=== PATIENT | male | born 1955 | race Caucasian/White ===

== ENCOUNTER 2016-09-29 14:08 | Inpatient (IN) | payer MEDICARE, MEDICAID ==
[~2016-09-29] VITALS: Ht 175.3 cm; Wt 102.1 kg
[2016-09-29] VITALS (7 sets, daily range): BP systolic 118–134; BP diastolic 72–89
[~2016-09-29 14:08] MED LIST: IBUPROFEN600 MG ORAL; NORVASC10 MG ORAL; SURMONTIL50 MG PO
[2016-09-29] MEDS ORDERED: UNOBMED (14:30)
[2016-09-29] MEDS ORDERED: Nitroglycerin 2% oint pkt TOPIC ONE ×2 (14:30→14:33)
[2016-09-29] MEDS ORDERED: HYDROmorphone 1mg/ml Carpuject IVP ONE ×2 (14:30→15:45)
[2016-09-29] MEDS ORDERED: Nitroglycerin Subl 0.4mg tab (Bottle Of 25) SL ONE (14:34)
[2016-09-29] MEDS: Nitroglycerin Subl 0.4mg tab (Bottle Of 25) SL PRN ×3 (14:40→15:03)
--- NOTE | 2016-09-29 14:49 | Diagnostic Imaging Report ---
Indication: Chest Pain Comparison: 03/21/14 A single view chest radiograph was obtained. Findings: No definite infiltrate or pulmonary vascular congestion identified. Lung volumes are low. The heart is enlarged. The aorta is mildly enlarged consistent with atherosclerotic vascular disease. The bones are osteopenic. Impression: No acute disease
[2016-09-29 14:50] LABS: BASOPHILS % (AUTO) 1.4 % (0.0-2.0); EOSINOPHILS % (AUTO) 6.3 % (0.0-3.0); LYMPHOCYTES % (AUTO) 22.9 % (20.0-45.0); MEAN CORPUSCULAR HEMOGLOBIN 31.2 PG (27.0-31.0); MEAN CORPUSCULAR HGB CONC 32.9 G/DL (32.0-36.0); MEAN CORPUSCULAR VOLUME 95 FL (80-99); MEAN PLATELET VOLUME 9.5 FL (6.5-10.1); MONOCYTES % (AUTO) 8.1 % (1.0-10.0); NEUTROPHILS % (AUTO) 61.3 % (45.0-75.0); PLATELET COUNT 193 K/UL (150-450); RED BLOOD COUNT 4.54 M/UL (4.70-6.10); RED CELL DISTRIBUTION WIDTH 11.5 % (11.6-14.8); WHITE BLOOD COUNT 4.9 K/UL (4.8-10.8)
[2016-09-29 15:05] LABS: ALANINE AMINOTRANSFERASE 17 U/L (3-41); ALBUMIN/GLOBULIN RATIO 1.8 (1.0-2.7); ANION GAP 16 (5-15); ASPARTATE AMINO TRANSFERASE 23 U/L (5-40); CALCIUM 8.8 mg/dL (8.6-10.2); CARBON DIOXIDE 25 mEQ/L (20-30); CHLORIDE 103 mEQ/L (98-107); CREATININE 1.3 mg/dL (0.7-1.2); GLOMERULAR FILTRATION RATE 56.1 mL/min (>60); HEMOLYSIS 35; SODIUM 144 mEQ/L (135-145); TOTAL PROTEIN 6.2 g/dL (6.6-8.7)
[2016-09-29] MEDS ORDERED: PLAVIX75 MG ORAL (15:07)
[2016-09-29] MEDS ORDERED: LASIX40 MG ORAL (15:07)
[2016-09-29] MEDS ORDERED: NORVASC10 MG ORAL (15:07)
[2016-09-29] MEDS ORDERED: ASPIR 8181 MG ORAL (15:07)
[2016-09-29 15:11] LABS: TROPONIN I < 0.30 ng/mL (<=0.30)
--- NOTE | 2016-09-29 15:16 | Emergency Room Report ---
History of Present Illness General Chief Complaint: Chest Pain Source: Patient Present Illness HPI Patient presents with chest pain that's increasing. He's been having it intermittently over last few days. This morning became severe about 6 AM. Pressure radiating to both shoulders, now is 9/10. He took a baby aspirin this morning. He said stents placed. He also states he's had blood clots in his lungs. He is taking Plavix at this time. Also is on Lasix. He denies any pain in his calves. There is chronic swelling in LE for which he takes Lasix not take this morning. No fevers, productive cough, NVD, change in bowels. No hematuria. No anxiety. Post CABG. Allergies: Coded Allergies: No Known Allergies (Unverified , 03/21/14) Patient History Past Medical History: see triage record Past Surgical History: CABG, PTCA Social History: Denies: smoking Social History Narrative at home Reviewed Nursing Documentation: PMH: Agreed, PSxH: Agreed Nursing Documentation-PMH Past Medical History: No History, Except For Hx Cardiac Problems: Yes - LA 2009, 3 stents, triple bypass 2009, high cholesterol Hx Hypertension: Yes Hx Cancer: No Hx Gastrointestinal Problems: No Hx Neurological Problems: No Review of Systems All Other Systems: negative except mentioned in HPI Physical Exam Vital Signs Date Time Temp Pulse Resp B/P Pulse Ox O2 Delivery O2 Flow Rate FiO2 09/29/16 14:17 98.1 69 9 134/89 09/29/16 14:28 Room Air 09/29/16 14:28 95 2.0 Sp02 EP Interpretation: reviewed, normal General Appearance: well appearing, no apparent distress, GCS 15 Head: normocephalic Eyes: bilateral eye PERRL, bilateral eye normal inspection ENT: moist mucus membranes Neck: supple Respiratory: lungs clear, normal breath sounds Cardiovascular #1: regular rate, rhythm Cardiovascular #2: 2+ radial (R) Gastrointestinal: normal inspection, normal bowel sounds, non tender, no mass, non-distended Musculoskeletal: back normal, gait/station normal, normal range of motion Neurologic: alert, oriented x3 Skin: normal inspection, warm/dry Medical Decision Making Diagnostic Impression: Primary Impression: ACS (acute coronary syndrome) Additional Impression: UTI (urinary tract infection) Qualified Codes: N30.00 - Acute cystitis without hematuria ER Course The patient presents with substernal chest pressure similar to when his head heart attack in the past. Differential includes acute myocardial infarction, acute coronary syndrome, pulmonary embolus, unstable angina, costochondritis, GERD amongst others. Emergent evaluation is undertaken to exclude them I. Also patient will be treated with aspirin nitrates and his analgesics. Labs neg for cardiac injury. Still with pain. EKG without injury. Repeat analgesia. CTA - no PE or dissection. UTI - start antibiotics. Admit telemetry Dr. Coronado. Laboratory Tests Test 09/29/16 14:20 09/29/16 15:30 White Blood Count 4.9 K/UL (4.8-10.8) Red Blood Count 4.54 M/UL (4.70-6.10) L Hemoglobin 14.1 G/DL (14.2-18.0) L Hematocrit 43.1 % (42.0-52.0) Mean Corpuscular Volume 95 FL (80-99) Mean Corpuscular Hemoglobin 31.2 PG (27.0-31.0) H Mean Corpuscular Hemoglobin Concent 32.9 G/DL (32.0-36.0) Red Cell Distribution Width 11.5 % (11.6-14.8) L Platelet Count 193 K/UL (150-450) Mean Platelet Volume 9.5 FL (6.5-10.1) Neutrophils (%) (Auto) 61.3 % (45.0-75.0) Lymphocytes (%) (Auto) 22.9 % (20.0-45.0) Monocytes (%) (Auto) 8.1 % (1.0-10.0) Eosinophils (%) (Auto) 6.3 % (0.0-3.0) H Basophils (%) (Auto) 1.4 % (0.0-2.0) Prothrombin Time 10.0 SEC (9.30-11.50) Prothrombin Time INR 1.0 (0.9-1.1) PTT 28 SEC (23-33) Sodium Level 144 mEQ/L (135-145) Potassium Level 4.0 mEQ/L (3.4-4.9) Chloride Level 103 mEQ/L (98-107) Carbon Dioxide Level 25 mEQ/L (20-30) Anion Gap 16 (5-15) H Blood Urea Nitrogen 24 mg/dL (7-23) H Creatinine 1.3 mg/dL (0.7-1.2) H Estimate Glomerular Filtration Rate 56.1 mL/min (>60) Glucose Level 100 mg/dL (74-106) Calcium Level 8.8 mg/dL (8.6-10.2) Total Bilirubin 0.5 mg/dL (0.0-1.2) Aspartate Amino Transferase (AST) 23 U/L (5-40) Alanine Aminotransferase (ALT) 17 U/L (3-41) Alkaline Phosphatase 67 U/L (40-129) Total Creatine Kinase 241 U/L (38-174) H Troponin I < 0.30 ng/mL (<=0.30) Pro-B-Type Natriuretic Peptide 221 pg/mL (0-125) H Total Protein 6.2 g/dL (6.6-8.7) L Albumin 4.0 g/dL (3.5-5.2) Globulin 2.2 g/dL Albumin/Globulin Ratio 1.8 (1.0-2.7) Urine Color Yellow Urine Appearance Slightly cloudy Urine pH 5 (4.5-8.0) Urine Specific [place] 1.030 (1.005-1.035) Urine Protein 2+ (NEGATIVE) H Urine Glucose (UA) Negative (NEGATIVE) Urine Ketones Negative (NEGATIVE) Urine Occult Blood 2+ (NEGATIVE) H Urine Nitrite Negative (NEGATIVE) Urine Bilirubin Negative (NEGATIVE) Urine Urobilinogen 1 MG/DL (0.0-1.0) H Urine Leukocyte Esterase 1+ (NEGATIVE) H Urine RBC 5-10 /HPF (0 - 0) H Urine WBC 10-15 /HPF (0 - 0) H Urine Squamous Epithelial Cells Occasional /LPF Urine Bacteria Moderate /HPF (NONE) H Urine Opiates Screen Negative (NEGATIVE) Urine Barbiturates Screen Negative (NEGATIVE) Phencyclidine (PCP) Screen Negative (NEGATIVE) Urine Amphetamines Screen Negative (NEGATIVE) Urine Benzodiazepines Screen Negative (NEGATIVE) Urine Cocaine Screen Negative (NEGATIVE) Urine Marijuana (THC) Screen Negative (NEGATIVE) EKG Diagnostic Results Rate: normal Rhythm: NSR ST Segments: no acute changes - bifasicular block Rhythm Strip Diag. Results EP Interpretation: yes Rhythm: NSR, no PVC's, no ectopy Chest X-Ray Diagnostic Results EP Interpretation: Yes Findings: no consolidation, no effusion, no pneumothorax, no acute cardiopulmonary disease, other - CABG Number of Views: 1 CT/MRI/US Diagnostic Results CT/MRI/US Diagnostic Results : Imaging Test Ordered: CTA Impression CTA impression: No evidence of pulmonary embolus. No evidence of aortic dissection or aneurysm. Mild atherosclerotic vascular disease. Old granulomatous disease. Sternotomy. Tiny liver cyst. Hiatal hernia. Last Vital Signs Date Time Temp Pulse Resp B/P Pulse Ox O2 Delivery O2 Flow Rate FiO2 09/29/16 16:07 98.1 09/29/16 16:00 55 15 122/77 98 Room Air 09/29/16 15:00 2.0 Status: improved Disposition: ADMITTED INPATIENT Condition: Serious Referrals: NOT CHOSEN IPA/,REFERRING (PCP) Anirudh Grayson M.D. September 29, 2016 15:16
[2016-09-29 15:57] LABS: KETONES,URINE NEGATIVE (NEGATIVE); LEUKOCYTE ESTERASE ,URINE 1+ (NEGATIVE); NITRITE,URINE NEGATIVE (NEGATIVE); PH,URINE 5 (4.5-8.0); PROTEIN,URINE 2+ (NEGATIVE); UROBILINOGEN,URINE 1 MG/DL (0.0-1.0)
[2016-09-29 15:59] LABS: APPEARANCE,URINE SLIGHTLY CLOUDY
[2016-09-29 16:10] LABS: BACTERIA,URINE MODERATE /HPF; SQUAMOUS EPITHELIAL CELL,UR OCCASIONAL /LPF (NONE/OCC)
--- NOTE | 2016-09-29 16:14 | Diagnostic Imaging Report ---
Indication: Chest pain Technique: Continuous helical transaxial imaging of the chest was obtained from the thoracic inlet to the upper abdomen during rapid intravenous contrast administration. Arterial phase of enhancement obtained. Coronal 2-D reformats were also obtained and maximum intensity projection images in multiple planes. Study obtained in a Siemens sensation [address] Total Dose length Product (DLP): [address] Dose Index Volume (CTDIvol): 12.6, 63.1, 28.3 mGy Comparison: None Findings: Pulmonary artery is reasonably opacified. There is no filling defect to suggest pulmonary embolus. Aorta is ectatic and mildly enlarged with mural calcification. Hiatal hernia is present. No adenopathy is identified. Calcified granuloma noted at the right lung base. Heart is enlarged. Sternotomy is noted. Tiny hypodensity noted in the lateral segment left lobe of the liver. This is probably a small cyst. Impression: No evidence of pulmonary embolus. No evidence of aortic dissection or aneurysm. Mild atherosclerotic vascular disease Old granulomatous disease Sternotomy Tiny liver cyst. Hiatal hernia The CT scanner at [facility] is accredited by the [employer] and the scans are performed using protocols designed to limit radiation exposure to as low as reasonably achievable to attain images of sufficient resolution adequate for diagnostic evaluation.
[2016-09-29] MEDS ORDERED: cefTRIAXone 1 GM in NS 55 ML IVPB ONE (16:45)
[2016-09-29] MEDS ORDERED: Miralax 17gm pkt ORAL PRN (18:30)
[2016-09-29] MEDS ORDERED: Ketorolac 30mg Inj IV PRN (18:30)
[2016-09-29] MEDS ORDERED: Diltiazem 25mg/5ml IV PRN (18:30)
[2016-09-29] MEDS ORDERED: Enalaprilat 2.5mg/2ml Inj IV PRN (18:30)
[2016-09-29] MEDS ORDERED: DuoNeb 0.5-3(2.5)mg/3ml neb HHN PRN (18:30)
[2016-09-29] MEDS ORDERED: Nitroglycerin Subl 0.4mg tab (Bottle Of 25) SL PRN (18:45)
--- NOTE | 2016-09-29 19:44 | Consultation ---
Consult Note Consult Note Cardiology for Dr Thompson full note dictated #[id number] ALLIE JENKINS September 29, 2016 19:44
[2016-09-29] MEDS: Heparin 5000 units/ml inj SUBQ SCH (21:00)
[2016-09-29] MEDS: Metoprolol Tartrate 12.5mg TAB ORAL SCH (21:00)
--- NOTE | 2016-09-29 22:58 | Consultation ---
DATE OF CONSULTATION: CARDIOLOGY CONSULTATION REASON FOR CONSULTATION: Chest pain. HISTORY OF PRESENT ILLNESS: The patient is a 60-year-ld white male with history of myocardial infarction in 2009, coronary artery bypass graft surgery in 2009 (hospitalized in [place], records not available) [facility] and most recently hospitalization at [facility] in July 2016. He also has a history of hypertension, hyperlipidemia, and schizoaffective disorder. 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 He presents with chest pain which he states radiated to both shoulders and his left elbow, pain started while he was at rest today at about 9 a.m. and lasted for several hours. He had no associated shortness of breath or palpitations but did note dizziness and felt faint. He was brought to the emergency room by a friend. His initial EKG did not show any ischemic changes. An initial troponin level was negative. He is admitted for further treatment. His most recent hospitalization at [facility] is significant for presentation with chest pain. During that admission, he ruled out for myocardial infarction and underwent stress nuclear study on 08/15/2016. This study showed 3% reversible and 6% fixed perfusion defect. The reversible perfusion defect was small in the apical, left anterior descending territory, and fixed perfusion defect was in the circumflex territory, ejection fraction was 48% by gated SPECT. He underwent an echo as well during that hospitalization, which showed a low normal ejection fraction of 52%. There was mild diastolic dysfunction, mildly depressed right ventricular systolic function, and no regional wall motion abnormalities. There were no significant valvular lesions. MEDICATIONS: Currently Lipitor 10 mg daily, aspirin 81 mg daily, Plavix 75 mg daily, Norvasc 10 mg daily. Triamterene HCT 50/25 daily, and Lasix 40 mg daily. ALLERGIES: No known drug allergies. PAST MEDICAL HISTORY: As noted above. Also history of bilateral knee replacement 2014 and 2015, history of back surgery about 15 to 20 years ago, history of diverticulitis with abdominal surgeries also 15 to 20 years ago. SOCIAL HISTORY: The patient is retired (disabled). He denies alcohol, tobacco, or drug use. PHYSICAL EXAMINATION: VITAL SIGNS: Blood pressure is 128/79, pulse 63 regular, respirations 19, afebrile. GENERAL: Alert, well-developed white male, in no acute distress. HEENT: Normocephalic and atraumatic. Pupils are equal, round, and reactive to light. Sclerae anicteric. Oral mucosa are moist. NECK: Supple. There is no jugular venous distention. No carotid bruits. LUNGS: Clear to auscultation bilaterally. HEART: Regular rate and rhythm. S1 and S2. No murmurs or S3. ABDOMEN: Multiple healed surgical scars. Soft and nontender. No palpable mass. No organomegaly. EXTREMITIES: There are bilateral knee scars, surgical scars, and there is 1+ edema of both distal lower extremities. A 2+ dorsalis pedis pulses bilaterally. LABORATORY AND DIAGNOSTIC DATA: Hemoglobin 14, hematocrit 43, white blood count 4900, platelets 193,000. Sodium 144, potassium 4.0, BUN 24, creatinine 1.3. Troponin less than 0.3. Natriuretic peptide 221. Toxicology screen is negative. Urinalysis 2+ protein, 1+ leukocyte esterase, 5 to 10 red blood cells, 10 to 15 white blood cells. EKG shows sinus rhythm at a rate of 62 beats per minute, left axis deviation, and nonspecific T-wave changes. ASSESSMENT AND RECOMMENDATIONS: The patient is a 60-year-old man with a previous history of myocardial infarction, coronary artery bypass graft surgery and previous stents but with a recent negative stress nuclear study showing only 3% reversible perfusion defect ([facility] He presents now with chest pain. His initial troponin is negative. An initial EKG does not show any definite ischemic changes. He will be admitted to telemetry and will be ruled out for myocardial infarction with serial cardiac enzymes and EKG. His usual cardiac medications will be continued including aspirin, Plavix, statin, and antihypertensives. He will also be started on a beta [place]. Further treatment recommendations will be made based on the results of the above testing. He may have noncardiac cause of his chest pain. Lizzy Ahuja M.D. DR: Amita JOB#: [id number] CC:
[2016-09-30 03:57] VITALS: BP 143/90
[2016-09-30 08:00] VITALS: BP 138/74
[2016-09-30 08:42] LABS: BASOPHILS % (AUTO) 2.7 % (0.0-2.0); EOSINOPHILS % (AUTO) 10.2 % (0.0-3.0); LYMPHOCYTES % (AUTO) 25.1 % (20.0-45.0); MEAN CORPUSCULAR HEMOGLOBIN 31.9 PG (27.0-31.0); MEAN CORPUSCULAR HGB CONC 32.5 G/DL (32.0-36.0); MEAN CORPUSCULAR VOLUME 98 FL (80-99); MEAN PLATELET VOLUME 8.9 FL (6.5-10.1); MONOCYTES % (AUTO) 10.6 % (1.0-10.0); NEUTROPHILS % (AUTO) 51.5 % (45.0-75.0); PLATELET COUNT 176 K/UL (150-450); PROTHROMBIN TIME 10.2 SEC (9.30-11.50); RED BLOOD COUNT 4.26 M/UL (4.70-6.10); RED CELL DISTRIBUTION WIDTH 12.1 % (11.6-14.8); WHITE BLOOD COUNT 3.6 K/UL (4.8-10.8)
[2016-09-30 08:59] LABS: CHOLESTEROL 152 mg/dL (< 200); CHOLESTEROL/HDL RATIO 3.6 (3.3-4.4); CRP QUANT < 0.3 mg/dL (< 0.5); HEMOLYSIS 3; LDL CHOLESTEROL (CALC.) 88 mg/dL (60-99)
[2016-09-30] MEDS ORDERED: Aspirin EC 81mg tab ORAL SCH (09:00)
[2016-09-30] MEDS: Aspirin Baby 81mg ORAL SCH (09:28)
[2016-09-30] MEDS: Furosemide 40mg tab ORAL SCH (09:28)
[2016-09-30] MEDS: Heparin 5000 units/ml inj SUBQ SCH ×2 (09:29→21:02)
[2016-09-30] MEDS: Metoprolol Tartrate 12.5mg TAB ORAL SCH ×2 (09:35→20:59)
--- NOTE | 2016-09-30 11:02 | History and Physical ---
History of Present Illness General Date patient seen: September 30, 2016 Reason for Hospitalization: Chest Pain Present Illness HPI 60 year old male with hx of CAD, PE, IVC, coronary artery stents presents with chest pain. He's been having it intermittently over last few days. Pressure radiating to both shoulders and right now is 9/10. He is also c/o pain in his toes and legs. Allergies: Coded Allergies: No Known Allergies (Unverified , 03/21/14) Medication History Scheduled Amlodipine Besylate (Norvasc), 10 MG ORAL DAILY, (Reported) Amlodipine Besylate (Norvasc), 10 MG ORAL DAILY, (Reported) Aspirin* (Aspir 81*), 81 MG ORAL DAILY, (Reported) Clopidogrel Bisulfate* (Plavix*), 75 MG ORAL DAILY, (Reported) Furosemide* (Lasix*), 40 MG ORAL DAILY, (Reported) Ibuprofen* (Motrin*), 600 MG ORAL THREE TIMES A DAY, (Reported) Discontinued Medications Unable to Obtain Medications (Unable To Obtain Meds), (Reported) Discontinued Reason: MD discontinued med Patient History Healthcare decision maker N Resuscitation status Full Code Advanced Directive on File No Past Medical/Surgical History Past Medical/Surgical History: (1) HTN (hypertension) (2) CAD (coronary artery disease) Review of Systems All Other Systems: negative except mentioned in HPI Physical Exam General Appearance: WD/WN, no apparent distress Lines, tubes and drains: peripheral HEENT: normocephalic, atraumatic Neck: non-tender, normal alignment Respiratory/Chest: chest wall non-tender, lungs clear Breasts: no masses Cardiovascular/Chest: normal peripheral pulses Abdomen: normal bowel sounds Genitourinary/Rectal: normal genital exam Last 24 Hour Vital Signs Date Time Temp Pulse Resp B/P Pulse Ox O2 Delivery O2 Flow Rate FiO2 09/30/16 09:35 65 138/74 09/30/16 09:28 65 138/74 09/30/16 08:00 97.0 65 20 138/74 100 Room Air 09/30/16 08:00 63 09/30/16 04:00 72 09/30/16 03:57 98.5 66 20 143/90 98 Room Air 09/30/16 00:00 83 09/29/16 23:54 98.4 70 20 130/72 92 Room Air 09/29/16 21:00 106 62/52 09/29/16 20:21 98.5 56 21 118/74 98 Room Air 09/29/16 20:00 63 09/29/16 17:15 96.1 63 19 128/79 96 Room Air 09/29/16 16:33 98.1 55 15 122/77 98 Room Air 2.0 09/29/16 16:07 98.1 09/29/16 16:00 55 15 122/77 98 Room Air 09/29/16 15:03 119/75 09/29/16 15:00 88 17 119/75 96 Nasal Cannula 2.0 09/29/16 14:59 98.1 09/29/16 14:45 122/84 09/29/16 14:43 77 13 122/84 94 Nasal Cannula 2.0 09/29/16 14:42 134/89 09/29/16 14:40 134/89 09/29/16 14:28 98.1 69 9 134/89 95 Nasal Cannula 2.0 09/29/16 14:28 69 9 Room Air 09/29/16 14:17 98.1 69 9 134/89 Intake and Output 09/29/16 09/30/16 19:00 07:00 Intake Total 180 ml Output Total 50 ml Balance 130 ml Intake Oral 125 ml IV Total 55 ml Output Urine Total 50 ml # Voids 1 2 Laboratory Tests Test 09/29/16 14:20 09/29/16 15:30 09/30/16 06:30 White Blood Count 4.9 K/UL (4.8-10.8) 3.6 K/UL (4.8-10.8) L Red Blood Count 4.54 M/UL (4.70-6.10) L 4.26 M/UL (4.70-6.10) L Hemoglobin 14.1 G/DL (14.2-18.0) L 13.6 G/DL (14.2-18.0) L Hematocrit 43.1 % (42.0-52.0) 41.7 % (42.0-52.0) L Mean Corpuscular Volume 95 FL (80-99) 98 FL (80-99) Mean Corpuscular Hemoglobin 31.2 PG (27.0-31.0) H 31.9 PG (27.0-31.0) H Mean Corpuscular Hemoglobin Concent 32.9 G/DL (32.0-36.0) 32.5 G/DL (32.0-36.0) Red Cell Distribution Width 11.5 % (11.6-14.8) L 12.1 % (11.6-14.8) Platelet Count 193 K/UL (150-450) 176 K/UL (150-450) Mean Platelet Volume 9.5 FL (6.5-10.1) 8.9 FL (6.5-10.1) Neutrophils (%) (Auto) 61.3 % (45.0-75.0) 51.5 % (45.0-75.0) Lymphocytes (%) (Auto) 22.9 % (20.0-45.0) 25.1 % (20.0-45.0) Monocytes (%) (Auto) 8.1 % (1.0-10.0) 10.6 % (1.0-10.0) H Eosinophils (%) (Auto) 6.3 % (0.0-3.0) H 10.2 % (0.0-3.0) H Basophils (%) (Auto) 1.4 % (0.0-2.0) 2.7 % (0.0-2.0) H Prothrombin Time 10.0 SEC (9.30-11.50) 10.2 SEC (9.30-11.50) Prothromb Time International Ratio 1.0 (0.9-1.1) 1.0 (0.9-1.1) Activated Partial Thromboplast Time 28 SEC (23-33) 28 SEC (23-33) Sodium Level 144 mEQ/L (135-145) Potassium Level 4.0 mEQ/L (3.4-4.9) Chloride Level 103 mEQ/L (98-107) Carbon Dioxide Level 25 mEQ/L (20-30) Anion Gap 16 (5-15) H Blood Urea Nitrogen 24 mg/dL (7-23) H Creatinine 1.3 mg/dL (0.7-1.2) H Estimat Glomerular Filtration Rate 56.1 mL/min (>60) Glucose Level 100 mg/dL (74-106) Calcium Level 8.8 mg/dL (8.6-10.2) Total Bilirubin 0.5 mg/dL (0.0-1.2) Aspartate Amino Transf (AST/SGOT) 23 U/L (5-40) Alanine Aminotransferase (ALT/SGPT) 17 U/L (3-41) Alkaline Phosphatase 67 U/L (40-129) Total Creatine Kinase 241 U/L (38-174) H Troponin I < 0.30 ng/mL (<=0.30) Pro-B-Type Natriuretic Peptide 221 pg/mL (0-125) H Total Protein 6.2 g/dL (6.6-8.7) L Albumin 4.0 g/dL (3.5-5.2) Globulin 2.2 g/dL Albumin/Globulin Ratio 1.8 (1.0-2.7) Urine Color Yellow Urine Appearance Slightly cloudy Urine pH 5 (4.5-8.0) Urine Specific [place] 1.030 (1.005-1.035) Urine Protein 2+ (NEGATIVE) H Urine Glucose (UA) Negative (NEGATIVE) Urine Ketones Negative (NEGATIVE) Urine Occult Blood 2+ (NEGATIVE) H Urine Nitrite Negative (NEGATIVE) Urine Bilirubin Negative (NEGATIVE) Urine Urobilinogen 1 MG/DL (0.0-1.0) H Urine Leukocyte Esterase 1+ (NEGATIVE) H Urine RBC 5-10 /HPF (0 - 0) H Urine WBC 10-15 /HPF (0 - 0) H Urine Squamous Epithelial Cells Occasional /LPF Urine Bacteria Moderate /HPF (NONE) H Urine Opiates Screen Negative (NEGATIVE) Urine Barbiturates Screen Negative (NEGATIVE) Phencyclidine (PCP) Screen Negative (NEGATIVE) Urine Amphetamines Screen Negative (NEGATIVE) Urine Benzodiazepines Screen Negative (NEGATIVE) Urine Cocaine Screen Negative (NEGATIVE) Urine Marijuana (THC) Screen Negative (NEGATIVE) C-Reactive Protein, Quantitative < 0.3 mg/dL (< 0.5) Triglycerides Level 109 mg/dL (< 150) Cholesterol Level 152 mg/dL (< 200) LDL Cholesterol 88 mg/dL (60-99) HDL Cholesterol 42 mg/dL (> 60) Cholesterol/HDL Ratio 3.6 (3.3-4.4) Thyroid Stimulating Hormone (TSH) 1.470 uIU/mL (0.300-4.500) Microbiology Date/Time Source Procedure Growth Status 09/29/16 15:30 Urine,Clean Catch Urine Culture - Preliminary NO GROWTH Resulted Height (Feet): 5 Height (Inches): 9.00 Weight (Pounds): 225 Medications Current Medications Medications (Trade) Dose Ordered Sig/Hal Route PRN Reason Start Time Stop Time Status Last Admin Dose Admin Acetaminophen (Tylenol) 650 mg Q4H PRN ORAL T>100.5 09/29/16 18:30 10/29/16 18:29 Albuterol/ Ipratropium (DuoNeb 0.5-3(2.5)mg/3ml) 3 ml Q4H PRN HHN Shortness of Breath 09/29/16 18:30 10/04/16 18:29 Amlodipine Besylate (Norvasc) 10 mg DAILY ORAL 09/30/16 09:00 10/30/16 08:59 09/30/16 09:28 Aspirin (ASA) 162 mg DAILY ORAL 09/30/16 09:00 10/30/16 08:59 09/30/16 09:28 Clopidogrel Bisulfate (Plavix) 75 mg DAILY ORAL 09/30/16 09:00 10/30/16 08:59 09/30/16 09:28 Diltiazem HCl (Cardizem) 10 mg EVERY HOUR PRN IV heart rate more than 120 09/29/16 18:30 10/29/16 18:29 Enalaprilat (Vasotec) 2.5 mg EVERY 6 HOURS PRN IV sbp more than 160 09/29/16 18:30 10/29/16 18:29 Furosemide (Lasix) 40 mg DAILY ORAL 09/30/16 09:00 10/30/16 08:59 09/30/16 09:28 Heparin Sodium (Porcine) (Heparin 5000 units/ml) 5,000 units EVERY 12 HOURS SUBQ 09/29/16 21:00 10/29/16 20:59 09/30/16 09:29 Metoprolol Tartrate (Lopressor) 12.5 mg Q12HR ORAL 09/29/16 21:00 10/29/16 20:59 09/30/16 09:35 Morphine Sulfate (Morphine Sulfate) 2 mg Q4H PRN IVP Severe Pain (Pain Scale 7-10) 09/29/16 18:30 10/06/16 18:29 Nitroglycerin (Ntg) 0.4 mg Q5MIN X 3 DOSES PRN SL Prn Chest Pain 09/29/16 18:45 10/29/16 18:44 Ondansetron HCl (Zofran) 4 mg Q6H PRN IVP Nausea & Vomiting 09/29/16 18:30 10/29/16 18:29 Pantoprazole (Protonix) 40 mg DAILY ORAL 09/30/16 09:00 10/30/16 08:59 09/30/16 09:28 Polyethylene Glycol (Miralax) 17 gm DAILYPRN PRN ORAL Constipation 09/29/16 18:30 10/29/16 18:29 Temazepam (Restoril) 15 mg HSPRN PRN ORAL Insomnia 09/29/16 21:00 10/06/16 20:59 Assessment/Plan Problem List: (1) ACS (acute coronary syndrome) ICD Codes: I20.0 - Unstable angina SNOMED: 003563910 (2) HTN (hypertension) ICD Codes: I10 - Essential (primary) hypertension SNOMED: 67028154 (3) CAD (coronary artery disease) ICD Codes: I25.10 - Atherosclerotic heart disease of [place] coronary artery without angina pectoris SNOMED: 21307818 Assessment/Plan serial ekg, troponin echo monitor BP cardio evaluation CHANDLER MARIA September 30, 2016 11:02
[2016-09-30] MEDS: Morphine Sulfate 2mg/ml Inj IVP PRN ×3 (11:19→20:57)
[2016-09-30 12:00] VITALS: BP 149/98
--- NOTE | 2016-09-30 14:12 | Cardiology Progress Note ---
Assessment/Plan Status: stable, unchanged Status Narrative Atypical CP in pt w/ hx of CAD , previous CABG Recent stress nuc negative for ischemia ( 3% rev perf defect) at [facility] in 07/2016 Pt ruling out for [place] Assessment/Plan Check additional troponin, EKG Continue pt's usual meds for CAD Advance metoprolol for BP control ECHO to evaluate LV wall motion. Consider further eval for noncardiac causes of chest pain if rules out ( ? musculoskel or gi) Subjective ROS Limited/Unobtainable: No Subjective Cardiology - coverage for Dr. Thompson Pt continues to c/o chest pain and bilat shoulder pain, worse w/ movement. States pain present for a few days. Objective Last 24 Hour Vital Signs Date Time Temp Pulse Resp B/P Pulse Ox O2 Delivery O2 Flow Rate FiO2 09/30/16 12:00 97.2 69 20 149/98 95 Room Air 09/30/16 12:00 65 09/30/16 11:45 97.0 09/30/16 09:35 65 138/74 09/30/16 09:28 65 138/74 09/30/16 08:00 97.0 65 20 138/74 100 Room Air 09/30/16 08:00 63 09/30/16 04:00 72 09/30/16 03:57 98.5 66 20 143/90 98 Room Air 09/30/16 00:00 83 09/29/16 23:54 98.4 70 20 130/72 92 Room Air 09/29/16 21:00 106 62/52 09/29/16 20:21 98.5 56 21 118/74 98 Room Air 09/29/16 20:00 63 09/29/16 17:15 96.1 63 19 128/79 96 Room Air 09/29/16 16:33 98.1 55 15 122/77 98 Room Air 2.0 09/29/16 16:07 98.1 09/29/16 16:00 55 15 122/77 98 Room Air 09/29/16 15:03 119/75 09/29/16 15:00 88 17 119/75 96 Nasal Cannula 2.0 09/29/16 14:59 98.1 09/29/16 14:45 122/84 09/29/16 14:43 77 13 122/84 94 Nasal Cannula 2.0 09/29/16 14:42 134/89 09/29/16 14:40 134/89 09/29/16 14:28 98.1 69 9 134/89 95 Nasal Cannula 2.0 09/29/16 14:28 69 9 Room Air 09/29/16 14:17 98.1 69 9 134/89 General Appearance: WD/WN, no apparent distress, alert EENT: PERRL/EOMI Neck: supple, no JVD Rhythm: NSR Cardiovascular: normal rate, regular rhythm, no gallop/murmur Respiratory/Chest: lungs clear Abdomen: non tender, soft Extremities: no swelling Intake and Output 09/29/16 09/30/16 19:00 07:00 Intake Total 180 ml Output Total 50 ml Balance 130 ml Intake Oral 125 ml IV Total 55 ml Output Urine Total 50 ml # Voids 1 2 Laboratory Tests Test 09/29/16 14:20 09/29/16 15:30 09/30/16 06:30 White Blood Count 4.9 K/UL (4.8-10.8) 3.6 K/UL (4.8-10.8) L Red Blood Count 4.54 M/UL (4.70-6.10) L 4.26 M/UL (4.70-6.10) L Hemoglobin 14.1 G/DL (14.2-18.0) L 13.6 G/DL (14.2-18.0) L Hematocrit 43.1 % (42.0-52.0) 41.7 % (42.0-52.0) L Mean Corpuscular Volume 95 FL (80-99) 98 FL (80-99) Mean Corpuscular Hemoglobin 31.2 PG (27.0-31.0) H 31.9 PG (27.0-31.0) H Mean Corpuscular Hemoglobin Concent 32.9 G/DL (32.0-36.0) 32.5 G/DL (32.0-36.0) Red Cell Distribution Width 11.5 % (11.6-14.8) L 12.1 % (11.6-14.8) Platelet Count 193 K/UL (150-450) 176 K/UL (150-450) Mean Platelet Volume 9.5 FL (6.5-10.1) 8.9 FL (6.5-10.1) Neutrophils (%) (Auto) 61.3 % (45.0-75.0) 51.5 % (45.0-75.0) Lymphocytes (%) (Auto) 22.9 % (20.0-45.0) 25.1 % (20.0-45.0) Monocytes (%) (Auto) 8.1 % (1.0-10.0) 10.6 % (1.0-10.0) H Eosinophils (%) (Auto) 6.3 % (0.0-3.0) H 10.2 % (0.0-3.0) H Basophils (%) (Auto) 1.4 % (0.0-2.0) 2.7 % (0.0-2.0) H Prothrombin Time 10.0 SEC (9.30-11.50) 10.2 SEC (9.30-11.50) Prothromb Time International Ratio 1.0 (0.9-1.1) 1.0 (0.9-1.1) Activated Partial Thromboplast Time 28 SEC (23-33) 28 SEC (23-33) Sodium Level 144 mEQ/L (135-145) Potassium Level 4.0 mEQ/L (3.4-4.9) Chloride Level 103 mEQ/L (98-107) Carbon Dioxide Level 25 mEQ/L (20-30) Anion Gap 16 (5-15) H Blood Urea Nitrogen 24 mg/dL (7-23) H Creatinine 1.3 mg/dL (0.7-1.2) H Estimat Glomerular Filtration Rate 56.1 mL/min (>60) Glucose Level 100 mg/dL (74-106) Calcium Level 8.8 mg/dL (8.6-10.2) Total Bilirubin 0.5 mg/dL (0.0-1.2) Aspartate Amino Transf (AST/SGOT) 23 U/L (5-40) Alanine Aminotransferase (ALT/SGPT) 17 U/L (3-41) Alkaline Phosphatase 67 U/L (40-129) Total Creatine Kinase 241 U/L (38-174) H Troponin I < 0.30 ng/mL (<=0.30) Pro-B-Type Natriuretic Peptide 221 pg/mL (0-125) H Total Protein 6.2 g/dL (6.6-8.7) L Albumin 4.0 g/dL (3.5-5.2) Globulin 2.2 g/dL Albumin/Globulin Ratio 1.8 (1.0-2.7) Urine Color Yellow Urine Appearance Slightly cloudy Urine pH 5 (4.5-8.0) Urine Specific [place] 1.030 (1.005-1.035) Urine Protein 2+ (NEGATIVE) H Urine Glucose (UA) Negative (NEGATIVE) Urine Ketones Negative (NEGATIVE) Urine Occult Blood 2+ (NEGATIVE) H Urine Nitrite Negative (NEGATIVE) Urine Bilirubin Negative (NEGATIVE) Urine Urobilinogen 1 MG/DL (0.0-1.0) H Urine Leukocyte Esterase 1+ (NEGATIVE) H Urine RBC 5-10 /HPF (0 - 0) H Urine WBC 10-15 /HPF (0 - 0) H Urine Squamous Epithelial Cells Occasional /LPF Urine Bacteria Moderate /HPF (NONE) H Urine Opiates Screen Negative (NEGATIVE) Urine Barbiturates Screen Negative (NEGATIVE) Phencyclidine (PCP) Screen Negative (NEGATIVE) Urine Amphetamines Screen Negative (NEGATIVE) Urine Benzodiazepines Screen Negative (NEGATIVE) Urine Cocaine Screen Negative (NEGATIVE) Urine Marijuana (THC) Screen Negative (NEGATIVE) C-Reactive Protein, Quantitative < 0.3 mg/dL (< 0.5) Triglycerides Level 109 mg/dL (< 150) Cholesterol Level 152 mg/dL (< 200) LDL Cholesterol 88 mg/dL (60-99) HDL Cholesterol 42 mg/dL (> 60) Cholesterol/HDL Ratio 3.6 (3.3-4.4) Thyroid Stimulating Hormone (TSH) 1.470 uIU/mL (0.300-4.500) Microbiology Date/Time Source Procedure Growth Status 09/29/16 15:30 Urine,Clean Catch Urine Culture - Preliminary NO GROWTH Resulted ALLIE JENKINS September 30, 2016 14:12
[2016-09-30 15:10] LABS: TROPONIN I < 0.30 ng/mL (<=0.30)
[2016-09-30 16:00] VITALS: BP 140/88
--- NOTE | 2016-09-30 17:33 | Cardiology Report ---
APPROVED REPORT EKG Measurement Heart [id number] Normal sinus rhythm Left axis deviation Incomplete right bundle branch block Minimal voltage criteria for LVH, may be normal variant Abnormal ECG
[2016-09-30 20:16] VITALS: BP 145/84
[2016-09-30 21:29] LABS: TROPONIN I < 0.30 ng/mL (<=0.30)
[2016-09-30 23:49] VITALS: BP 136/82
[2016-10-01 03:43] LABS: TROPONIN I < 0.30 ng/mL (<=0.30)
[2016-10-01 03:54] VITALS: BP 133/88
[2016-10-01 08:33] VITALS: BP 145/87
[2016-10-01] MEDS: Metoprolol Tartrate 12.5mg TAB ORAL SCH ×2 (08:33→20:53)
[2016-10-01] MEDS: Furosemide 40mg tab ORAL SCH (08:34)
[2016-10-01] MEDS: Aspirin Baby 81mg ORAL SCH (08:34)
[2016-10-01] MEDS: Heparin 5000 units/ml inj SUBQ SCH ×2 (08:37→20:54)
--- NOTE | 2016-10-01 11:07 | Pulmonology Progress Note ---
Assessment/Plan Problems: (1) ACS (acute coronary syndrome) (2) HTN (hypertension) (3) CAD (coronary artery disease) Assessment/Plan f/u by cardio check echo enzymes negative symptomatic treatment Subjective ROS Limited/Unobtainable: No Interval Events: chest pain is 08/04 Allergies: Coded Allergies: No Known Allergies (Unverified , 03/21/14) Objective Last 24 Hour Vital Signs Date Time Temp Pulse Resp B/P Pulse Ox O2 Delivery O2 Flow Rate FiO2 10/01/16 08:34 86 145/87 10/01/16 08:33 97.3 86 18 145/87 97 Room Air 10/01/16 08:33 86 145/87 10/01/16 07:45 65 18 Room Air 10/01/16 07:45 65 18 Room Air 21 10/01/16 04:00 92 10/01/16 03:54 98.1 65 20 133/88 95 Room Air 10/01/16 00:00 72 09/30/16 23:49 98.2 60 21 136/82 94 Room Air 09/30/16 20:59 69 145/84 09/30/16 20:16 98.8 69 20 145/84 93 Room Air 09/30/16 20:00 58 09/30/16 16:00 77 09/30/16 16:00 97.3 62 20 140/88 96 Room Air 09/30/16 15:50 97.2 09/30/16 12:00 97.2 69 20 149/98 95 Room Air 09/30/16 12:00 65 Intake and Output 09/30/16 10/01/16 19:00 07:00 Intake Total 320 ml Balance 320 ml Intake Oral 320 ml # Voids 4 2 General Appearance: WD/WN HEENT: normocephalic, atraumatic Respiratory/Chest: chest wall non-tender, lungs clear Cardiovascular: normal peripheral pulses, normal rate Abdomen: normal bowel sounds, soft, non tender Genitourinary: normal external genitalia Extremities: no cyanosis Skin: no rash Neurologic/Psychiatric: atm servicer II-XII grossly normal, no motor/sensory deficits Lymphatic: no groin adenopathy Microbiology Date/Time Source Procedure Growth Status 09/29/16 15:30 Urine,Clean Catch Urine Culture - Final NO GROWTH AFTER 48 HOURS Complete Laboratory Tests 09/30/16 14:25: Troponin I < 0.30 5/6/17 20:57: Troponin I < 0.30 10/01/16 02:55: Troponin I < 0.30 Current Medications Medications (Trade) Dose Ordered Sig/Hal Route PRN Reason Start Time Stop Time Status Last Admin Dose Admin Acetaminophen (Tylenol) 650 mg Q4H PRN ORAL T>100.5 09/29/16 18:30 10/29/16 18:29 Albuterol/ Ipratropium (DuoNeb 0.5-3(2.5)mg/3ml) 3 ml Q4H PRN HHN Shortness of Breath 09/29/16 18:30 10/04/16 18:29 Amlodipine Besylate (Norvasc) 10 mg DAILY ORAL 09/30/16 09:00 10/30/16 08:59 10/01/16 08:34 Aspirin (ASA) 162 mg DAILY ORAL 09/30/16 09:00 10/30/16 08:59 10/01/16 08:34 Clopidogrel Bisulfate (Plavix) 75 mg DAILY ORAL 09/30/16 09:00 10/30/16 08:59 10/01/16 08:34 Diltiazem HCl (Cardizem) 10 mg EVERY HOUR PRN IV heart rate more than 120 09/29/16 18:30 10/29/16 18:29 Enalaprilat (Vasotec) 2.5 mg EVERY 6 HOURS PRN IV sbp more than 160 09/29/16 18:30 10/29/16 18:29 Furosemide (Lasix) 40 mg DAILY ORAL 09/30/16 09:00 10/30/16 08:59 10/01/16 08:34 Heparin Sodium (Porcine) (Heparin 5000 units/ml) 5,000 units EVERY 12 HOURS SUBQ 09/29/16 21:00 10/29/16 20:59 10/01/16 08:37 Metoprolol Tartrate (Lopressor) 25 mg Q12HR ORAL 09/30/16 21:00 10/30/16 20:59 10/01/16 08:33 Morphine Sulfate (Morphine Sulfate) 2 mg Q4H PRN IVP Severe Pain (Pain Scale 7-10) 09/29/16 18:30 10/06/16 18:29 09/30/16 20:57 Nitroglycerin (Ntg) 0.4 mg Q5MIN X 3 DOSES PRN SL Prn Chest Pain 09/29/16 18:45 10/29/16 18:44 Ondansetron HCl (Zofran) 4 mg Q6H PRN IVP Nausea & Vomiting 09/29/16 18:30 10/29/16 18:29 09/30/16 20:52 Pantoprazole (Protonix) 40 mg DAILY ORAL 09/30/16 09:00 10/30/16 08:59 10/01/16 08:34 Polyethylene Glycol (Miralax) 17 gm DAILYPRN PRN ORAL Constipation 09/29/16 18:30 10/29/16 18:29 Temazepam (Restoril) 15 mg HSPRN PRN ORAL Insomnia 09/29/16 21:00 10/06/16 20:59 CHANDLER MARIA October 01, 2016 11:07
[2016-10-01 11:38] VITALS: BP 124/64
--- NOTE | 2016-10-01 14:34 | Cardiology Progress Note ---
Assessment/Plan Problem List: (1) CAD (coronary artery disease) (2) ACS (acute coronary syndrome) (3) HTN (hypertension) Status: doing well, stable Status Narrative Atypical CP in pt w/ hx of CAD , previous CABG Recent stress nuc negative for ischemia ( 3% rev perf defect) at [facility] in 07/2016 He has ruled out for DE. BP is controlled Assessment/Plan Can be dc d home from cardiac standpoint. Continue med rx - asa, plavix, b francisco and add statin Continue norvasc for hypertension Subjective ROS Limited/Unobtainable: No Subjective Cardiology - coverage for Dr. Thompson Pt continues to c/o chest pain, - reports improvement, to 5/10 in severity Objective Last 24 Hour Vital Signs Date Time Temp Pulse Resp B/P Pulse Ox O2 Delivery O2 Flow Rate FiO2 10/01/16 12:00 62 10/01/16 11:38 97.3 59 18 124/64 96 Room Air 10/01/16 08:34 86 145/87 10/01/16 08:33 97.3 86 18 145/87 97 Room Air 10/01/16 08:33 86 145/87 10/01/16 08:00 57 10/01/16 07:45 65 18 Room Air 10/01/16 07:45 65 18 Room Air 21 10/01/16 04:00 92 10/01/16 03:54 98.1 65 20 133/88 95 Room Air 10/01/16 00:00 72 09/30/16 23:49 98.2 60 21 136/82 94 Room Air 09/30/16 20:59 69 145/84 09/30/16 20:16 98.8 69 20 145/84 93 Room Air 09/30/16 20:00 58 09/30/16 16:00 77 09/30/16 16:00 97.3 62 20 140/88 96 Room Air 09/30/16 15:50 97.2 General Appearance: WD/WN, no apparent distress, alert EENT: PERRL/EOMI Neck: supple, no JVD Rhythm: NSR Cardiovascular: normal rate, regular rhythm, no gallop/murmur Respiratory/Chest: lungs clear Abdomen: non tender, soft Extremities: no swelling Intake and Output 09/30/16 10/01/16 19:00 07:00 Intake Total 320 ml Balance 320 ml Intake Oral 320 ml # Voids 4 2 Laboratory Tests Test 09/30/16 20:57 10/01/16 02:55 Troponin I < 0.30 ng/mL (<=0.30) < 0.30 ng/mL (<=0.30) Microbiology Date/Time Source Procedure Growth Status 09/29/16 15:30 Urine,Clean Catch Urine Culture - Final NO GROWTH AFTER 48 HOURS Complete ALLIE JENKINS October 01, 2016 14:34
[2016-10-01 15:38] VITALS: BP 126/75
[2016-10-01 18:33] LABS: TROPONIN I < 0.30 ng/mL (<=0.30)
[2016-10-01 20:00] VITALS: BP 148/57
[2016-10-02] VITALS: BP 139/87
[2016-10-02 04:00] VITALS: BP 151/99
[2016-10-02 08:00] VITALS: BP 140/96
--- NOTE | 2016-10-02 08:49 | Cardiology Report ---
APPROVED REPORT EXAM: Two-dimensional and M-mode echocardiogram with Doppler and color Doppler. INDICATION Left ventricular function M-Mode DIMENSIONS IVSd1.0 (0.7-1.1cm)Left Atrium (MM)2.8 (1.6-4.0cm) LVDd4.4 (3.5-5.6cm)Aortic Root3.9 (2.0-3.7cm) PWd0.8 (0.7-1.1cm)Aortic Cusp Exc.2.2 (1.5-2.0cm) LVDs3.1 (2.5-4.0cm) PWs0.9 cm Technically difficult study due to poor acoustic windows. Normal left ventricular chamber size, systolic function and wall motion. Left ventricular ejection fraction estimated to be 55-60%. Mild left ventricular hypertrophy. No evidence of pericardial fat or effusion. Mild left atrial enlargement by 2D. Right cardiac chamber sizes are within normal limits. Focal aortic valve sclerosis with adequate cusp excursion Thickened mitral valve leaflets with normal excursion. Mild mitral annulus and aortic root calcification. Pulmonic valve not well visualized. Normal tricuspid valve structure. IVC is normal in size with physiologic collapse. A color flow and spectral Doppler study was performed and revealed: No aortic regurgitation. Trace mitral regurgitation. Normal left ventricular function. Trace tricuspid regurgitation. Tricuspid systolic velocities suggests peak right ventricular systolic pressure of 28 mmHg Pulmonic regurgitation present.
[2016-10-02] MEDS: Aspirin Baby 81mg ORAL SCH (09:03)
[2016-10-02] MEDS: Furosemide 40mg tab ORAL SCH (09:03)
[2016-10-02] MEDS: Metoprolol Tartrate 12.5mg TAB ORAL SCH (09:04)
[2016-10-02] MEDS: Heparin 5000 units/ml inj SUBQ SCH (09:05)
[2016-10-02 12:00] VITALS: BP 157/84
--- NOTE | 2016-10-02 14:12 | Pulmonology Progress Note ---
Assessment/Plan Problems: (1) ACS (acute coronary syndrome) (2) HTN (hypertension) (3) CAD (coronary artery disease) Assessment/Plan f/u by cardio check echo enzymes negative symptomatic treatment dc home today Subjective ROS Limited/Unobtainable: No Interval Events: doing better, all tesitng were negative Allergies: Coded Allergies: No Known Allergies (Unverified , 03/21/14) Objective Last 24 Hour Vital Signs Date Time Temp Pulse Resp B/P Pulse Ox O2 Delivery O2 Flow Rate FiO2 10/02/16 12:00 97.2 64 19 157/84 96 Room Air 10/02/16 09:12 70 18 Room Air 21 10/02/16 09:04 65 154/103 10/02/16 09:04 65 154/103 10/02/16 08:00 97.2 65 19 140/96 99 Room Air 10/02/16 04:00 97.8 55 20 151/99 99 Room Air 10/02/16 04:00 55 10/02/16 00:00 97.5 59 20 139/87 99 Room Air 10/02/16 00:00 58 10/01/16 20:53 74 130/70 10/01/16 20:00 96.8 60 20 148/57 96 Room Air 10/01/16 20:00 60 10/01/16 20:00 96.8 60 20 148/57 96 Room Air 2.0 21 10/01/16 19:30 70 20 Room Air 21 10/01/16 16:00 62 10/01/16 15:38 97.0 74 18 126/75 97 Room Air Intake and Output 10/01/16 10/02/16 19:00 07:00 Intake Total 600 ml Balance 600 ml Intake Oral 600 ml # Voids 3 2 General Appearance: WD/WN HEENT: normocephalic, atraumatic Respiratory/Chest: chest wall non-tender, lungs clear Cardiovascular: normal peripheral pulses, normal rate Abdomen: normal bowel sounds, soft, non tender Skin: no rash Microbiology Date/Time Source Procedure Growth Status 09/29/16 15:30 Urine,Clean Catch Urine Culture - Final NO GROWTH AFTER 48 HOURS Complete Laboratory Tests 10/01/16 18:10: Troponin I < 0.30 Current Medications Medications (Trade) Dose Ordered Sig/Hal Route PRN Reason Start Time Stop Time Status Last Admin Dose Admin Acetaminophen (Tylenol) 650 mg Q4H PRN ORAL T>100.5 09/29/16 18:30 10/29/16 18:29 Albuterol/ Ipratropium (DuoNeb 0.5-3(2.5)mg/3ml) 3 ml Q4H PRN HHN Shortness of Breath 09/29/16 18:30 10/04/16 18:29 Amlodipine Besylate (Norvasc) 10 mg DAILY ORAL 09/30/16 09:00 10/30/16 08:59 10/02/16 09:04 Aspirin (ASA) 162 mg DAILY ORAL 09/30/16 09:00 10/30/16 08:59 10/02/16 09:03 Atorvastatin Calcium (Lipitor) 10 mg BEDTIME ORAL 10/01/16 21:00 10/31/16 20:59 10/01/16 20:52 Clopidogrel Bisulfate (Plavix) 75 mg DAILY ORAL 09/30/16 09:00 10/30/16 08:59 10/02/16 09:03 Diltiazem HCl (Cardizem) 10 mg EVERY HOUR PRN IV heart rate more than 120 09/29/16 18:30 10/29/16 18:29 Enalaprilat (Vasotec) 2.5 mg EVERY 6 HOURS PRN IV sbp more than 160 09/29/16 18:30 10/29/16 18:29 Furosemide (Lasix) 40 mg DAILY ORAL 09/30/16 09:00 10/30/16 08:59 10/02/16 09:03 Heparin Sodium (Porcine) (Heparin 5000 units/ml) 5,000 units EVERY 12 HOURS SUBQ 09/29/16 21:00 10/29/16 20:59 10/02/16 09:05 Metoprolol Tartrate (Lopressor) 25 mg Q12HR ORAL 09/30/16 21:00 10/30/16 20:59 10/02/16 09:04 Morphine Sulfate (Morphine Sulfate) 2 mg Q4H PRN IVP Severe Pain (Pain Scale 7-10) 09/29/16 18:30 10/06/16 18:29 09/30/16 20:57 Nitroglycerin (Ntg) 0.4 mg Q5MIN X 3 DOSES PRN SL Prn Chest Pain 09/29/16 18:45 10/29/16 18:44 Ondansetron HCl (Zofran) 4 mg Q6H PRN IVP Nausea & Vomiting 09/29/16 18:30 10/29/16 18:29 09/30/16 20:52 Pantoprazole (Protonix) 40 mg DAILY ORAL 09/30/16 09:00 10/30/16 08:59 10/02/16 09:03 Polyethylene Glycol (Miralax) 17 gm DAILYPRN PRN ORAL Constipation 09/29/16 18:30 10/29/16 18:29 Temazepam (Restoril) 15 mg HSPRN PRN ORAL Insomnia 09/29/16 21:00 10/06/16 20:59 CHANDLER MARIA October 02, 2016 14:12
[2016-10-03] MEDS ORDERED: METOPROLOL TART25 MG ORAL (12:54)
--- NOTE | 2016-10-03 13:00 | Discharge Summary ---
Discharge Summary Hospital Course Date of Admission September 29, 2016 at 15:12 Date of Discharge October 02, 2016 at 14:45 Admitting Diagnosis ACUTE CORONARY SYNDROME HPI Salvador Briones is a 60 year old male who was admitted on September 29, 2016 at 15:12 for Acute Coronary Syndrome Hospital Course dc summary #[id number] Discharge Medications New Medications: Metoprolol Tartrate* (Metoprolol Tartrate*) 25 Mg Tablet 25 MG ORAL EVERY 12 HOURS, #60 TAB Continued Medications: Amlodipine Besylate (Norvasc) 10 Mg Tab 10 MG ORAL DAILY, TAB Aspirin* (Aspir 81*) 81 Mg Tablet.dr 81 MG ORAL DAILY, TAB Clopidogrel Bisulfate* (Plavix*) 75 Mg Tablet 75 MG ORAL DAILY, TAB Furosemide* (Lasix*) 40 Mg Tablet 40 MG ORAL DAILY, TAB Ibuprofen* (Motrin*) 600 Mg Tablet 600 MG ORAL THREE TIMES A DAY, TAB 0 Refills Discharge Condition Upon Discharge: stable Discharge Disposition Patient was discharged to Home (01) Discharge Diagnoses: Discharge Instructions Discharge Instructions Special Instructions I have been assigned to complete a D/C Summary on this account. I was not involved in the patient management Linda Rodney NP (Vanchtein) October 03, 2016 12:59
--- NOTE | 2016-10-04 03:08 | Discharge Summary 2 SIG ---
DATE OF ADMISSION: 09/29/2016 DATE OF DISCHARGE: 10/02/2016 REASON FOR ADMISSION: A 60-year-old male with extensive coronary artery disease including history of VA x4 with subsequent stent placement and triple coronary artery bypass graft presented with chest pain for evaluation. The patient reported intermittent chest pain for the last few days. In the morning prior to arrival to the emergency room, it was severe, pressure-like, radiating to both shoulders. The patient quantified the pain as 9/10 on a scale 1 to 10. The patient had baby aspirin this morning. The patient also reported history of blood clots in the lungs. In the past, he was taking Plavix. The patient also is taking Lasix because he gets chronic swelling in his lower extremity. He denies any pain in his calves. No fever. No shortness of breath. No productive cough. No hemoptysis. No nausea. No vomiting. No diarrhea. No hematuria. No change in bowel movement. Workup in the emergency room subsequently involved CTA due to the history of PE. CTA was negative for PE or dissection. Urinalysis was consistent with UTI. The patient started on antibiotics. Urine tox screen was negative. EKG revealed bifascicular block, but normal sinus rhythm. No acute changes. Chest x-ray revealed no acute cardiopulmonary pathology. The patient admitted for further management. ADMITTING DIAGNOSES: 1. Chest pain, rule out acute coronary syndrome. 2. Urinary tract infection. 3. Hypertension. 4. Coronary artery disease. HOSPITAL COURSE: The patient admitted to telemetry floor. Cardiology consult was requested. Serial troponin x4 were negative. EKG revealed no acute ischemic changes. Curriculum Counselor ruled out the patient for acute VA. Curriculum Counselor added beta-francisco to keep blood pressure under control along with a calcium channel francisco to be continued. Continue aspirin and statin. Lipid panel is within normal limits. Continue Plavix as well. Echocardiogram revealed preserved ejection fraction of 55% to 60% and mild left ventricular hypertrophy and right ventricular systolic pressure of 28. According to automobile accessories installer, the patient had an extensive coronary artery disease history of VA, angioplasty, and CABG. His recent stress test showed only 3% reversible profusion defect, which was done in [facility]. According to automobile accessories installer, chest pain is atypical and should be considered other causes such as musculoskeletal origin. Curriculum Counselor cleared the patient for discharge. Pain was controlled likely related to musculoskeletal versus GI symptoms. The patient was cleared for discharge. DISCHARGE DIAGNOSES: 1. Atypical chest pain, likely of musculoskeletal origin. 2. Hypertension. 3. Coronary artery disease. 4. History of myocardial infarction x4 with angioplasty. 5. History of triple coronary artery bypass graft. 6. Hypercholesterolemia. Of note, urine culture was negative and antibiotic discontinued. DISCHARGE MEDICATIONS: See medication reconciliation list. DISCHARGE INSTRUCTIONS: The patient discharged home. Follow up with the primary medical doctor and automobile accessories installer. Soraya Bernabe M.D. I have been assigned to dictate discharge summary on this account and I was not involved in the patient's management. Linda Mamatteawan state hospital for the criminally insaneSusana N.PJuan DR: ERICH JOB#: [id number] CC:
== END 2016-10-02 14:45 | disposition home or self-care (01) | DRG 313 ==
LOC: ENRESERVDT → ENRESERVTM → EMR 14:48 → 2E 15:12 → EDBEDREQ 15:19
DX: R07.89 Other chest pain (principal); I25.2 Old myocardial infarction; N39.0 Urinary tract infection, site not specified; I10 Essential (primary) hypertension; I25.10 Atherosclerotic heart disease of native coronary artery without angina pectoris; E78.00 Pure hypercholesterolemia, unspecified; Z98.61 Coronary angioplasty status
CPT/HCPCS: 36415; 71010; 71275; 80053; 80061; 80300; 81003; 82550; 83880; 84443; 84484; 85025; 85610; 85730; 86140; 87086; 93005; 93306; 94664; 94760; J2405; J7620

== ENCOUNTER 2019-07-19 10:53 | Inpatient (IN) | payer MEDICARE, OTHER ==
[~2019-07-19] VITALS: Ht 188 cm; Wt 106.1 kg
[~2019-07-19 10:53] MED LIST changes: +ASPIR 8181 MG ORAL; +LASIX40 MG ORAL; +METOPROLOL TART25 MG ORAL; +PLAVIX75 MG ORAL; +UNOBMED
[2019-07-19 11:00] VITALS: BP 134/89
--- NOTE | 2019-07-19 11:00 | NUR ---
ED Nurse Note: Pt walked in from home c/o sternal chest pain that radiates to right side of chest and right arm 01/04 since 0700 this morning. Respirations even and unlabored on room air. Vitals stable as documented. Pt placed on monitor and resting in bed.
[2019-07-19] MEDS ORDERED: XARELTO10 MG ORAL (11:06)
[2019-07-19 11:27] LABS: BASOPHILS % (AUTO) 1.3 % (0.0-2.0); EOSINOPHILS % (AUTO) 1.1 % (0.0-3.0); HEMATOCRIT 41.5 % (42.0-52.0); HEMOGLOBIN 14.2 G/DL (14.2-18.0); LYMPHOCYTES % (AUTO) 22.3 % (20.0-45.0); MEAN CORPUSCULAR VOLUME 94 FL (80-99); MONOCYTES % (AUTO) 5.4 % (1.0-10.0); NEUTROPHILS % (AUTO) 69.9 % (45.0-75.0); PLATELET COUNT 166 K/UL (150-450); RED CELL DISTRIBUTION WIDTH 12.8 % (11.6-14.8); WHITE BLOOD COUNT 5.5 K/UL (4.8-10.8)
[2019-07-19 11:30] LABS: ANION GAP 14 mmol/L (5-15); BLOOD UREA NITROGEN 25 mg/dL (7-18); CALCIUM 9.1 MG/DL (8.5-10.1); CARBON DIOXIDE 21 MMOL/L (21-32); CHLORIDE 108 MMOL/L (98-107); CREATININE 1.4 MG/DL (0.55-1.30); SODIUM 143 MMOL/L (136-145)
[2019-07-19] MEDS ORDERED: Nitroglycerin Subl 0.4mg tab SL PRN ×2 (11:30→15:15)
[2019-07-19 11:44] LABS: ALANINE AMINOTRANSFERASE 30 U/L (12-78); ALBUMIN 3.8 G/DL (3.4-5.0); ALBUMIN/GLOBULIN RATIO 1.1 (1.0-2.7); ALKALINE PHOSPHATASE 77 U/L (46-116); ASPARTATE AMINO TRANSFERASE 18 U/L (15-37); BILIRUBIN,TOTAL 1.3 MG/DL (0.2-1.0)
--- NOTE | 2019-07-19 11:44 | NUR ---
ED Nurse Note: reported to dr. Melissa batista's troponin level od 0.117
[2019-07-19 11:46] LABS: BILIRUBIN,DIRECT 0.2 MG/DL (0.0-0.3)
--- NOTE | 2019-07-19 11:50 | Diagnostic Imaging Report ---
EXAM: XR Chest, 1 View CLINICAL HISTORY: CP TECHNIQUE: Frontal view of the chest. COMPARISON: None available FINDINGS: Hardware: None. Lungs/pleura: Elevation of the right hemidiaphragm. Bibasilar opacities likely represent atelectasis. No focal consolidation. Question small left pleural effusion. Heart/mediastinum: Median sternotomy and CABG changes. No cardiomegaly. Soft tissues: Unremarkable. Bones: No acute fracture. Degenerative changes of the acromioclavicular joints. Upper abdomen: Normal. IMPRESSION: Bibasilar opacities likely represent atelectasis. Question small left pleural effusion.
[2019-07-19] MEDS ORDERED: Morphine Sulfate 2mg/ml Inj(IV/IM USE ONLY) ONE (12:07)
[2019-07-19] MEDS ORDERED: Morphine Sulfate 2mg/ml Inj(IV/IM USE ONLY) IVP ONE (12:15)
--- NOTE | 2019-07-19 13:30 | NUR ---
ED Nurse Note: Report given to REYNA Bajwa on 2E
--- NOTE | 2019-07-19 13:40 | NUR ---
ED Nurse Note: Pt transferred safely to 2E on the monitor.
--- NOTE | 2019-07-19 13:45 | NUR ---
NURSE NOTES: Pt brought up from ER via [facility] awake/alert, breathing easily on room air, denies SOB but c/o 7/10 pain in his legs. Pt appears in no significant distress, able to easily ambulate to the bed. Vital signs stable with SR @ 62 on monitor. Lungs clear bilaterally, neck vein flat, trach midline. Abd soft/supple no rigidity/masses/guarding. Pt asking for food and phone, given. Bed left in low position, side rails u p x 2 and call light left near pt's hand. Addendum: 07/20/19 at 0741 by Rafiq Rothman RN IV access right forearm flushed with 10 ml NS and locked.
[2019-07-19 14:00] VITALS: BP 138/82
--- NOTE | 2019-07-19 14:02 | Emergency Room Report ---
History of Present Illness General Chief Complaint: Chest Pain Source: Medical Record Present Illness HPI 63-year-old male presents ED for chest pain. Started this morning. Left-sided , burning, 7 out of 10, nonradiating. Denies shortness of breath. Notes leg swelling. Notes history of hypertension. history of triple bypass. Denies smoking or drug use. No other aggravating relieving factors. Denies any other associated symptoms Allergies: Coded Allergies: No Known Allergies (Unverified , 03/21/14) Patient History Past Medical History: HTN, OK, CAD Pertinent Family History: none Social History: Denies: smoking, alcohol use, drug use Immunizations: UTD Reviewed Nursing Documentation: PMH: Agreed; PSxH: Agreed Nursing Documentation-PMH Past Medical History: No History, Except For Hx Cardiac Problems: Yes - OK 2009, 3 stents, triple bypass 2009, high cholesterol Hx Hypertension: Yes Hx Cancer: No Hx Gastrointestinal Problems: No Hx Neurological Problems: No Review of Systems All Other Systems: negative except mentioned in HPI Physical Exam Vital Signs Date Time Temp Pulse Resp B/P (MAP) Pulse Ox O2 Delivery O2 Flow Rate FiO2 07/19/19 10:53 97.9 82 18 133/87 (102) 99 Room Air Sp02 EP Interpretation: reviewed, normal General Appearance: no apparent distress, alert, GCS 15, non-toxic Head: normocephalic, atraumatic Eyes: bilateral eye normal inspection, bilateral eye PERRL ENT: hearing grossly normal, normal pharynx, no angioedema, normal voice Neck: full range of motion, supple/symm/no masses Respiratory: chest non-tender, lungs clear, normal breath sounds, speaking full sentences Cardiovascular #1: regular rate, rhythm, no edema Cardiovascular #2: 2+ carotid (R), 2+ carotid (L), 2+ radial (R), 2+ radial (L) , 2+ dorsalis pedis (R), 2+ dorsalis pedis (L) Gastrointestinal: normal bowel sounds, non tender, soft, non-distended, no guarding, no rebound Rectal: deferred Genitourinary: normal inspection, no CVA tenderness Musculoskeletal: back normal, normal range of motion, gait/station normal, non- tender Neurologic: alert, motor strength/tone normal, oriented x3, sensory intact, responsive, speech normal Psychiatric: judgement/insight normal, memory normal, mood/affect normal, no suicidal/homicidal ideation Reflexes: 3+ bicep (R), 3+ bicep (L), 3+ tricep (R), 3+ tricep (L), 3+ knee (R) , 3+ knee (L) Lymphatic: no adenopathy Medical Decision Making Diagnostic Impression: Primary Impression: ACS (acute coronary syndrome) ER Course Hospital Course 63-year-old male presents ED complaining of chest pain Differential diagnoses include: OK/unstable angina, contusion, muscle strain, PTX, rib fracture Clinical course Patient placed on stretcher. on cardiac monitor technician. After initial history and physical I ordered labs, EKG, chest x-ray, NITRO labs reviewed- no leukocytosis, hb/hct stable, electrolytes ok, trop 0.114, coags ok EKG - NSR, no acute ischemic changes interpeted by me Chest x-ray- sternotomy wires, atelectasis Did not improve after nitro. Given morphine. Case discussed with Dr. Arango and he agreed to accept the patient to his service for further care and support I. I feel this is a highly complex case requiring extensive working including EKG/Rhythm strip, Xray/CT/US, Blood/urine lab work, repeat exams while in ED, and administration of strong opiates/narcotics for pain control, admission to hospital or close patient follow up. Diagnosis - ACS admitted to telemetry in serious condition Labs Test 07/19/19 11:05 07/19/19 12:24 White Blood Count 5.5 K/UL (4.8-10.8) Red Blood Count 4.40 M/UL (4.70-6.10) Hemoglobin 14.2 G/DL (14.2-18.0) Hematocrit 41.5 % (42.0-52.0) Mean Corpuscular Volume 94 FL (80-99) Mean Corpuscular Hemoglobin 32.2 PG (27.0-31.0) Mean Corpuscular Hemoglobin Concent 34.1 G/DL (32.0-36.0) Red Cell Distribution Width 12.8 % (11.6-14.8) Platelet Count 166 K/UL (150-450) Mean Platelet Volume 8.5 FL (6.5-10.1) Neutrophils (%) (Auto) 69.9 % (45.0-75.0) Lymphocytes (%) (Auto) 22.3 % (20.0-45.0) Monocytes (%) (Auto) 5.4 % (1.0-10.0) Eosinophils (%) (Auto) 1.1 % (0.0-3.0) Basophils (%) (Auto) 1.3 % (0.0-2.0) Sodium Level 143 MMOL/L (136-145) Potassium Level 4.0 MMOL/L (3.5-5.1) Chloride Level 108 MMOL/L (98-107) Carbon Dioxide Level 21 MMOL/L (21-32) Anion Gap 14 mmol/L (5-15) Blood Urea Nitrogen 25 mg/dL (7-18) Creatinine 1.4 MG/DL (0.55-1.30) Estimat Glomerular Filtration Rate 51.0 mL/min (>60) Glucose Level 107 MG/DL (74-106) Calcium Level 9.1 MG/DL (8.5-10.1) Total Bilirubin 1.3 MG/DL (0.2-1.0) Direct Bilirubin 0.2 MG/DL (0.0-0.3) Aspartate Amino Transf (AST/SGOT) 18 U/L (15-37) Alanine Aminotransferase (ALT/SGPT) 30 U/L (12-78) Alkaline Phosphatase 77 U/L (46-116) Troponin I 0.117 ng/mL (0.000-0.056) Pro-B-Type Natriuretic Peptide 585 pg/mL (0-125) Total Protein 7.3 G/DL (6.4-8.2) Albumin 3.8 G/DL (3.4-5.0) Globulin 3.5 g/dL Albumin/Globulin Ratio 1.1 (1.0-2.7) Prothrombin Time 10.7 SEC (9.30-11.50) Prothromb Time International Ratio 1.0 (0.9-1.1) Activated Partial Thromboplast Time 26 SEC (23-33) EKG Diagnostic Results Rate: normal Rhythm: NSR ST Segments: no acute changes ASA given to the pt in ED: No - on xarelto Rhythm Strip Diag. Results EP Interpretation: yes Rhythm: NSR, no PVC's, no ectopy Chest X-Ray Diagnostic Results Chest X-Ray Diagnostic Results : Chest X-Ray Ordered: Yes # of Views/Limited/Complete: 1 View Indication: Chest Pain EP Interpretation: Yes Interpretation: no consolidation, no pneumothorax, no acute cardiopulmonary disease Impression: No acute disease Electronically Signed by: Electronically signed by Rod Smith MD Last Vital Signs Date Time Temp Pulse Resp B/P (MAP) Pulse Ox O2 Delivery O2 Flow Rate FiO2 07/19/19 11:00 97.9 79 18 134/89 99 Room Air Status: improved Disposition: ADMITTED INPATIENT Condition: Serious Referrals: NOT CHOSEN IPA/,REFERRING (PCP) Rod Smith MD Jul 19, 2019 14:02
[2019-07-19 16:00] VITALS: BP 138/85
[2019-07-19] MEDS ORDERED: Pneumococcal Vaccine 25mcg/0.5ml IM ONE (17:00)
--- NOTE | 2019-07-19 19:30 | NUR ---
Received patient awake, alert and oriented x4, no distress. Denies c/o chest discomfort.Continue to monitor pt.Bed at its lowest and locked. Sinus rhythm with PVCs on the monitor.
[2019-07-19 20:00] VITALS: BP 126/72
--- NOTE | 2019-07-19 20:45 | NUR ---
NURSE NOTES: Patient c/o pain in the feet from swelling, 12/04. Attempted to give tylenol. Patient refused. Contacted Dr. Arango requesting additional pain medications.
--- NOTE | 2019-07-19 21:50 | NUR ---
HAND-OFF: Report given to Abdi ORELLANA for ff-up of care.
[2019-07-20] VITALS: BP 139/80
[2019-07-20 04:00] VITALS: BP 148/99
--- NOTE | 2019-07-20 07:41 | NUR ---
NURSE NOTES: Pt breathing easily on room air, denies SOB but c/o 7/10 pain in his legs. Trace pitting edema in Bilat lower extrem. Pt appears in no significant distress. Vital signs stable with SR @ 68 on monitor. IV access flushed with 10 ml NS and locked. Lungs clear bilaterally, Bed left in low position, side rails u p x 2 and call light left near pt's hand.
[2019-07-20 08:00] VITALS: BP 120/69
[2019-07-20] MEDS ORDERED: Furosemide 40mg tab ORAL SCH ×2 (09:00→18:00)
[2019-07-20] MEDS: Aspirin EC 81mg tab ORAL SCH (09:12)
[2019-07-20] MEDS: Xarelto 10mg tab ORAL SCH (09:12)
[2019-07-20] MEDS: HYDROcodone/Acetamin 5/325 tab ORAL PRN ×2 (11:01→16:59)
[2019-07-20 12:00] VITALS: BP 125/76
--- NOTE | 2019-07-20 15:15 | History and Physical Report ---
DATE OF ADMISSION: 07/19/2019 HISTORY OF PRESENT ILLNESS: The patient is a 63-year-old male, came to the emergency room for having recurrent chest pain, radiating to the left arm and the patient has had no fever, no chills, no palpitation. The patient also had complicated course of having multiple DVT and PE, had multiple surgeries on the knee and the patient also complained a lot of pain on the right knee. PAST MEDICAL HISTORY: Significant for history of chronic DVT, hypertension, coronary artery disease. MEDICATION: Xarelto. PHYSICAL EXAMINATION: GENERAL: This is an elderly overweight male, who is currently awake, comfortable. VITAL SIGNS: Blood pressure is 130/70, pulse 74, respirations 18. SKIN: Good skin turgor HEENT: NAD. CHEST: Bilateral few crackles. CARDIOVASCULAR: rhythm. ABDOMEN: Soft. Positive bowel sounds. EXTREMITIES: Has 1+ edema. Mild diffuse calf tenderness on the right leg. GENITOURINARY: Deferred. LABORATORY DATA: Troponins are positive. BNP was 500. ASSESSMENT AND PLAN: 1. Acute coronary syndrome. 2. CHF. 3. Hypertension. 4. History of DVT. 5. History of PE. 6. Status post ORIF. We will admit on a telemetry bed, rule out of AK. Consider Cardiology consult. Check 2D echo and continue current medical treatment. Continue Xarelto. Also consider Hematology/Oncology consult. Navneet Arango M.D. DR: OMERO JOB#: [id number] CC:
[2019-07-20 16:00] VITALS: BP 123/72
[2019-07-20] MEDS: Cyclobenzaprine 10mg Tab ORAL SCH (17:59)
--- NOTE | 2019-07-20 19:15 | NUR ---
NURSE NOTES: Received report from Garett An RN. Pt in bed, awake, SR, VS wnl, denies pain. A&O x 3, will continue to monitor closely.
[2019-07-20 20:00] VITALS: BP 131/80
[2019-07-21] VITALS: BP 137/80
[2019-07-21 04:00] VITALS: BP 144/87
[2019-07-21] MEDS: HYDROcodone/Acetamin 5/325 tab ORAL PRN (06:33)
--- NOTE | 2019-07-21 07:32 | NUR ---
HAND-OFF: Report given to Rochelle Carlton RN. Pt in stable condition.
--- NOTE | 2019-07-21 07:55 | Cardiac Electrophysiology PN ---
Subjective Subjective [id number] Objective Last 24 Hour Vital Signs Date Time Temp Pulse Resp B/P (MAP) Pulse Ox O2 Delivery O2 Flow Rate FiO2 07/21/19 04:00 98.6 63 18 144/87 (106) 95 07/21/19 04:00 54 07/21/19 00:00 98.4 53 18 137/80 (99) 95 07/21/19 00:00 53 07/20/19 22:06 60 131/80 07/20/19 21:00 Room Air 07/20/19 20:00 56 07/20/19 20:00 98.6 56 20 131/80 (97) 95 07/20/19 16:00 74 07/20/19 16:00 97.9 70 20 123/72 (89) 95 07/20/19 12:00 61 07/20/19 12:00 97.7 66 20 125/76 (92) 97 72 07/20/19 09:12 73 120/69 07/20/19 09:12 73 120/69 07/20/19 08:27 Room Air 07/20/19 08:00 73 07/20/19 08:00 97.6 68 20 120/69 (86) 96 Intake and Output 07/20/19 07/21/19 19:00 07:00 # Voids 4 3 Odell Lehman MD Jul 21, 2019 07:55
--- NOTE | 2019-07-21 08:00 | NUR ---
NURSE NOTES: Dr. Lehman at bedside. New orders noted and will be carried out.
[2019-07-21 08:35] VITALS: BP 146/86
--- NOTE | 2019-07-21 08:36 | NUR ---
NURSE NOTES: Report received from Kaylee ORELLANA. Patient is observed in bed, awake, alert, oriented, and able to make needs known. Respiratory even and unlabored. Patient denies discomfort or chest pain at this time. IV site is asymptomatic, patent, and intact. Bed is in lowest position with side rails up x2 and brakes are engaged. Encouraged patient to use call light when in need of assistance, pt verbalized understanding. Will continue to monitor.
--- NOTE | 2019-07-21 08:53 | Consultation ---
History of Present Illness General Chief Complaint: Chest Pain Present Illness Allergies: Coded Allergies: No Known Allergies (Unverified , 03/21/14) Medication History Scheduled Amlodipine Besylate (Norvasc), 10 MG ORAL DAILY, (Reported) Aspirin* (Aspir 81*), 81 MG ORAL DAILY, (Reported) Furosemide* (Lasix*), 40 MG ORAL DAILY, (Reported) Metoprolol Tartrate* (Metoprolol Tartrate*), 25 MG ORAL EVERY 12 HOURS Rivaroxaban (Xarelto*), 20 MG ORAL DAILY, (Reported) Discontinued Medications Amlodipine Besylate (Norvasc), 10 MG ORAL DAILY, (Reported) Discontinued Reason: Therapy completed Clopidogrel Bisulfate* (Plavix*), 75 MG ORAL DAILY, (Reported) Discontinued Reason: MD discontinued med Ibuprofen* (Motrin*), 600 MG ORAL THREE TIMES A DAY, (Reported) Discontinued Reason: Therapy completed Patient History Healthcare decision maker Resuscitation status Full Code Advanced Directive on File Physical Exam Last 24 Hour Vital Signs Date Time Temp Pulse Resp B/P (MAP) Pulse Ox O2 Delivery O2 Flow Rate FiO2 07/21/19 08:35 96.8 57 18 146/86 (106) 94 07/21/19 04:00 98.6 63 18 144/87 (106) 95 07/21/19 04:00 54 07/21/19 00:00 98.4 53 18 137/80 (99) 95 07/21/19 00:00 53 07/20/19 22:06 60 131/80 07/20/19 21:00 Room Air 07/20/19 20:00 56 07/20/19 20:00 98.6 56 20 131/80 (97) 95 07/20/19 16:00 74 07/20/19 16:00 97.9 70 20 123/72 (89) 95 07/20/19 12:00 61 07/20/19 12:00 97.7 66 20 125/76 (92) 97 72 07/20/19 09:12 73 120/69 07/20/19 09:12 73 120/69 Intake and Output 07/20/19 07/21/19 19:00 07:00 # Voids 4 3 Height (Feet): 6 Height (Inches): 2.00 Weight (Pounds): 225 Medications Current Medications Medications (Trade) Dose Ordered Sig/Hal Route PRN Reason Start Time Stop Time Status Last Admin Dose Admin Acetaminophen (Tylenol) 650 mg Q4H PRN ORAL Mild Pain/Temp > 100.5 07/19/19 15:15 08/18/19 15:14 Acetaminophen/ Hydrocodone Bitart ([place] 5/325) 1 tab Q6H PRN ORAL pain 4-10 07/20/19 10:15 07/27/19 10:14 07/21/19 06:33 Amlodipine Besylate (Norvasc) 10 mg DAILY ORAL 07/20/19 09:00 08/19/19 08:59 07/20/19 09:12 Aspirin (Ecotrin) 81 mg DAILY ORAL 07/20/19 09:00 08/19/19 08:59 07/20/19 09:12 Atorvastatin Calcium (Lipitor) 80 mg BEDTIME ORAL 07/21/19 21:00 08/20/19 20:59 Clopidogrel Bisulfate (Plavix) 75 mg DAILY ORAL 07/21/19 09:00 08/20/19 08:59 Cyclobenzaprine HCl (Flexeril) 10 mg BID ORAL 07/20/19 18:00 08/19/19 17:59 07/20/19 17:59 Furosemide (Lasix) 40 mg DAILY ORAL 07/21/19 09:00 08/19/19 08:59 Isosorbide Mononitrate (Imdur) 30 mg DAILY ORAL 07/21/19 09:00 08/20/19 08:59 Metoprolol Tartrate (Lopressor) 25 mg EVERY 12 HOURS ORAL 07/19/19 21:00 08/18/19 20:59 07/20/19 22:06 Nitroglycerin (Ntg) 0.4 mg Q5M PRN SL Prn Chest Pain 07/19/19 15:15 08/18/19 15:14 Rivaroxaban (Xarelto) 20 mg DAILY ORAL 07/20/19 09:00 08/19/19 08:59 07/20/19 09:12 Assessment/Plan Assessment/Plan: Hematology Consultation REQ : Navneet Arango RFC: DVT and anemia DOS: 07/21/19 ID 63-year-old male presents ED for chest pain. Started this morning. Left-sided , burning, 7 out of 10, nonradiating. Denies shortness of breath. Notes leg swelling. Notes history of hypertension. history of triple bypass. Denies smoking or drug use. No other aggravating relieving factors. Denies any other associated symptoms, labs have been reviewed, has a hx of dvt lower ext bilaterally, and heme consulted, with hx of xarelto, he is taking chronically Allergies: No Known Allergies (Unverified , 03/21/14) Patient History Past Medical History: HTN, ND, CAD Pertinent Family History: none Social History: Denies: smoking, alcohol use, drug use Immunizations: UTD Reviewed Nursing Documentation: PMH: Agreed; PSxH: Agreed Nursing Documentation-PMH Past Medical History: No History, Except For Hx Cardiac Problems: Yes - ND 2010, 3 stents, triple bypass 2009, high cholesterol Hx Hypertension: Yes Hx Cancer: No Hx Gastrointestinal Problems: No Hx Neurological Problems: No Review of Systems All Other Systems: negative except mentioned in HPI PE Vitals: noted General: no apparent distress, alert Head: normocephalic, atraumatic HEENT: at, ac Neck: supple Resp: chest non-tender, lungs clear, normal breath sounds Cardiovascular: regular rate, rhythm, no edema GI: normal bowel sounds, non tender, soft, non-distended, no guarding, no rebound Gu: normal inspection, no CVA tenderness Musculoskeletal: back normal, normal range of motion Neuro: alert, motor strength/tone normal, oriented x3 Lymphatic: no adenopathy Labs: noted Imaging: reviewed Assessment and Recs: # Bilateral DVt s/p ivc filter placement has been on xarelto --> continue on xarelto at this time, will need this medication lifelong --> no evidence of bleeding at this time is ntoed --> also hx of cardiomyopathy with 4 stents per patient, Dr. Lehman recs noted --> further age appropriate cancer screening # ACS (acute coronary syndrome) --> r/o cardiac condition --> as per cards recs --> hx of stent placement, open heart surgery # Juan - with elev cr --> on ivf and as per renal --> trend cr as needed # Hyperbilirubinemia --> elev total bili and ind bili --> as per gi # Sternotomy wires, atelectasis John Rn and appreciate consultation Tony Santos MD Jul 21, 2019 08:53
[2019-07-21] MEDS: Cyclobenzaprine 10mg Tab ORAL SCH ×2 (10:14→17:52)
[2019-07-21] MEDS: Aspirin EC 81mg tab ORAL SCH (10:14)
[2019-07-21] MEDS: Imdur 30mg tab ORAL SCH (10:14)
[2019-07-21] MEDS: Furosemide 40mg tab ORAL SCH (10:14)
[2019-07-21] MEDS: Xarelto 10mg tab ORAL SCH (10:15)
--- NOTE | 2019-07-21 10:19 | NUR ---
NURSE NOTES: Patient requested the door to be closed and refused bed alarm. Educated patient the side effect of antihypertensive medications such as dizziness and risk for fall, patient verbalized understanding.
[2019-07-21 11:02] LABS: BASOPHILS % (AUTO) 1.4 % (0.0-2.0); EOSINOPHILS % (AUTO) 3.1 % (0.0-3.0); HEMATOCRIT 40.5 % (42.0-52.0); HEMOGLOBIN 14.3 G/DL (14.2-18.0); LYMPHOCYTES % (AUTO) 26.2 % (20.0-45.0); MEAN CORPUSCULAR VOLUME 93 FL (80-99); MONOCYTES % (AUTO) 6.3 % (1.0-10.0); NEUTROPHILS % (AUTO) 63.1 % (45.0-75.0); PLATELET COUNT 158 K/UL (150-450); RED BLOOD COUNT 4.35 M/UL (4.70-6.10); RED CELL DISTRIBUTION WIDTH 13.5 % (11.6-14.8); WHITE BLOOD COUNT 5.8 K/UL (4.8-10.8)
[2019-07-21 11:13] LABS: ANION GAP 4 mmol/L (5-15); BLOOD UREA NITROGEN 24 mg/dL (7-18); CALCIUM 9.2 MG/DL (8.5-10.1); CARBON DIOXIDE 31 MMOL/L (21-32); CHLORIDE 105 MMOL/L (98-107); CREATININE 1.2 MG/DL (0.55-1.30); POTASSIUM 4.1 MMOL/L (3.5-5.1); SODIUM 140 MMOL/L (136-145)
[2019-07-21 11:39] VITALS: BP 133/82
--- NOTE | 2019-07-21 12:15 | Consultation ---
DATE OF CONSULTATION: 07/21/2019 CARDIOLOGY CONSULTATION CONSULTING PHYSICIAN: Odell Lehman M.D. REFERRING PHYSICIAN: Navneet Arango M.D. REASON FOR CONSULTATION: Non-ST elevation myocardial infarction in a patient with history of coronary artery bypass graft. HISTORY OF PRESENT ILLNESS: The patient is a very pleasant 63-year-old gentleman with history of hypertension and coronary artery disease with history of coronary artery bypass graft in 2010 and prior HI as well as history of three stents. He has had most recent stents at [facility] two years ago. The patient also has history of multiple DVTs after his bilateral knee surgery at [facility]. The patient has been on Xarelto for that and has undergone IVC filter. The patient also has history of multiple abdominal surgeries for diverticulitis. The patient was admitted and a Cardiology consultation was requested when he presented with left-sided 7/10 chest pain. His troponin was also elevated. REVIEW OF SYSTEMS: Review of systems was thoroughly performed and was negative other than what was mentioned in the history of present illness. PAST MEDICAL HISTORY: As mentioned above. FAMILY HISTORY: Noncontributory. SOCIAL HISTORY: He lives at home. Does not smoke or drink alcohol. PHYSICAL EXAMINATION: VITAL SIGNS: Blood pressure 144/87, pulse is 54, respirations 18, and he is afebrile. HEAD AND NECK: Showed no JVD or carotid bruits. LUNGS: Clear. CARDIOVASCULAR: Shows regular S1 and S2 with no gallop or murmur. Sternotomy scar is intact. ABDOMEN: Soft, status post multiple surgeries. EXTREMITIES: No pitting edema. LABORATORY AND DIAGNOSTIC DATA: His labs show sodium 142, potassium 4.0, BUN of 25, creatinine 1.4, and glucose of 107. His BNP is 585. His troponin is 0.117 and 0.099. His white count of 5.5, hemoglobin is 14.2, hematocrit 41.5, platelet count 166. His INR is 1. ASSESSMENT AND PLAN: 1. Non-ST elevation myocardial infarction with chest pain and elevated troponin in the patient with history of coronary artery bypass graft and multiple stents. His EKG does not show any ST elevation, actually show sinus rhythm with left anterior fascicular block and mild LVH. We will treat the patient medically at this time with aspirin 81 mg daily and metoprolol 25 mg b.i.d. and add Lipitor to his medical regimen. We will try to transfer the patient to [facility] for cardiac catheterization and coronary intervention. In the meantime, we will repeat cardiac enzymes and add Imdur to his medical regimen. His echocardiogram also showed EF of 55% to 60% with no pericardial effusion. 2. History of recurrent DVT, status post IVC filter, add Xarelto 20 mg daily. 3. Hypertension on metoprolol 25 b.i.d., Norvasc 10 mg daily. I will change the Lasix to 40 mg p.o. daily. 4. History of multiple abdominal surgeries. Admit and we will try to get the records from [facility]. It is of note the patient states that his coronary artery bypass graft was done in the hospital in [place], but does not remember which. Thank you very much, Dr. Arango for allowing me to participate in the care of this patient. Please do not hesitate to contact me for any questions regarding my evaluation. Odell Lehman M.D. DR: XIAO JOB#: [id number] CC:
[2019-07-21 16:00] VITALS: BP 117/75
--- NOTE | 2019-07-21 16:30 | Progress Note ---
DATE: 07/21/2019 SUBJECTIVE: The patient is a 63-year-old male who came with acute coronary syndrome, hypertension, hyperlipidemia, DVT. The patient is doing better. Cardiology on consult. OBJECTIVE: VITAL SIGNS: Stable. CHEST: Bilaterally clear. CARDIOVASCULAR: Regular rhythm. ABDOMEN: Soft. EXTREMITIES: CCE. Mild tenderness of left leg. ASSESSMENT: 1. Acute coronary syndrome. 2. Hypertension. 3. DVT. 4. Hyperlipidemia. PLAN: 1. Continue current treatment. 2. Cardiac workup is in progress. 3. Dr. Lehman is on the consult. 4. A 2 gram sodium diet. 5. Continue Xarelto. Navneet Arango M.D. DR: Megan JOB#: [id number] CC:
--- NOTE | 2019-07-21 19:30 | NUR ---
HAND-OFF: Report given to Kevin RN. Patient is in stable condition. Endorsed plan of care.
[2019-07-21 20:00] VITALS: BP 116/83
[2019-07-21] MEDS: Atorvastatin 80mg tab ORAL SCH (22:48)
[2019-07-22] VITALS: BP 133/75
[2019-07-22] MEDS: HYDROcodone/Acetamin 5/325 tab ORAL PRN ×2 (03:32→12:42)
[2019-07-22 04:00] VITALS: BP 131/77
[2019-07-22 05:04] LABS: ANION GAP 8 mmol/L (5-15); BLOOD UREA NITROGEN 26 mg/dL (7-18); CALCIUM 8.9 MG/DL (8.5-10.1); CARBON DIOXIDE 30 MMOL/L (21-32); CHLORIDE 109 MMOL/L (98-107); CREATININE 1.4 MG/DL (0.55-1.30); POTASSIUM 4.1 MMOL/L (3.5-5.1); SODIUM 147 MMOL/L (136-145)
[2019-07-22 05:18] LABS: BASOPHILS % (AUTO) 1.6 % (0.0-2.0); EOSINOPHILS % (AUTO) 6.3 % (0.0-3.0); HEMATOCRIT 40.4 % (42.0-52.0); HEMOGLOBIN 13.3 G/DL (14.2-18.0); LYMPHOCYTES % (AUTO) 37.4 % (20.0-45.0); MEAN CORPUSCULAR VOLUME 96 FL (80-99); MONOCYTES % (AUTO) 8.4 % (1.0-10.0); NEUTROPHILS % (AUTO) 46.4 % (45.0-75.0); PLATELET COUNT 205 K/UL (150-450); RED BLOOD COUNT 4.23 M/UL (4.70-6.10); RED CELL DISTRIBUTION WIDTH 15.6 % (11.6-14.8)
[2019-07-22 08:03] VITALS: BP 146/95
--- NOTE | 2019-07-22 08:21 | NUR ---
NURSE NOTES: received patient up and ambulate, no c/o pain, not in distress.
[2019-07-22] MEDS: Furosemide 40mg tab ORAL SCH (08:59)
[2019-07-22] MEDS: Imdur 30mg tab ORAL SCH (08:59)
[2019-07-22] MEDS: Cyclobenzaprine 10mg Tab ORAL SCH ×2 (08:59→18:03)
[2019-07-22] MEDS: Aspirin EC 81mg tab ORAL SCH (08:59)
[2019-07-22] MEDS: Xarelto 10mg tab ORAL SCH (09:03)
--- NOTE | 2019-07-22 09:30 | NUR ---
NURSE NOTES: Received pt from CN FE, Pt is awake and alert, pt is in RA, no SOB or acute respiratory distress noted. pt has intact iv access RFA 20G SL. Pt is on continues heart monitoring. all needs attended, bed is locked and is in the lowest position, call light within easy reach. will continue to monitor.
--- NOTE | 2019-07-22 11:47 | Cardiac Electrophysiology PN ---
Assessment/Plan Assessment/Plan 1. Non-ST elevation myocardial infarction with chest pain and elevated troponin in the patient with history of coronary artery bypass graft in [place] in 2014 and multiple stents. His EKG does not show any ST elevation, actually show sinus rhythm with left anterior fascicular block and mild LVH. We will treat the patient medically at this time with aspirin 81 mg daily and metoprolol 25 mg b.i.d. and Lipitor. Stress test at [facility] 12/2018 showed only small to mediaum partially reversible defect in inferolateral wall. His echocardiogram also showed EF of 55% to 60% with no pericardial effusion. Will repeat stress test and if significant ischemia, will transfer for cardiac cath. 2. History of recurrent DVT, status post IVC filter and Xarelto 20 mg daily. 3. Hypertension on metoprolol 25 b.i.d., Norvasc 10 mg daily and Lasix to 40 mg p.o. daily. 4. History of multiple abdominal surgeries. Subjective Subjective No SOB. Only 2/10 CP. Records from [facility] from 2017 reviewed Objective Last 24 Hour Vital Signs Date Time Temp Pulse Resp B/P (MAP) Pulse Ox O2 Delivery O2 Flow Rate FiO2 07/22/19 09:09 Room Air 07/22/19 08:59 146/95 07/22/19 08:59 58 146/95 07/22/19 08:58 58 146/95 07/22/19 08:03 96.3 58 20 146/95 (112) 96 07/22/19 08:00 91 07/22/19 04:00 53 07/22/19 04:00 97.5 63 20 131/77 (95) 97 07/22/19 00:00 53 07/22/19 00:00 97.3 53 20 133/75 (94) 94 07/21/19 22:48 94 116/83 07/21/19 21:00 Room Air 07/21/19 20:00 98.1 90 20 116/83 (94) 95 07/21/19 20:00 90 07/21/19 16:00 97.7 65 20 117/75 (89) 95 07/21/19 15:20 70 Intake and Output 07/21/19 07/22/19 19:00 07:00 Intake Total 840 ml Balance 840 ml Intake Oral 840 ml # Voids 3 4 # Bowel Movements 1 Laboratory Tests Test 07/21/19 16:40 07/22/19 03:00 Troponin I 0.101 ng/mL (0.000-0.056) 0.086 ng/mL (0.000-0.056) White Blood Count 4.0 K/UL (4.8-10.8) L Red Blood Count 4.23 M/UL (4.70-6.10) L Hemoglobin 13.3 G/DL (14.2-18.0) L Hematocrit 40.4 % (42.0-52.0) L Mean Corpuscular Volume 96 FL (80-99) Mean Corpuscular Hemoglobin 31.4 PG (27.0-31.0) H Mean Corpuscular Hemoglobin Concent 32.8 G/DL (32.0-36.0) Red Cell Distribution Width 15.6 % (11.6-14.8) H Platelet Count 205 K/UL (150-450) Mean Platelet Volume 10.8 FL (6.5-10.1) H Neutrophils (%) (Auto) 46.4 % (45.0-75.0) Lymphocytes (%) (Auto) 37.4 % (20.0-45.0) Monocytes (%) (Auto) 8.4 % (1.0-10.0) Eosinophils (%) (Auto) 6.3 % (0.0-3.0) H Basophils (%) (Auto) 1.6 % (0.0-2.0) Sodium Level 147 MMOL/L (136-145) H Potassium Level 4.1 MMOL/L (3.5-5.1) Chloride Level 109 MMOL/L (98-107) H Carbon Dioxide Level 30 MMOL/L (21-32) Anion Gap 8 mmol/L (5-15) Blood Urea Nitrogen 26 mg/dL (7-18) H Creatinine 1.4 MG/DL (0.55-1.30) H Estimat Glomerular Filtration Rate 51.0 mL/min (>60) Glucose Level 99 MG/DL (74-106) Calcium Level 8.9 MG/DL (8.5-10.1) Pro-B-Type Natriuretic Peptide 353 pg/mL (0-125) H Objective HEAD AND NECK: Showed no JVD or carotid bruits. LUNGS: Clear. CARDIOVASCULAR: Shows regular S1 and S2 with no gallop or murmur. Sternotomy scar is intact. ABDOMEN: Soft, status post multiple surgeries. EXTREMITIES: No pitting edema. Odell Lehman MD Jul 22, 2019 11:46
[2019-07-22 12:00] VITALS: BP 126/65
[2019-07-22] MEDS ORDERED: Lexiscan 0.4mg/5ml syringe IV PRN (12:00)
--- NOTE | 2019-07-22 12:40 | NUR ---
NURSE NOTES: pt has pain and swollen bi feet, Dr MARX notified and ordered lora duplex, noted and carried out. will continue to monitor.
[2019-07-22 16:00] VITALS: BP 112/62
--- NOTE | 2019-07-22 16:02 | Diagnostic Imaging Report ---
Indication:Leg pain and swelling Technique: Grayscale and duplex Doppler imaging of the veins in both lower extremities performed in real time utilizing compression and augmentation. Comparison: None Findings: Duplex Doppler interrogation of the veins in both lower extremity is performed from the common femoral vein to the popliteal vein. There is a small focus of nonocclusive thrombus likely chronic within the right SFV. No acute thrombosis identified. Normal venous compressibility demonstrated throughout otherwise. Waveform analysis shows good respiratory phasicity and augmentation. IMPRESSION: Suggestion of mild nonocclusive chronic DVT in the right SFV No evidence of acute deep venous thrombosis involving the lower extremities.
--- NOTE | 2019-07-22 17:25 | Hematology/Onc Progress Note ---
Assessment/Plan Assessment/Plan Assessment and Recs: # Bilateral DVt s/p ivc filter placement has been on xarelto --> continue on xarelto at this time, will need this medication lifelong --> no evidence of bleeding at this time is ntoed --> also hx of cardiomyopathy with 4 stents per patient, Dr. Fallon queen noted --> further age appropriate cancer screening --> 07/22 ve duplex: Suggestion of mild nonocclusive chronic DVT in the right SFV. No evidence of acute deep venous thrombosis involving the lower extremities. # ACS (acute coronary syndrome) --> r/o cardiac condition --> as per cards recs --> hx of stent placement, open heart surgery --> on plavix # Juan - with elev cr --> on ivf and as per renal --> trend cr as needed # Hyperbilirubinemia --> elev total bili and ind bili --> as per gi # Sternotomy wires, atelectasis Dw Rn and appreciate consultation Subjective Allergies: Coded Allergies: No Known Allergies (Unverified , 03/21/14) Subjective 07/22: awake and alert, no overnight events, no sob, reggie duplex reviewed, Objective Objective Current Medications Medications (Trade) Dose Ordered Sig/Hal Route PRN Reason Start Time Stop Time Status Last Admin Dose Admin Acetaminophen (Tylenol) 650 mg Q4H PRN ORAL Mild Pain/Temp > 100.5 07/19/19 15:15 08/18/19 15:14 Acetaminophen/ Hydrocodone Bitart ([place] 5/325) 1 tab Q6H PRN ORAL pain 4-10 07/20/19 10:15 07/27/19 10:14 07/22/19 12:42 Amlodipine Besylate (Norvasc) 10 mg DAILY ORAL 07/20/19 09:00 08/19/19 08:59 07/22/19 08:58 Aspirin (Ecotrin) 81 mg DAILY ORAL 07/20/19 09:00 08/19/19 08:59 07/22/19 08:59 Atorvastatin Calcium (Lipitor) 80 mg BEDTIME ORAL 07/21/19 21:00 08/20/19 20:59 07/21/19 22:48 Clopidogrel Bisulfate (Plavix) 75 mg DAILY ORAL 07/21/19 09:00 08/20/19 08:59 07/22/19 08:58 Cyclobenzaprine HCl (Flexeril) 10 mg BID ORAL 07/20/19 18:00 08/19/19 17:59 07/22/19 08:59 Furosemide (Lasix) 40 mg DAILY ORAL 07/21/19 09:00 08/19/19 08:59 07/22/19 08:59 Isosorbide Mononitrate (Imdur) 30 mg DAILY ORAL 07/21/19 09:00 08/20/19 08:59 07/22/19 08:59 Metoprolol Tartrate (Lopressor) 25 mg EVERY 12 HOURS ORAL 07/19/19 21:00 08/18/19 20:59 07/22/19 08:59 Nitroglycerin (Ntg) 0.4 mg Q5M PRN SL Prn Chest Pain 07/19/19 15:15 08/18/19 15:14 Regadenoson (Lexiscan) 0.4 mg ONCE PRN IV STRESS TEST 07/22/19 12:00 07/24/19 23:59 Rivaroxaban (Xarelto) 20 mg DAILY ORAL 07/20/19 09:00 08/19/19 08:59 07/22/19 09:03 Last 24 Hour Vital Signs Date Time Temp Pulse Resp B/P (MAP) Pulse Ox O2 Delivery O2 Flow Rate FiO2 07/22/19 16:00 97.7 56 20 112/62 (79) 100 07/22/19 15:45 70 07/22/19 12:00 98.1 56 20 126/65 (85) 100 07/22/19 11:53 58 07/22/19 09:09 Room Air 07/22/19 08:59 146/95 07/22/19 08:59 58 146/95 07/22/19 08:58 58 146/95 07/22/19 08:03 96.3 58 20 146/95 (112) 96 07/22/19 08:00 91 07/22/19 04:00 53 07/22/19 04:00 97.5 63 20 131/77 (95) 97 07/22/19 00:00 53 07/22/19 00:00 97.3 53 20 133/75 (94) 94 07/21/19 22:48 94 116/83 07/21/19 21:00 Room Air 07/21/19 20:00 98.1 90 20 116/83 (94) 95 07/21/19 20:00 90 07/21/19 16:00 97.7 65 20 117/75 (89) 95 07/21/19 15:20 70 07/21/19 11:39 97.7 54 20 133/82 (99) 95 07/21/19 11:30 83 07/21/19 10:15 53 146/86 07/21/19 10:14 146/86 07/21/19 10:14 57 146/86 07/21/19 09:00 Room Air 07/21/19 08:35 96.8 57 18 146/86 (106) 94 07/21/19 07:36 54 07/21/19 04:00 98.6 63 18 144/87 (106) 95 07/21/19 04:00 54 07/21/19 00:00 98.4 53 18 137/80 (99) 95 07/21/19 00:00 53 07/20/19 22:06 60 131/80 07/20/19 21:00 Room Air 07/20/19 20:00 56 07/20/19 20:00 98.6 56 20 131/80 (97) 95 Intake and Output 07/21/19 07/22/19 19:00 07:00 Intake Total 840 ml Balance 840 ml Intake Oral 840 ml # Voids 3 4 # Bowel Movements 1 Labs Test 07/20/19 07:36 07/21/19 10:55 07/21/19 16:40 07/22/19 03:00 Troponin I 0.099 ng/mL (0.000-0.056) 0.083 ng/mL (0.000-0.056) 0.101 ng/mL (0.000-0.056) 0.086 ng/mL (0.000-0.056) White Blood Count 5.8 K/UL (4.8-10.8) 4.0 K/UL (4.8-10.8) Red Blood Count 4.35 M/UL (4.70-6.10) 4.23 M/UL (4.70-6.10) Hemoglobin 14.3 G/DL (14.2-18.0) 13.3 G/DL (14.2-18.0) Hematocrit 40.5 % (42.0-52.0) 40.4 % (42.0-52.0) Mean Corpuscular Volume 93 FL (80-99) 96 FL (80-99) Mean Corpuscular Hemoglobin 32.8 PG (27.0-31.0) 31.4 PG (27.0-31.0) Mean Corpuscular Hemoglobin Concent 35.2 G/DL (32.0-36.0) 32.8 G/DL (32.0-36.0) Red Cell Distribution Width 13.5 % (11.6-14.8) 15.6 % (11.6-14.8) Platelet Count 158 K/UL (150-450) 205 K/UL (150-450) Mean Platelet Volume 8.6 FL (6.5-10.1) 10.8 FL (6.5-10.1) Neutrophils (%) (Auto) 63.1 % (45.0-75.0) 46.4 % (45.0-75.0) Lymphocytes (%) (Auto) 26.2 % (20.0-45.0) 37.4 % (20.0-45.0) Monocytes (%) (Auto) 6.3 % (1.0-10.0) 8.4 % (1.0-10.0) Eosinophils (%) (Auto) 3.1 % (0.0-3.0) 6.3 % (0.0-3.0) Basophils (%) (Auto) 1.4 % (0.0-2.0) 1.6 % (0.0-2.0) Sodium Level 140 MMOL/L (136-145) 147 MMOL/L (136-145) Potassium Level 4.1 MMOL/L (3.5-5.1) 4.1 MMOL/L (3.5-5.1) Chloride Level 105 MMOL/L (98-107) 109 MMOL/L (98-107) Carbon Dioxide Level 31 MMOL/L (21-32) 30 MMOL/L (21-32) Anion Gap 4 mmol/L (5-15) 8 mmol/L (5-15) Blood Urea Nitrogen 24 mg/dL (7-18) 26 mg/dL (7-18) Creatinine 1.2 MG/DL (0.55-1.30) 1.4 MG/DL (0.55-1.30) Estimat Glomerular Filtration Rate > 60 mL/min (>60) 51.0 mL/min (>60) Glucose Level 105 MG/DL (74-106) 99 MG/DL (74-106) Calcium Level 9.2 MG/DL (8.5-10.1) 8.9 MG/DL (8.5-10.1) Pro-B-Type Natriuretic Peptide 642 pg/mL (0-125) 353 pg/mL (0-125) Height (Feet): 6 Height (Inches): 2.00 Weight (Pounds): 225 Objective PE Vitals: noted General: no apparent distress, alert Head: normocephalic, atraumatic HEENT: at, ac Neck: supple Resp: chest non-tender, lungs clear, normal breath sounds Cardiovascular: regular rate, rhythm, no edema GI: normal bowel sounds, non tender, soft, non-distended, no guarding, no rebound Gu: normal inspection, no CVA tenderness Musculoskeletal: back normal, normal range of motion Neuro: alert, motor strength/tone normal, oriented x3 Lymphatic: no adenopathy Tony Santos MD Jul 22, 2019 17:25
--- NOTE | 2019-07-22 17:30 | Progress Note ---
DATE: 07/22/2019 SUBJECTIVE: This is a 63-year-old male came to the emergency room for having recurrent chest pain, palpitation, and short of breath. So far, his troponins are negative. The patient is going for stress test tomorrow. He is also complaining back pain and leg pain. PHYSICAL EXAMINATION: VITAL SIGNS: Blood pressure is 126/65, pulse 56, respirations 20, temperature 98.1. HEENT: NAD. CHEST: Bilaterally clear. CARDIOVASCULAR: Regular rhythm. ABDOMEN: Soft. EXTREMITIES: Right leg tenderness. GENITOURINARY: Deferred. LABORATORY DATA: White counts are 4000, hemoglobin 13, hematocrit 40, platelets are 205. Chemistry panel, BUN 26, creatinine 1.4, sodium 147. Troponins are 0.086. BNP was 353. ASSESSMENT: 1. Acute coronary syndrome. 2. PE. 3. DVT. 4. Hyperlipidemia. PLAN: The patient is going for stress test tomorrow. Continue Lipitor, isosorbide, Lasix. Continue Plavix, cyclobenzaprine, and [place] for severe pain and Norvasc 10 mg at bedtime. We will also consider Hematology/Oncology consult for recurrent DVT and PE. Navneet Arango M.D. DR: WALLY JOB#: [id number] CC:
--- NOTE | 2019-07-22 19:10 | NUR ---
HAND-OFF: Report given to DAISY ORELLANA. Pt is stable and sleeping, stress tech KARLOS kumar RN due to stress test will do late tomorrow afternoon, pt can eat breakfast and be NPO after breakfast, pt and DAISY ORELLANA are aware.
--- NOTE | 2019-07-22 19:25 | NUR ---
NURSE NOTES: Patient is asleep in bed. No signs of distress noted at this time. No signs of pain. Bed in the lowest position, call light within reach, side rails up x3. Will continue plan of care.
[2019-07-22 20:00] VITALS: BP 120/69
[2019-07-22] MEDS: Atorvastatin 80mg tab ORAL SCH (21:39)
[2019-07-23] VITALS: BP 119/72
[2019-07-23 04:00] VITALS: BP 110/78
[2019-07-23] MEDS: HYDROcodone/Acetamin 5/325 tab ORAL PRN ×2 (05:58→16:30)
--- NOTE | 2019-07-23 06:35 | Hematology/Onc Progress Note ---
Assessment/Plan Assessment/Plan Assessment and Recs: # Bilateral DVt s/p ivc filter placement has been on xarelto, also a history of recurrent PE --> continue on xarelto at this time, will need this medication lifelong --> no evidence of bleeding at this time is ntoed --> also hx of cardiomyopathy with 4 stents per patient, Dr. Lehman recs noted --> further age appropriate cancer screening --> 07/22 ve duplex: Suggestion of mild nonocclusive chronic DVT in the right SFV. No evidence of acute deep venous thrombosis involving the lower extremities. # Leukopenia borderline --> r/o hepatitis and hiv --> peripheral smear is pending # ACS (acute coronary syndrome) --> as per cards recs --> hx of stent placement, open heart surgery --> on plavix # Juan - with elev cr --> on ivf and as per renal --> trend cr as needed # Hyperbilirubinemia --> elev total bili and ind bili --> as per gi # Sternotomy wires, atelectasis # Dvt ppx xarelto John Rn and appreciate consultation Subjective Constitutional: Denies: no symptoms, chills, fever, malaise, weakness, other HEENT: Denies: no symptoms, eye pain, blurred vision, tearing, double vision, ear pain, ear discharge, nose pain, nose congestion, throat pain, throat swelling, mouth pain, mouth swelling, other Cardiovascular: Denies: no symptoms, chest pain, edema, irregular heart rate, lightheadedness, palpitations, syncope, other Respiratory: Denies: no symptoms, cough, shortness of breath, SOB with excertion, SOB at rest, sputum, wheezing, other Gastrointestinal/Abdominal: Denies: no symptoms, abdomen distended, abdominal pain, black stools, tarry stools, blood in stool, constipated, diarrhea, difficulty swallowing, nausea, poor appetite, poor fluid intake, rectal bleeding , vomiting, other Neurologic/Psychiatric: Denies: no symptoms, anxiety, depressed, emotional problems, headache, numbness, paresthesia, pre-existing deficit, seizure, tingling, tremors, weakness, other Endocrine: Denies: no symptoms, excessive sweating, flushing, intolerance to cold, intolerance to heat, increased hunger, increased thirst, increased urine, unexplained weight gain, unexplained weight loss, other Hematologic/Lymphatic: Denies: no symptoms, anemia, easy bleeding, easy bruising, adenopathy, other Allergies: Coded Allergies: No Known Allergies (Unverified , 03/21/14) Subjective 07/22: awake and alert, no overnight events, no sob, reggie duplex reviewed, 07/23: labs have been reviewed, for stress test today, on xarelto Objective Objective Current Medications Medications (Trade) Dose Ordered Sig/Hal Route PRN Reason Start Time Stop Time Status Last Admin Dose Admin Acetaminophen (Tylenol) 650 mg Q4H PRN ORAL Mild Pain/Temp > 100.5 07/19/19 15:15 08/18/19 15:14 Acetaminophen/ Hydrocodone Bitart ([place] 5/325) 1 tab Q6H PRN ORAL pain 4-10 07/20/19 10:15 07/27/19 10:14 07/23/19 05:58 Amlodipine Besylate (Norvasc) 10 mg DAILY ORAL 07/20/19 09:00 08/19/19 08:59 07/22/19 08:58 Aspirin (Ecotrin) 81 mg DAILY ORAL 07/20/19 09:00 08/19/19 08:59 07/22/19 08:59 Atorvastatin Calcium (Lipitor) 80 mg BEDTIME ORAL 07/21/19 21:00 08/20/19 20:59 07/22/19 21:39 Clopidogrel Bisulfate (Plavix) 75 mg DAILY ORAL 07/21/19 09:00 08/20/19 08:59 07/22/19 08:58 Cyclobenzaprine HCl (Flexeril) 10 mg BID ORAL 07/20/19 18:00 08/19/19 17:59 07/22/19 18:03 Furosemide (Lasix) 40 mg DAILY ORAL 07/21/19 09:00 08/19/19 08:59 07/22/19 08:59 Isosorbide Mononitrate (Imdur) 30 mg DAILY ORAL 07/21/19 09:00 08/20/19 08:59 07/22/19 08:59 Metoprolol Tartrate (Lopressor) 25 mg EVERY 12 HOURS ORAL 07/19/19 21:00 08/18/19 20:59 07/22/19 08:59 Nitroglycerin (Ntg) 0.4 mg Q5M PRN SL Prn Chest Pain 07/19/19 15:15 08/18/19 15:14 Regadenoson (Lexiscan) 0.4 mg ONCE PRN IV STRESS TEST 07/22/19 12:00 07/24/19 23:59 Rivaroxaban (Xarelto) 20 mg DAILY ORAL 07/20/19 09:00 08/19/19 08:59 07/22/19 09:03 Last 24 Hour Vital Signs Date Time Temp Pulse Resp B/P (MAP) Pulse Ox O2 Delivery O2 Flow Rate FiO2 07/23/19 04:00 96.7 66 16 110/78 (89) 98 07/23/19 04:00 60 07/23/19 00:00 97.7 61 15 119/72 (88) 96 07/23/19 00:00 56 07/22/19 21:00 Room Air 07/22/19 21:00 56 07/22/19 20:00 59 07/22/19 20:00 97.2 55 15 120/69 (86) 95 07/22/19 16:00 97.7 56 20 112/62 (79) 100 07/22/19 15:45 70 07/22/19 12:00 98.1 56 20 126/65 (85) 100 07/22/19 11:53 58 07/22/19 09:09 Room Air 07/22/19 08:59 146/95 07/22/19 08:59 58 146/95 07/22/19 08:58 58 146/95 07/22/19 08:03 96.3 58 20 146/95 (112) 96 07/22/19 08:00 91 07/22/19 04:00 53 07/22/19 04:00 97.5 63 20 131/77 (95) 97 07/22/19 00:00 53 07/22/19 00:00 97.3 53 20 133/75 (94) 94 07/21/19 22:48 94 116/83 07/21/19 21:00 Room Air 07/21/19 20:00 98.1 90 20 116/83 (94) 95 07/21/19 20:00 90 07/21/19 16:00 97.7 65 20 117/75 (89) 95 2/24/20 15:20 70 07/21/19 11:39 97.7 54 20 133/82 (99) 95 07/21/19 11:30 83 07/21/19 10:15 53 146/86 07/21/19 10:14 146/86 07/21/19 10:14 57 146/86 07/21/19 09:00 Room Air 07/21/19 08:35 96.8 57 18 146/86 (106) 94 07/21/19 07:36 54 Intake and Output 07/22/19 07/23/19 19:00 07:00 Intake Total 890 ml 600 ml Balance 890 ml 600 ml Intake Oral 890 ml 600 ml # Voids 6 5 # Bowel Movements 1 1 Labs Test 07/20/19 07:36 07/21/19 10:55 07/21/19 16:40 07/22/19 03:00 Troponin I 0.099 ng/mL (0.000-0.056) 0.083 ng/mL (0.000-0.056) 0.101 ng/mL (0.000-0.056) 0.086 ng/mL (0.000-0.056) White Blood Count 5.8 K/UL (4.8-10.8) 4.0 K/UL (4.8-10.8) Red Blood Count 4.35 M/UL (4.70-6.10) 4.23 M/UL (4.70-6.10) Hemoglobin 14.3 G/DL (14.2-18.0) 13.3 G/DL (14.2-18.0) Hematocrit 40.5 % (42.0-52.0) 40.4 % (42.0-52.0) Mean Corpuscular Volume 93 FL (80-99) 96 FL (80-99) Mean Corpuscular Hemoglobin 32.8 PG (27.0-31.0) 31.4 PG (27.0-31.0) Mean Corpuscular Hemoglobin Concent 35.2 G/DL (32.0-36.0) 32.8 G/DL (32.0-36.0) Red Cell Distribution Width 13.5 % (11.6-14.8) 15.6 % (11.6-14.8) Platelet Count 158 K/UL (150-450) 205 K/UL (150-450) Mean Platelet Volume 8.6 FL (6.5-10.1) 10.8 FL (6.5-10.1) Neutrophils (%) (Auto) 63.1 % (45.0-75.0) 46.4 % (45.0-75.0) Lymphocytes (%) (Auto) 26.2 % (20.0-45.0) 37.4 % (20.0-45.0) Monocytes (%) (Auto) 6.3 % (1.0-10.0) 8.4 % (1.0-10.0) Eosinophils (%) (Auto) 3.1 % (0.0-3.0) 6.3 % (0.0-3.0) Basophils (%) (Auto) 1.4 % (0.0-2.0) 1.6 % (0.0-2.0) Sodium Level 140 MMOL/L (136-145) 147 MMOL/L (136-145) Potassium Level 4.1 MMOL/L (3.5-5.1) 4.1 MMOL/L (3.5-5.1) Chloride Level 105 MMOL/L (98-107) 109 MMOL/L (98-107) Carbon Dioxide Level 31 MMOL/L (21-32) 30 MMOL/L (21-32) Anion Gap 4 mmol/L (5-15) 8 mmol/L (5-15) Blood Urea Nitrogen 24 mg/dL (7-18) 26 mg/dL (7-18) Creatinine 1.2 MG/DL (0.55-1.30) 1.4 MG/DL (0.55-1.30) Estimat Glomerular Filtration Rate > 60 mL/min (>60) 51.0 mL/min (>60) Glucose Level 105 MG/DL (74-106) 99 MG/DL (74-106) Calcium Level 9.2 MG/DL (8.5-10.1) 8.9 MG/DL (8.5-10.1) Pro-B-Type Natriuretic Peptide 642 pg/mL (0-125) 353 pg/mL (0-125) Height (Feet): 6 Height (Inches): 2.00 Weight (Pounds): 234 Objective PE Vitals: noted General: no apparent distress, alert Head: normocephalic, atraumatic HEENT: at, ac Neck: supple Resp: chest non-tender, lungs clear, normal breath sounds Cardiovascular: regular rate, rhythm, no edema GI: normal bowel sounds, non tender, soft, non-distended, no guarding, no rebound Gu: normal inspection, no CVA tenderness Musculoskeletal: back normal, normal range of motion Neuro: alert, motor strength/tone normal, oriented x3 Lymphatic: no adenopathy Tony Santos MD Jul 23, 2019 06:35
--- NOTE | 2019-07-23 07:26 | NUR ---
HAND-OFF: Report given to REYNA HOOPER. PATIENT RESTING IN BED, NO SIGNS OF DISTRESS NOTED.
--- NOTE | 2019-07-23 07:30 | NUR ---
NURSE NOTES: Received pt from [facility], Pt is awake and alert, pt is in RA, no SOB or acute respiratory distress noted. pt has intact iv access RFA 20G SL. Pt is on continues heart monitoring. Pt is aware to be NPO after breakfast. all needs attended, bed is locked and is in the lowest position, call light within easy reach. will continue to monitor.
[2019-07-23 07:37] LABS: ANION GAP 10 mmol/L (5-15); BLOOD UREA NITROGEN 30 mg/dL (7-18); CALCIUM 9.1 MG/DL (8.5-10.1); CARBON DIOXIDE 27 MMOL/L (21-32); CHLORIDE 109 MMOL/L (98-107); CREATININE 1.3 MG/DL (0.55-1.30); POTASSIUM 4.3 MMOL/L (3.5-5.1); SODIUM 146 MMOL/L (136-145)
--- NOTE | 2019-07-23 07:50 | Cardiac Electrophysiology PN ---
Assessment/Plan Assessment/Plan 1. Non-ST elevation myocardial infarction with chest pain and elevated troponin in the patient with history of CABG in [place] in 2013 and multiple stents. His EKG does not show any ST elevation, actually show sinus rhythm with left anterior fascicular block and mild LVH. We will treat the patient medically at this time with aspirin 81 mg daily and metoprolol 25 mg b.i.d. and Lipitor. Stress test at [facility] 12/2018 showed only small to medium partially reversible defect in inferolateral wall. His echocardiogram also showed EF of 55% to 60% with no pericardial effusion. Stress test pending today and if significant ischemia, will transfer for cardiac cath. 2. History of recurrent DVT, status post IVC filter and Xarelto 20 mg daily. 3. Hypertension on metoprolol 25 b.i.d., Norvasc 10 mg daily and Lasix to 40 mg p.o. daily. 4. History of multiple abdominal surgeries. ETHAN RN Subjective Subjective No SOB. Scheduled for stress test today. Records from [facility] from 2018 reviewed Objective Last 24 Hour Vital Signs Date Time Temp Pulse Resp B/P (MAP) Pulse Ox O2 Delivery O2 Flow Rate FiO2 07/23/19 04:00 96.7 66 16 110/78 (89) 98 07/23/19 04:00 60 07/23/19 00:00 97.7 61 15 119/72 (88) 96 07/23/19 00:00 56 07/22/19 21:00 Room Air 07/22/19 21:00 56 07/22/19 20:00 59 07/22/19 20:00 97.2 55 15 120/69 (86) 95 07/22/19 16:00 97.7 56 20 112/62 (79) 100 07/22/19 15:45 70 07/22/19 12:00 98.1 56 20 126/65 (85) 100 07/22/19 11:53 58 07/22/19 09:09 Room Air 07/22/19 08:59 146/95 07/22/19 08:59 58 146/95 07/22/19 08:58 58 146/95 07/22/19 08:03 96.3 58 20 146/95 (112) 96 07/22/19 08:00 91 Intake and Output 07/22/19 07/23/19 19:00 07:00 Intake Total 890 ml 600 ml Balance 890 ml 600 ml Intake Oral 890 ml 600 ml # Voids 6 5 # Bowel Movements 1 1 Laboratory Tests Test 07/23/19 06:54 Sodium Level 146 MMOL/L (136-145) H Potassium Level 4.3 MMOL/L (3.5-5.1) Chloride Level 109 MMOL/L (98-107) H Carbon Dioxide Level 27 MMOL/L (21-32) Anion Gap 10 mmol/L (5-15) Blood Urea Nitrogen 30 mg/dL (7-18) H Creatinine 1.3 MG/DL (0.55-1.30) Estimat Glomerular Filtration Rate 55.6 mL/min (>60) Glucose Level 99 MG/DL (74-106) Calcium Level 9.1 MG/DL (8.5-10.1) Hepatitis A IgM Antibody Pending Hepatitis B Surface Antigen Pending Hepatitis B Core IgM Antibody Pending Hepatitis C Antibody Pending HIV (1&2) Antibody Rapid Pending Objective HEAD AND NECK: No JVD or carotid bruits. LUNGS: Clear. CARDIOVASCULAR: Regular S1 and S2 with no gallop or murmur. Sternotomy scar is intact. ABDOMEN: Soft, status post multiple surgeries. EXTREMITIES: No pitting edema. Odell Lheman MD Jul 23, 2019 07:50
[2019-07-23 08:00] VITALS: BP 143/80
[2019-07-23] MEDS: Xarelto 10mg tab ORAL SCH (09:06)
[2019-07-23] MEDS: Cyclobenzaprine 10mg Tab ORAL SCH ×2 (09:07→17:09)
[2019-07-23] MEDS: Imdur 30mg tab ORAL SCH (09:07)
[2019-07-23] MEDS: Furosemide 40mg tab ORAL SCH (09:08)
[2019-07-23] MEDS: Aspirin EC 81mg tab ORAL SCH (09:08)
[2019-07-23 11:59] VITALS: BP 137/90
[2019-07-23 16:00] VITALS: BP 129/79
--- NOTE | 2019-07-23 16:21 | NUR ---
CASE MANAGEMENT: INITIAL REVIEW 63YR OLD MALE FROM HOME CC:CHEST PAIN SI:ACUTE CORONARY SYNDROME 97.8 82 18 133/87 99% ON RA TROP 0.117 BUN 25 CREAT 1.4 CL-108 BG 107 BNP 585 IS:IV LASIX X2 FLU VACCINE IM X1 PNEUMOVAX IM X1 IV MORPHINE SULFATE X1 CHEST X-RAY -POSS SM. LEFT PLEURAL EFFUSION \: 2E TELE UNIT CASE MANAGEMENT: REVIEW 07/21/19 SI:ACUTE CORONARY SYNDROME 97.7 54 20 133/82 95% ON RA TROP 0.083-0.101 BUN 24 BNP 642 IS:NORVASC PO QD LOPRESSOR PO BID IMDUR PO QD PLAVIX PO QD LIPITOR PO QHS ASPIRIN PO QD \: 2E TELE UNIT PLAN: [place] CASE MANAGEMENT: REVIEW 07/23/19 SI:ACUTE CORONARY SYNDROME 97.3 64 20 143/80 95% ON RA NA+ 146 CL- 109 BUN 30 IS:NORVASC PO QD LOPRESSOR PO BID IMDUR PO QD PLAVIX PO QD LIPITOR PO QHS ASPIRIN PO QD \: 2E TELE UNIT PLAN: [place] HEP PANEL- PENDING VENOUS DUPLEX
--- NOTE | 2019-07-23 16:36 | NUR ---
NURSE NOTES: stress test finished by Dr LOYOLA and pt tolerated well, before stress test Dr LOYOLA is aware that pt took beta francisco in the morning, but Dr LOYOLA stated no problem and they can do stress test. will continue to monitor.
--- NOTE | 2019-07-23 19:20 | NUR ---
NURSE NOTES: Received patient from REYNA Dudley. Gama
--- NOTE | 2019-07-23 19:23 | NUR ---
HAND-OFF: Report given to KENTON ORELLANA. Pt is sleeping and stable.
--- NOTE | 2019-07-23 19:28 | NUR ---
NURSE NOTES: Received report from REYNA Dudley. Patient resting in bed awake and watching television. There are no signs of distress or pain at this time. Checked IV site, patent and flushed. Bed in the lowest position, side rails up x 2, call light within reach. will continue plan of care.
[2019-07-23 20:00] VITALS: BP 136/65
[2019-07-23] MEDS: Atorvastatin 80mg tab ORAL SCH (20:45)
[2019-07-24] VITALS: BP 130/61
[2019-07-24 04:00] VITALS: BP 126/65
--- NOTE | 2019-07-24 07:15 | NUR ---
HAND-OFF: Report given to REYNA Juan. Patient awake in bed, in stable condition.No distress or pain noted at this time.
[2019-07-24 07:19] LABS: ANION GAP 6 mmol/L (5-15); BLOOD UREA NITROGEN 31 mg/dL (7-18); CALCIUM 9.3 MG/DL (8.5-10.1); CARBON DIOXIDE 31 MMOL/L (21-32); CHLORIDE 106 MMOL/L (98-107); CREATININE 1.3 MG/DL (0.55-1.30); POTASSIUM 4.5 MMOL/L (3.5-5.1); SODIUM 143 MMOL/L (136-145)
[2019-07-24 07:43] LABS: BASOPHILS % (AUTO) 2.1 % (0.0-2.0); EOSINOPHILS % (AUTO) 6.9 % (0.0-3.0); HEMATOCRIT 41.2 % (42.0-52.0); HEMOGLOBIN 13.8 G/DL (14.2-18.0); LYMPHOCYTES % (AUTO) 38.2 % (20.0-45.0); MEAN CORPUSCULAR VOLUME 96 FL (80-99); MONOCYTES % (AUTO) 8.9 % (1.0-10.0); PLATELET COUNT 167 K/UL (150-450); RED CELL DISTRIBUTION WIDTH 12.7 % (11.6-14.8)
--- NOTE | 2019-07-24 07:57 | NUR ---
NURSE NOTES: Pt in room walking around, denies pain, breakfast at bedside, vital WNL, pt Ox4 calm and cooperative, ambulates with steady gait, no s'/s of distress or sob noted. pt expressed he would like to discharge soon.
[2019-07-24 08:00] VITALS: BP 142/88
[2019-07-24 09:05] VITALS: BP 142/88
[2019-07-24] MEDS: Aspirin EC 81mg tab ORAL SCH (09:05)
[2019-07-24] MEDS: Cyclobenzaprine 10mg Tab ORAL SCH (09:05)
[2019-07-24] MEDS: Imdur 30mg tab ORAL SCH (09:05)
[2019-07-24] MEDS: Furosemide 40mg tab ORAL SCH (09:05)
[2019-07-24] MEDS: Xarelto 10mg tab ORAL SCH (09:05)
--- NOTE | 2019-07-24 09:53 | Cardiac Electrophysiology PN ---
Assessment/Plan Assessment/Plan 1. Non-ST elevation myocardial infarction with chest pain and elevated troponin in the patient with history of CABG in [place] in 2013 and multiple stents. His EKG does not show any ST elevation, actually show sinus rhythm with left anterior fascicular block and mild LVH. We will treat the patient medically at this time with aspirin 81 mg daily and metoprolol 25 mg b.i.d. and Lipitor. Stress test at [facility] 12/2018 showed only small to medium partially reversible defect in inferolateral wall. His echocardiogram also showed EF of 55% to 60% with no pericardial effusion. Nuclear Stress test report pending and if significant ischemia, will transfer for cardiac cath. Otherwise will DC 2. History of recurrent DVT, status post IVC filter and Xarelto 20 mg daily. 3. Hypertension on metoprolol 25 b.i.d., Norvasc 10 mg daily and Lasix to 40 mg p.o. daily. 4. History of multiple abdominal surgeries. ETHAN RN Subjective Subjective No SOB. Had stress test yesterday. Records from [facility] from 2017 reviewed Objective Last 24 Hour Vital Signs Date Time Temp Pulse Resp B/P (MAP) Pulse Ox O2 Delivery O2 Flow Rate FiO2 07/24/19 09:05 142/88 07/24/19 09:05 64 142/88 07/24/19 09:04 64 142/88 07/24/19 08:00 97.3 64 18 142/88 (106) 94 07/24/19 07:48 95 07/24/19 04:00 49 07/24/19 04:00 98.5 60 18 126/65 (85) 97 07/24/19 00:00 54 07/24/19 00:00 97.5 60 16 130/61 (84) 96 07/23/19 21:00 Room Air 07/23/19 20:46 62 136/65 07/23/19 20:00 97.9 62 16 136/65 (88) 95 07/23/19 20:00 56 07/23/19 16:36 93 07/23/19 16:00 98.3 58 20 129/79 (96) 98 07/23/19 11:59 98.1 58 20 137/90 (106) 98 07/23/19 11:39 56 Intake and Output 07/23/19 07/24/19 19:00 07:00 Intake Total 570 ml 100 ml Output Total 3 ml Balance 567 ml 100 ml Intake Oral 570 ml 100 ml Output Urine Total 3 ml # Voids 3 2 Laboratory Tests Test 07/24/19 05:45 White Blood Count 4.0 K/UL (4.8-10.8) L Red Blood Count 4.30 M/UL (4.70-6.10) L Hemoglobin 13.8 G/DL (14.2-18.0) L Hematocrit 41.2 % (42.0-52.0) L Mean Corpuscular Volume 96 FL (80-99) Mean Corpuscular Hemoglobin 32.2 PG (27.0-31.0) H Mean Corpuscular Hemoglobin Concent 33.5 G/DL (32.0-36.0) Red Cell Distribution Width 12.7 % (11.6-14.8) Platelet Count 167 K/UL (150-450) Mean Platelet Volume 9.6 FL (6.5-10.1) Neutrophils (%) (Auto) 44.0 % (45.0-75.0) L Lymphocytes (%) (Auto) 38.2 % (20.0-45.0) Monocytes (%) (Auto) 8.9 % (1.0-10.0) Eosinophils (%) (Auto) 6.9 % (0.0-3.0) H Basophils (%) (Auto) 2.1 % (0.0-2.0) H Sodium Level 143 MMOL/L (136-145) Potassium Level 4.5 MMOL/L (3.5-5.1) Chloride Level 106 MMOL/L (98-107) Carbon Dioxide Level 31 MMOL/L (21-32) Anion Gap 6 mmol/L (5-15) Blood Urea Nitrogen 31 mg/dL (7-18) H Creatinine 1.3 MG/DL (0.55-1.30) Estimat Glomerular Filtration Rate 55.6 mL/min (>60) Glucose Level 94 MG/DL (74-106) Calcium Level 9.3 MG/DL (8.5-10.1) Objective HEAD AND NECK: No JVD or carotid bruits. LUNGS: Clear. CARDIOVASCULAR: Regular S1 and S2 with no gallop or murmur. Sternotomy scar is intact. ABDOMEN: Soft, status post multiple surgeries. EXTREMITIES: No pitting edema. Odell Lehman MD Jul 24, 2019 09:53
--- NOTE | 2019-07-24 10:30 | Diagnostic Imaging Report ---
Indications: 63-year-old male with chest pain and elevated troponins Technique: Single day single isotope protocol utilized. Initially, resting images obtained using IV administration 10.2 millicuries 99M technetium Myoview. Subsequently, patient underwent lexiscan stress testing. See cardiology report for details. During Lexiscan infusion, IV administration 30.8 mCi 99 M technetium Myoview. SPECT and planar images obtained. SPECT images gated to 8 phases of the cardiac cycle were also obtained, and reformatted into cine images for evaluation of ejection fraction. Comparison: 03/24/2014 Findings: Per cardiology report, patient experienced chest pain. Per cardiology report, resting EKG demonstrates sinus bradycardia and LASH. No significant ST changes noted during infusion. Imaging demonstrates no definite fixed nor reversible poststress perfusion defects. The left ventricular chamber appears mildly dilated. Calculated post stress ejection fraction 57%. No focal wall motion abnormality. No significant interim change Impression: Nonischemic clinical response to pharmacologic stress, per cardiology report Nonischemic electrocardiographic response to pharmacologic stress, per cardiology report No imaging findings to suggest ischemia, at level of stress achieved. Calculated post stress ejection fraction 57%
--- NOTE | 2019-07-24 12:19 | NUR ---
NURSE NOTES: Pt recieved discharge order by Md Arango pending Md Mejía recommendation. To be discharged with home meds, and to follow up with PMD in one week, IV, ID band, and manager monitoring removed, aftercare plan and med recon given. Pt was able to walk steadily to lobby followed by REYNA Juan. Pt belongings were checked with patient and pt signed off.
--- NOTE | 2019-07-24 13:13 | Hematology/Onc Progress Note ---
Assessment/Plan Assessment/Plan Assessment and Recs: # Bilateral DVt s/p ivc filter placement has been on xarelto, also a history of recurrent PE --> continue on xarelto at this time, will need this medication lifelong --> no evidence of bleeding at this time is ntoed --> also hx of cardiomyopathy with 4 stents per patient, Dr. Lehman recs noted --> further age appropriate cancer screening --> 07/22 ve duplex: Suggestion of mild nonocclusive chronic DVT in the right SFV. No evidence of acute deep venous thrombosis involving the lower extremities. # Leukopenia borderline --> r/o hepatitis and hiv --> peripheral smear is pending # ACS (acute coronary syndrome) --> as per cards recs --> hx of stent placement, open heart surgery --> on plavix # Juan - with elev cr --> on ivf and as per renal --> trend cr as needed # Hyperbilirubinemia --> elev total bili and ind bili --> as per gi # Sternotomy wires, atelectasis # Dvt ppx xarelto John Rn and appreciate consultation Subjective Allergies: Coded Allergies: No Known Allergies (Unverified , 03/21/14) Subjective 07/22: awake and alert, no overnight events, no sob, reggie duplex reviewed, 07/23: labs have been reviewed, for stress test today, on xarelto 07/24: awake and alert, no acute events, stable for dc Objective Objective Last 24 Hour Vital Signs Date Time Temp Pulse Resp B/P (MAP) Pulse Ox O2 Delivery O2 Flow Rate FiO2 07/24/19 09:05 142/88 07/24/19 09:05 64 142/88 07/24/19 09:04 64 142/88 07/24/19 08:00 97.3 64 18 142/88 (106) 94 07/24/19 07:48 95 07/24/19 04:00 49 07/24/19 04:00 98.5 60 18 126/65 (85) 97 07/24/19 00:00 54 07/24/19 00:00 97.5 60 16 130/61 (84) 96 07/23/19 21:00 Room Air 07/23/19 20:46 62 136/65 07/23/19 20:00 97.9 62 16 136/65 (88) 95 07/23/19 20:00 56 07/23/19 16:36 93 07/23/19 16:00 98.3 58 20 129/79 (96) 98 07/23/19 11:59 98.1 58 20 137/90 (106) 98 07/23/19 11:39 56 07/23/19 09:08 64 143/80 07/23/19 09:07 143/80 07/23/19 09:07 64 143/80 07/23/19 09:00 Room Air 07/23/19 08:00 97.3 64 20 143/80 (101) 95 07/23/19 07:56 67 07/23/19 04:00 96.7 66 16 110/78 (89) 98 07/23/19 04:00 60 07/23/19 00:00 97.7 61 15 119/72 (88) 96 07/23/19 00:00 56 07/22/19 21:00 Room Air 07/22/19 21:00 56 07/22/19 20:00 59 07/22/19 20:00 97.2 55 15 120/69 (86) 95 07/22/19 16:00 97.7 56 20 112/62 (79) 100 07/22/19 15:45 70 Intake and Output 07/23/19 07/24/19 19:00 07:00 Intake Total 570 ml 100 ml Output Total 3 ml Balance 567 ml 100 ml Intake Oral 570 ml 100 ml Output Urine Total 3 ml # Voids 3 2 Labs Test 07/21/19 16:40 07/22/19 03:00 07/23/19 06:54 07/24/19 05:45 Troponin I 0.101 ng/mL (0.000-0.056) 0.086 ng/mL (0.000-0.056) White Blood Count 4.0 K/UL (4.8-10.8) 4.0 K/UL (4.8-10.8) Red Blood Count 4.23 M/UL (4.70-6.10) 4.30 M/UL (4.70-6.10) Hemoglobin 13.3 G/DL (14.2-18.0) 13.8 G/DL (14.2-18.0) Hematocrit 40.4 % (42.0-52.0) 41.2 % (42.0-52.0) Mean Corpuscular Volume 96 FL (80-99) 96 FL (80-99) Mean Corpuscular Hemoglobin 31.4 PG (27.0-31.0) 32.2 PG (27.0-31.0) Mean Corpuscular Hemoglobin Concent 32.8 G/DL (32.0-36.0) 33.5 G/DL (32.0-36.0) Red Cell Distribution Width 15.6 % (11.6-14.8) 12.7 % (11.6-14.8) Platelet Count 205 K/UL (150-450) 167 K/UL (150-450) Mean Platelet Volume 10.8 FL (6.5-10.1) 9.6 FL (6.5-10.1) Neutrophils (%) (Auto) 46.4 % (45.0-75.0) 44.0 % (45.0-75.0) Lymphocytes (%) (Auto) 37.4 % (20.0-45.0) 38.2 % (20.0-45.0) Monocytes (%) (Auto) 8.4 % (1.0-10.0) 8.9 % (1.0-10.0) Eosinophils (%) (Auto) 6.3 % (0.0-3.0) 6.9 % (0.0-3.0) Basophils (%) (Auto) 1.6 % (0.0-2.0) 2.1 % (0.0-2.0) Sodium Level 147 MMOL/L (136-145) 146 MMOL/L (136-145) 143 MMOL/L (136-145) Potassium Level 4.1 MMOL/L (3.5-5.1) 4.3 MMOL/L (3.5-5.1) 4.5 MMOL/L (3.5-5.1) Chloride Level 109 MMOL/L (98-107) 109 MMOL/L (98-107) 106 MMOL/L (98-107) Carbon Dioxide Level 30 MMOL/L (21-32) 27 MMOL/L (21-32) 31 MMOL/L (21-32) Anion Gap 8 mmol/L (5-15) 10 mmol/L (5-15) 6 mmol/L (5-15) Blood Urea Nitrogen 26 mg/dL (7-18) 30 mg/dL (7-18) 31 mg/dL (7-18) Creatinine 1.4 MG/DL (0.55-1.30) 1.3 MG/DL (0.55-1.30) 1.3 MG/DL (0.55-1.30) Estimat Glomerular Filtration Rate 51.0 mL/min (>60) 55.6 mL/min (>60) 55.6 mL/min (>60) Glucose Level 99 MG/DL (74-106) 99 MG/DL (74-106) 94 MG/DL (74-106) Calcium Level 8.9 MG/DL (8.5-10.1) 9.1 MG/DL (8.5-10.1) 9.3 MG/DL (8.5-10.1) Pro-B-Type Natriuretic Peptide 353 pg/mL (0-125) Hepatitis A IgM Antibody Negative (Negative) Hepatitis B Surface Antigen Negative (Negative) Hepatitis B Core IgM Antibody Negative (Negative) Hepatitis C Antibody <0.1 s/co ratio HIV (1&2) Antibody Rapid Negative (NEGATIVE) Height (Feet): 6 Height (Inches): 2.00 Weight (Pounds): 234 Objective PE Vitals: noted General: no apparent distress, alert Head: normocephalic, atraumatic HEENT: at, ac Neck: supple Resp: chest non-tender, lungs clear, normal breath sounds Cardiovascular: regular rate, rhythm, no edema GI: normal bowel sounds, non tender, soft, non-distended, no guarding, no rebound Gu: normal inspection, no CVA tenderness Musculoskeletal: back normal, normal range of motion Neuro: alert, motor strength/tone normal, oriented x3 Lymphatic: no adenopathy Tony Santos MD Jul 24, 2019 13:13
--- NOTE | 2019-07-24 15:15 | Progress Note ---
DATE: 07/24/2019 SUBJECTIVE: This is an elderly 63-year-old male who came to the emergency room for having acute coronary syndrome, hypertension, hyperlipidemia. The patient underwent stress test. Results are pending, but physically patient doing fine. He has also had chronic DVT on right leg and has been taking Xarelto. The patient physically doing fine, no distress. Cardiology consult was obtained. PHYSICAL EXAMINATION: VITAL SIGNS: Current vital signs, blood pressure 142/88, pulse 64, respirations 18, no fever. HEENT: NAD. CHEST: Bilaterally clear. CARDIOVASCULAR: Regular rhythm. No gallop. No murmur. ABDOMEN: Soft. EXTREMITIES: Right leg tenderness, resolved. GENITOURINARY: Deferred. LABORATORY DATA: White counts are 4, hemoglobin 14, hematocrit 42, platelets are 167. Chemistry panel, BUN 31, creatinine 1.3, sodium 143. Troponins are 0.86 that was on 07/22/2019. ASSESSMENT: Acute coronary syndrome, the patient is waiting the results of stress test. The patient going to go home with Xarelto. Followup at outpatient. DISCHARGE DIAGNOSES: 1. Acute coronary syndrome. 2. Chronic DVT. 3. Hypertension. DIET: He is on 2 grams sodium diet. Risks versus benefits explained with Xarelto. The patient was recommended followup in office. Navneet Arango M.D. DR: Megan JOB#: [id number] CC:
--- NOTE | 2019-07-28 07:24 | Discharge Summary ---
Discharge Summary Discharge Summary _ DATE OF ADMISSION: 07/19/2019 DATE OF DISCHARGE: 07/24/2019 DISCHARGED BY: Dr. Arango REASON FOR ADMISSION: 63 years old male with past medical history of hypertension, coronary artery disease, myocardial infarction, status post 3 stents and triple bypass in 2009, high cholesterol, presented for chest pain Chest pain was reported as burning, 7 out of 10, nonradiating and left-sided. He denied shortness of breath. He noted leg swelling. He denies smoking or drug use. Upon evaluation vital signs were stable. Laboratory work-up revealed no leukocytosis, stable hemoglobin and hematocrit. Stable electrolytes. BUN 25 , creatinine 1.4. Glucose 107. Troponin elevated 0.117. Pro BNP 585 . EKG reveals sinus rhythm , no acute ischemic changes. Chest x-ray revealed no acute cardiopulmonary pathology. Patient subsequently admitted to telemetry floor for further management. CONSULTANTS: assembler hydraulic backhoe Dr. Wright aviation safety inspector/oncologist Dr. Santos [facility] COURSE: Patient admitted to telemetry floor Echocardiogram demonstrated preserved ejection fraction of 55 to 60% with borderline left ventricular hypertrophy. No evidence of pericardial effusion. No evidence of wall motion abnormality. Right ventricular systolic pressure of 43, consistent with a mild pulmonary hypertension. Serial troponin were minimally elevated. EKG showed no acute ischemic changes, but revealed left anterior fascicular block and mild LVH . Per assembler hydraulic backhoe patient had NSTEMI. Patient was treated medically with antiplatelet therapy with aspirin, beta- francisco and statin. Patient had a stress test at [facility] in December 2018, which showed only small to medium partially reversible defect in the inferolateral wall. Patient subsequently undergone myocardial perfusion stress test in this facility , which revealed no imaging to suggest ischemia at level of stress achieved. Calculated poststress ejection fraction 57%. Patient was educated on compliance with the medication and diet . Quality Project Manager cleared patient for discharge . Patient status post IVC filter due to recurrent DVT and was continued on Xarelto. Blood pressure was managed with beta-francisco, calcium channel francisco and Lasix. Volumes were closely monitored. BNP from 585 down to 353. Patient clinically stabilized and was ready for discharge home. FINAL DIAGNOSES: NSTEMI Coronary artery disease with history of NH and CABG, status post multiply stentd CHF Hypertension History of recurrent DVT and status post IVC filter Chronic anticoagulation DISCHARGE MEDICATIONS: See Medication Reconciliation list. DISCHARGE INSTRUCTIONS: Patient was discharged home. Follow-up with a primary care provider in 1 week. I have been assigned to dictate discharge summary for this account. I was not involved in the patient's management. Linda Rodney NP Jul 28, 2019 07:24
== END 2019-07-24 12:15 | disposition home or self-care (01) | DRG 281 ==
LOC: EMR 11:32 → 2E 12:00 → EDBEDREQ 13:01 → 2E 07-20 04:16
DX: I21.4 Non-ST elevation (NSTEMI) myocardial infarction (principal); N17.9 Acute kidney failure, unspecified; I82.503 Chronic embolism and thrombosis of unspecified deep veins of lower extremity, bilateral; I25.10 Atherosclerotic heart disease of native coronary artery without angina pectoris; Z79.01 Long term (current) use of anticoagulants; I11.0 Hypertensive heart disease with heart failure; I50.9 Heart failure, unspecified; Z86.711 Personal history of pulmonary embolism; E78.5 Hyperlipidemia, unspecified; Z85.9 Personal history of malignant neoplasm, unspecified; Z79.82 Long term (current) use of aspirin
CPT/HCPCS: 36415; 71045; 78452; 80048; 80053; 82248; 83880; 84484; 85025; 85610; 85730; 86703; 86705; 86709; 86803; 87340; 90689; 90732; 93005; 93017; 93306; 93970; 96374; 99285; J2785

== ENCOUNTER 2019-09-19 13:30 | Inpatient (IN) | payer MEDICARE, OTHER ==
[~2019-09-19] VITALS: Ht 185.4 cm; Wt 90.7 kg
[~2019-09-19 13:30] MED LIST changes: +XARELTO10 MG ORAL
[2019-09-19 13:55] VITALS: BP 152/67
[2019-09-19] MEDS ORDERED: POTASSIUM CHLO10 MEQ ORAL (13:56)
[2019-09-19] MEDS ORDERED: LIPITOR20 MG ORAL (13:56)
[2019-09-19] MEDS ORDERED: ZOLOFT25 MG ORAL (13:56)
--- NOTE | 2019-09-19 14:00 | NUR ---
ED Nurse Note: Patient walked into ER due to left side CP, feeling heavy, radiating to right chest, right arm and right leg x 3 hrs with nausea. Patient was playing card game when he started having the pain. Patient presented anxious, stated still having chest pain right now 01/04, AAO x4, VSS at this time, has non labored breathing, O2 sat 96% on RA. Per patient he had bypass 10 years ago.
[2019-09-19] MEDS ORDERED: Nitroglycerin Subl 0.4mg tab SL PRN (14:15)
[2019-09-19 14:23] LABS: BASOPHILS % (AUTO) 2.1 % (0.0-2.0); EOSINOPHILS % (AUTO) 4.4 % (0.0-3.0); HEMATOCRIT 40.3 % (42.0-52.0); HEMOGLOBIN 13.7 G/DL (14.2-18.0); LYMPHOCYTES % (AUTO) 30.4 % (20.0-45.0); MEAN CORPUSCULAR VOLUME 93 FL (80-99); MONOCYTES % (AUTO) 9.1 % (1.0-10.0); PLATELET COUNT 192 K/UL (150-450); RED BLOOD COUNT 4.31 M/UL (4.70-6.10); RED CELL DISTRIBUTION WIDTH 11.8 % (11.6-14.8); WHITE BLOOD COUNT 4.9 K/UL (4.8-10.8)
[2019-09-19 14:28] LABS: ANION GAP 9 mmol/L (5-15); BLOOD UREA NITROGEN 44 mg/dL (7-18); CALCIUM 8.6 MG/DL (8.5-10.1); CARBON DIOXIDE 26 MMOL/L (21-32); CHLORIDE 113 MMOL/L (98-107); CREATININE 1.4 MG/DL (0.55-1.30); POTASSIUM 4.1 MMOL/L (3.5-5.1); SODIUM 148 MMOL/L (136-145)
[2019-09-19 14:30] LABS: INR 0.9 (0.9-1.1)
[2019-09-19] MEDS ORDERED: Morphine Sulfate 2mg/ml Inj(IV/IM USE ONLY) IVP ONE ×2 (14:30→19:15)
[2019-09-19 14:43] LABS: ALANINE AMINOTRANSFERASE 36 U/L (12-78); ALBUMIN 3.4 G/DL (3.4-5.0); ALKALINE PHOSPHATASE 65 U/L (46-116); ASPARTATE AMINO TRANSFERASE 17 U/L (15-37); BILIRUBIN,TOTAL 0.5 MG/DL (0.2-1.0)
--- NOTE | 2019-09-19 14:51 | Diagnostic Imaging Report ---
Indications: Syncope Technique: Spiral acquisitions obtained through the brain. Angled axial and coronal 5 x 5 mm slices were reconstructed. Total dose length product 1072 mGycm. CTDI vol(s) 53 mGy. Dose reduction achieved using automated exposure control Comparison: None. Findings: Intact calvarium. Visualized orbits and sinuses are unremarkable. The mastoids are clear. There is evidence of prior cataract surgery. No acute intracranial hemorrhage or edema. No mass effect nor midline shift. Mildly prominent extra-axial CSF spaces. Normal peguero-white differentiation. Impression: Mild age-related volume loss Negative for acute intracranial bleed or mass effect The CT scanner at [facility] is accredited by the [employer] and the scans are performed using protocols designed to limit radiation exposure to as low as reasonably achievable to attain images of sufficient resolution adequate for diagnostic evaluation.
--- NOTE | 2019-09-19 15:34 | Cardiac Electrophysiology PN ---
Assessment/Plan Assessment/Plan 1. Troponin leak in a patient with history of CABG in [place] in 2013 and multiple stents. His EKG does not show any ST elevation. Last stress test 2019 at [facility] showed no ischemia. Resume aspirin 81 mg daily and metoprolol 25 mg b.i.d. and Lipitor. His prior echocardiogram showed EF of 55% to 60% . 2. History of recurrent DVT, status post IVC filter and Xarelto 20 mg daily. 3. Hypertension on metoprolol 25 b.i.d., Norvasc 10 mg daily and Lasix to 40 mg p.o. daily. 4. History of multiple abdominal surgeries. Dictated [id number] Objective Last 24 Hour Vital Signs Date Time Temp Pulse Resp B/P (MAP) Pulse Ox O2 Delivery O2 Flow Rate FiO2 09/19/19 14:11 155/94 09/19/19 13:55 80 14 Room Air 09/19/19 13:55 97.2 83 14 152/67 99 Room Air 09/19/19 13:40 97.2 80 14 152/67 (95) 99 Room Air Laboratory Tests Test 09/19/19 13:48 White Blood Count 4.9 K/UL (4.8-10.8) Red Blood Count 4.31 M/UL (4.70-6.10) L Hemoglobin 13.7 G/DL (14.2-18.0) L Hematocrit 40.3 % (42.0-52.0) L Mean Corpuscular Volume 93 FL (80-99) Mean Corpuscular Hemoglobin 31.9 PG (27.0-31.0) H Mean Corpuscular Hemoglobin Concent 34.1 G/DL (32.0-36.0) Red Cell Distribution Width 11.8 % (11.6-14.8) Platelet Count 192 K/UL (150-450) Mean Platelet Volume 7.1 FL (6.5-10.1) Neutrophils (%) (Auto) 54.0 % (45.0-75.0) Lymphocytes (%) (Auto) 30.4 % (20.0-45.0) Monocytes (%) (Auto) 9.1 % (1.0-10.0) Eosinophils (%) (Auto) 4.4 % (0.0-3.0) H Basophils (%) (Auto) 2.1 % (0.0-2.0) H Prothrombin Time 10.0 SEC (9.30-11.50) Prothromb Time International Ratio 0.9 (0.9-1.1) Activated Partial Thromboplast Time 30 SEC (23-33) Sodium Level 148 MMOL/L (136-145) H Potassium Level 4.1 MMOL/L (3.5-5.1) Chloride Level 113 MMOL/L (98-107) H Carbon Dioxide Level 26 MMOL/L (21-32) Anion Gap 9 mmol/L (5-15) Blood Urea Nitrogen 44 mg/dL (7-18) H Creatinine 1.4 MG/DL (0.55-1.30) H Estimat Glomerular Filtration Rate 51.0 mL/min (>60) Glucose Level 94 MG/DL (74-106) Calcium Level 8.6 MG/DL (8.5-10.1) Total Bilirubin 0.5 MG/DL (0.2-1.0) Aspartate Amino Transf (AST/SGOT) 17 U/L (15-37) Alanine Aminotransferase (ALT/SGPT) 36 U/L (12-78) Alkaline Phosphatase 65 U/L (46-116) Troponin I 0.078 ng/mL (0.000-0.056) Pro-B-Type Natriuretic Peptide 724 pg/mL (0-125) H Total Protein 6.8 G/DL (6.4-8.2) Albumin 3.4 G/DL (3.4-5.0) Globulin 3.4 g/dL Albumin/Globulin Ratio 1.0 (1.0-2.7) Odell Lehman MD Sep 19, 2019 15:34
[2019-09-19 15:55] VITALS: BP 140/90
--- NOTE | 2019-09-19 16:24 | Emergency Room Report ---
History of Present Illness General Chief Complaint: Chest Pain Source: Medical Record Present Illness HPI 63-year-old male presents for chest pain. Started about 3 hours ago while at rest. Left-sided, dull, 7 out of 10, radiating down the arm. Also states that he passed out today and hit his head. Denies headache nausea vomiting. States he takes Xarelto. No other aggravating relieving factors. Denies any other associated symptoms Allergies: Coded Allergies: ACETAMINOPHEN (Verified Allergy, Unknown, 09/19/19) HYDROCODONE (Verified Allergy, Unknown, 09/19/19) COVID-19 Screening Contact w/high risk pt: No Recent Travel to affected area: No Experienced COVID-19 symptoms?: No Patient History Past Medical History: HTN, NC, CAD Past Surgical History: none, other - IVC Filter Pertinent Family History: none Social History: Denies: smoking, alcohol use, drug use Immunizations: UTD Reviewed Nursing Documentation: PMH: Agreed; PSxH: Agreed Nursing Documentation-PMH Past Medical History: No History, Except For Hx Cardiac Problems: Yes - NC 2009, 3 stents, triple bypass 2009, high cholesterol Hx Hypertension: Yes Hx Pacemaker: No Hx Asthma: No Hx COPD: No Hx Diabetes: No Hx Cancer: No Hx Gastrointestinal Problems: Yes - Diverticulitis, partial colon removal Hx Dialysis: No Hx Neurological Problems: No Hx Cerebrovascular Accident: No Hx Seizures: No Review of Systems All Other Systems: negative except mentioned in HPI Physical Exam Vital Signs Date Time Temp Pulse Resp B/P (MAP) Pulse Ox O2 Delivery O2 Flow Rate FiO2 09/19/19 13:40 97.2 80 14 152/67 (95) 99 Room Air Sp02 EP Interpretation: reviewed, normal General Appearance: no apparent distress, alert, GCS 15, non-toxic Head: normocephalic, atraumatic Eyes: bilateral eye normal inspection, bilateral eye PERRL ENT: hearing grossly normal, normal pharynx, no angioedema, normal voice Neck: full range of motion, supple/symm/no masses Respiratory: chest non-tender, lungs clear, normal breath sounds, speaking full sentences Cardiovascular #1: regular rate, rhythm, no edema Cardiovascular #2: 2+ carotid (R), 2+ carotid (L), 2+ radial (R), 2+ radial (L) , 2+ dorsalis pedis (R), 2+ dorsalis pedis (L) Gastrointestinal: normal bowel sounds, non tender, soft, non-distended, no guarding, no rebound Rectal: deferred Genitourinary: normal inspection, no CVA tenderness Musculoskeletal: back normal, normal range of motion, gait/station normal, non- tender Neurologic: alert, motor strength/tone normal, oriented x3, sensory intact, responsive, speech normal Psychiatric: judgement/insight normal, memory normal, mood/affect normal, no suicidal/homicidal ideation Reflexes: 3+ bicep (R), 3+ bicep (L), 3+ tricep (R), 3+ tricep (L), 3+ knee (R) , 3+ knee (L) Lymphatic: no adenopathy Medical Decision Making Diagnostic Impression: Primary Impression: ACS (acute coronary syndrome) Additional Impression: Syncope Qualified Codes: R55 - Syncope and collapse ER Course Hospital Course 63-year-old M presents ED s/p syncopal episode. c/o chest pain Differential diagnoses include: NC/unstable angina, arrythmia, dehydration, CVA/ TIA Clinical course Patient placed on stretcher. on quality assurance monitor chassis. After initial history and physical I ordered labs, EKG, chest x-ray, IVFs, CT Brain, Nitro and morphine labs reviewed- no leukocytosis, hemoglobin/hematocrit ok, electrolytes okay, troponins 0.078. EKG- NSR no acute ischemic changes interpreted by me Chest x-ray- no acute process CT brain-unremarkable Dr Johns consulted to see patient Case discussed with Dr. Arango and he agreed to accept the patient to his service for further care and support I. I feel this is a highly complex case requiring extensive working including EKG/Rhythm strip, Xray/CT/US, Blood/urine lab work, repeat exams while in ED, and administration of strong opiates/narcotics for pain control, admission to hospital or close patient follow up. Diagnosis - ACS, syncope admitted to telemetry in serious condition Labs Test 09/19/19 13:48 White Blood Count 4.9 K/UL (4.8-10.8) Red Blood Count 4.31 M/UL (4.70-6.10) Hemoglobin 13.7 G/DL (14.2-18.0) Hematocrit 40.3 % (42.0-52.0) Mean Corpuscular Volume 93 FL (80-99) Mean Corpuscular Hemoglobin 31.9 PG (27.0-31.0) Mean Corpuscular Hemoglobin Concent 34.1 G/DL (32.0-36.0) Red Cell Distribution Width 11.8 % (11.6-14.8) Platelet Count 192 K/UL (150-450) Mean Platelet Volume 7.1 FL (6.5-10.1) Neutrophils (%) (Auto) 54.0 % (45.0-75.0) Lymphocytes (%) (Auto) 30.4 % (20.0-45.0) Monocytes (%) (Auto) 9.1 % (1.0-10.0) Eosinophils (%) (Auto) 4.4 % (0.0-3.0) Basophils (%) (Auto) 2.1 % (0.0-2.0) Prothrombin Time 10.0 SEC (9.30-11.50) Prothromb Time International Ratio 0.9 (0.9-1.1) Activated Partial Thromboplast Time 30 SEC (23-33) Sodium Level 148 MMOL/L (136-145) Potassium Level 4.1 MMOL/L (3.5-5.1) Chloride Level 113 MMOL/L (98-107) Carbon Dioxide Level 26 MMOL/L (21-32) Anion Gap 9 mmol/L (5-15) Blood Urea Nitrogen 44 mg/dL (7-18) Creatinine 1.4 MG/DL (0.55-1.30) Estimat Glomerular Filtration Rate 51.0 mL/min (>60) Glucose Level 94 MG/DL (74-106) Calcium Level 8.6 MG/DL (8.5-10.1) Total Bilirubin 0.5 MG/DL (0.2-1.0) Aspartate Amino Transf (AST/SGOT) 17 U/L (15-37) Alanine Aminotransferase (ALT/SGPT) 36 U/L (12-78) Alkaline Phosphatase 65 U/L (46-116) Troponin I 0.078 ng/mL (0.000-0.056) Pro-B-Type Natriuretic Peptide 724 pg/mL (0-125) Total Protein 6.8 G/DL (6.4-8.2) Albumin 3.4 G/DL (3.4-5.0) Globulin 3.4 g/dL Albumin/Globulin Ratio 1.0 (1.0-2.7) EKG Diagnostic Results Rate: normal Rhythm: NSR ST Segments: no acute changes ASA given to the pt in ED: No - on xarelto Rhythm Strip Diag. Results EP Interpretation: yes Rhythm: NSR, no PVC's, no ectopy Chest X-Ray Diagnostic Results Chest X-Ray Diagnostic Results : Chest X-Ray Ordered: Yes # of Views/Limited/Complete: 1 View Indication: Chest Pain EP Interpretation: Yes Interpretation: no consolidation, no effusion, no pneumothorax, no acute cardiopulmonary disease Impression: No acute disease Electronically Signed by: Electronically signed by Rod Smith MD CT/MRI/US Diagnostic Results CT/MRI/US Diagnostic Results : Imaging Test Ordered: CT Head Impression no acute process Last Vital Signs Date Time Temp Pulse Resp B/P (MAP) Pulse Ox O2 Delivery O2 Flow Rate FiO2 09/19/19 16:04 70 154/103 09/19/19 15:12 97.2 09/19/19 13:55 14 Room Air 09/19/19 13:55 99 Status: improved Disposition: ADMITTED INPATIENT Condition: Serious Referrals: NOT CHOSEN IPA/,REFERRING (PCP) Rod Smith MD Sep 19, 2019 16:24
--- NOTE | 2019-09-19 16:52 | Diagnostic Imaging Report ---
Indication: Chest pain Technique: One view of the chest Comparison: 07/19/2019 Findings: Lungs and pleural spaces are clear. Heart size is normal. The aorta is tortuous and calcified. There are median sternotomy sutures Impression: No acute process
--- NOTE | 2019-09-19 19:07 | NUR ---
HAND-OFF: Report given to REYNA Duque. Patient AAO x4, VSS at this time.
--- NOTE | 2019-09-19 19:15 | NUR ---
ED Nurse Note: Patient is on his cell phone with insurance company expressing his eagernees to transfer to another facility. Will continue to monitor. Patient voided in 2 urinals and placed them on the floor. Urinals emptied in dirty untility. Patient 2 empty juice containers and sandwich container placed in trash bin.
--- NOTE | 2019-09-19 19:30 | NUR ---
ED Nurse Note: Patient expressed pain level 8/10 described as radiating down the right side of his body.
[2019-09-19 19:44] VITALS: BP 150/82
--- NOTE | 2019-09-19 20:30 | NUR ---
ED Nurse Note: Patient given 2 additional sandwiches, per request since cafeteria is closed. Will continue to monitor patient for bed assignment. Patient has no complaints at this time.
--- NOTE | 2019-09-19 21:30 | NUR ---
ED Nurse Note: Patient is relaxing and has no requests at this time. Patient reports pain level at a 5-6 but tolerable. Will continue to monitor for bed assigment.
--- NOTE | 2019-09-19 22:19 | NUR ---
ED Nurse Note: Called and gave report to Martha ORELLANA.
--- NOTE | 2019-09-19 22:37 | NUR ---
ED Nurse Note: Patient transported to floor without incident. $73.00 verified at bedside along with receiving RN
[2019-09-19 22:45] VITALS: BP 134/80
--- NOTE | 2019-09-19 22:45 | NUR ---
NURSE NOTES: Pt arrived via gurney with [employer] MARKER MACHINE and ER bicycle service technician. Skin intact. Belongings with patient - including white iPad and $73 in barnes (three $20, one $10, and three $3) which patient refuses to place in safe, verbalized and educated on risk of keeping at bedside by RN. engine monitor applied - Sinus Rhythm. VS stable. Bed in lowest position, call light and belongings within reach.
--- NOTE | 2019-09-19 23:15 | NUR ---
NURSE NOTES: RN contacted Dr. Arango for admission orders. Per Dr. Arango: - Low Sodium Diet - Full code - Ambulation for DVT prophylaxis - Do Troponin in AM - Carotid Vertebral Duplex in AM - Physician Consult - [place] for cardio - Continue home meds - Order Ntg 0.4 mg SL q5m for chest pain - Morphine 1 mg q6h for pain Will carry out orders accordingly.
[2019-09-19] MEDS ORDERED: SERTRALINE HCL100 MG PO (23:28)
[2019-09-20] VITALS: BP 132/74
--- NOTE | 2019-09-20 00:15 | Consultation ---
DATE OF CONSULTATION: 09/19/2019 CARDIOLOGY CONSULTATION CONSULTING PHYSICIAN: Odell Lehman M.D. REFERRING PHYSICIAN: Caio Arango M.D. REASON FOR CONSULTATION: Chest pain. HISTORY OF PRESENT ILLNESS: Patient is a 63-year-old gentleman, I am quite familiar with from his previous admission 2 months ago. Patient has history of hypertension and coronary artery disease with history of 2 prior stents as well as bypass in 2009. Patient states that his last stent was 2 years ago at [facility]. Patient at that admission had minimal troponin elevation, underwent a nuclear stress test that showed no evidence of ischemia or scar. Patient presented to the emergency room complaining of chest pain again. His troponin was mildly elevated at 0.078 and a Cardiology consultation was obtained for further evaluation and management. REVIEW OF SYSTEMS: Thoroughly performed and was negative other than what is mentioned in history of present illness. PAST MEDICAL HISTORY: As mentioned above. FAMILY HISTORY: Noncontributory. SOCIAL HISTORY: He lives at home. Does not smoke or drink alcohol. PHYSICAL EXAMINATION: VITAL SIGNS: Show blood pressure of 155/94, pulse is 82, respirations 18, temperature 97.2. HEAD AND NECK: Showed no JVD. LUNGS: Clear. CARDIOVASCULAR: Shows regular S1 and S2 with no gallop or murmur. ABDOMEN: Soft and nontender. EXTREMITIES: No pitting edema. SKIN: Has scar of the sternotomy and that has healed. LABORATORY AND DIAGNOSTIC DATA: His labs show sodium 148, potassium 4.1, BUN of 44, creatinine 1.4, and glucose of 94. Troponin is 0.078. White count is 4.9, hemoglobin 13.7, hematocrit of 40, and platelet count is 192. ASSESSMENT AND PLAN: 1. Chest pain and troponin leak. Troponin level is less than the previous admission on 07/22/2019. At that time, patient underwent a nuclear stress test that showed no evidence of ischemia or scar. We will repeat the cardiac enzymes in the morning and repeat the EKG and echocardiogram. In the meantime, resume aspirin and Lopressor 25 mg b.i.d. 2. History of DVT, status post IVC filter, on Xarelto 20 mg daily. 3. Hypertension. Resume metoprolol 25 b.i.d., Norvasc 10 daily, Lasix 40 mg daily. 4. Status post multiple abdominal surgeries. Thank you very much, Dr. Arango, for allowing me to participate in the care of this patient. Please do not hesitate to contact me for any questions regarding my evaluation. The case was discussed with the ER physician as well. Odell Lehmna M.D. DR: MONSERRAT JOB#: [id number] CC:
[2019-09-20] MEDS ORDERED: Morphine Sulfate 2mg/ml Inj(IV/IM USE ONLY) IVP PRN (01:15)
[2019-09-20 04:00] VITALS: BP 132/68
[2019-09-20] MEDS: Nitroglycerin Subl 0.4mg tab SL PRN (07:06)
--- NOTE | 2019-09-20 07:11 | NUR ---
NURSE NOTES: Pt complained of 7/10 chest pain radiating to Right arm, Nitroglycerin given for relief, Morphine too close to be given. Vital signs - 136/88, 74 HR, 95% placed on 1L O2. Endorsed to Dr. Arango and Dr. Lehman, currently awaiting call back.
--- NOTE | 2019-09-20 07:38 | NUR ---
NURSE NOTES: Per Dr. Lehman, change Morphine 1 mg IVP q6h to q4h instead. Continue to monitor pt.
--- NOTE | 2019-09-20 07:45 | NUR ---
HAND-OFF: Report given to REYNA Byrd.
[2019-09-20 08:00] VITALS: BP 132/80
--- NOTE | 2019-09-20 08:00 | NUR ---
NURSE NOTES: Report received from Aaron RN. Patient is observed in bed, awake, alert, and oriented with periods of forgetfulness. Respiratory even and unlabored. IV site is asymptomatic, patent, and intact. Bed is in lowest position with side rails up x2 and brakes are engaged. Bed alarm is on. Encouraged pt to use call light when in need of assistance, pt verbalized understanding. Will continue to monitor.
[2019-09-20] MEDS ORDERED: Aspirin Baby 81mg ORAL SCH (09:00)
[2019-09-20] MEDS ORDERED: Furosemide 40mg tab ORAL SCH (09:00)
[2019-09-20] MEDS ORDERED: Furosemide 80mg tab ORAL SCH (09:00)
[2019-09-20] MEDS: Atorvastatin 20mg tab ORAL SCH ×2 (09:31→21:50)
[2019-09-20] MEDS: Sertraline 100mg tab ORAL SCH (09:31)
[2019-09-20] MEDS: Xarelto 10mg tab ORAL SCH (09:32)
[2019-09-20] MEDS: Aspirin EC 81mg tab ORAL SCH (09:34)
--- NOTE | 2019-09-20 09:36 | Diagnostic Imaging Report ---
EXAM: US Duplex Bilateral Extracranial Arteries CLINICAL HISTORY: CP TECHNIQUE: Real-time duplex ultrasound scan of the extracranial arteries integrating B-mode two-dimensional vascular structure, Doppler spectral analysis and color flow Doppler imaging. COMPARISON: No relevant prior studies available. FINDINGS: Right common carotid artery: Unremarkable. No occlusion or significant stenosis on color flow and spectral Doppler imaging. Right internal carotid artery: Unremarkable. No occlusion or significant stenosis on color flow and spectral Doppler imaging. Right external carotid artery: Unremarkable. No occlusion or significant stenosis on color flow and spectral Doppler imaging. Right vertebral artery: Unremarkable. Antegrade flow. Right ICA/CCA ratio: Unremarkable. Within normal limits. Left common carotid artery: Unremarkable. No occlusion or significant stenosis on color flow and spectral Doppler imaging. Left internal carotid artery: Unremarkable. No occlusion or significant stenosis on color flow and spectral Doppler imaging. Left external carotid artery: Unremarkable. No occlusion or significant stenosis on color flow and spectral Doppler imaging. Left vertebral artery: Unremarkable. Antegrade flow. Left ICA/CCA ratio: Unremarkable. Within normal limits. Lymph nodes: Unremarkable. No lymphadenopathy. CAROTID STENOSIS REFERENCE USING SRU CRITERIA: Mild - <50% stenosis. ICA PSV is less than 125 cm/second and plaque or intimal thickening is visible. Moderate - 50-69% stenosis. ICA PSV is 125 to 230 cm/second and plaque is visible. Severe - 70-94% stenosis. ICA PSV is more than 230 cm/second and visible plaque with lumen narrowing is seen. Near occlusion - 95-99% stenosis. ICA PSV is variable and significant plaque with luminal narrowing is seen. Occluded - 100% stenosis. No flow identified. IMPRESSION: Normal duplex ultrasound of the neck.
[2019-09-20 09:50] LABS: CHLORIDE 108 MMOL/L (98-107); POTASSIUM 3.9 MMOL/L (3.5-5.1); SODIUM 145 MMOL/L (136-145)
[2019-09-20 10:11] LABS: ANION GAP 14 mmol/L (5-15); BLOOD UREA NITROGEN 31 mg/dL (7-18); CALCIUM 9.4 MG/DL (8.5-10.1); CARBON DIOXIDE 23 MMOL/L (21-32); CHOLESTEROL 187 MG/DL (< 200); CREATININE 1.1 MG/DL (0.55-1.30); HDL CHOLESTEROL 51 MG/DL (40-60); TRIGLYCERIDES 98 MG/DL (30-150)
--- NOTE | 2019-09-20 10:30 | NUR ---
NURSE NOTES: Notified Dr. Lehman regarding increase in troponin level. Also notified Dr. Lehman regarding duplicate order of furosemide in different doses, awaiting call back.
[2019-09-20 12:00] VITALS: BP 140/92
[2019-09-20] MEDS: Morphine Sulfate 2mg/ml Inj(IV/IM USE ONLY) IVP PRN ×2 (14:21→22:38)
--- NOTE | 2019-09-20 14:51 | Cardiac Electrophysiology PN ---
Assessment/Plan Assessment/Plan 1. Troponin leak in a patient with history of CABG in [place] in 2013 and multiple stents. Troponins are flat and low level. His EKG does not show any ST elevation. Last stress test 06/2019 at [place] showed no ischemia. ECho showed EF 55%. On aspirin 81 mg daily and metoprolol 25 mg b.i.d. and Lipitor 40. 2. History of recurrent DVT, status post IVC filter and Xarelto 20 mg daily. 3. Hypertension on metoprolol 25 b.i.d., Norvasc 10 mg daily and Lasix 40 mg p.o. daily. 4. History of multiple abdominal surgeries. ETHAN RN Subjective Subjective Feeling better. No CP. Echo showed EF 55% Objective Last 24 Hour Vital Signs Date Time Temp Pulse Resp B/P (MAP) Pulse Ox O2 Delivery O2 Flow Rate FiO2 09/20/19 12:00 97.2 65 18 140/92 (108) 96 09/20/19 11:41 67 09/20/19 09:32 73 132/80 09/20/19 09:31 73 132/80 09/20/19 09:00 Room Air 09/20/19 08:02 70 09/20/19 08:00 97.4 73 18 132/80 (97) 96 09/20/19 07:06 132/68 09/20/19 04:00 67 09/20/19 04:00 98.0 71 18 132/68 (89) 95 09/20/19 00:00 97.8 84 18 132/74 (93) 94 09/20/19 00:00 67 09/19/19 22:56 Room Air 09/19/19 22:45 97.5 71 17 134/80 (98) 94 09/19/19 22:37 71 09/19/19 22:30 97.0 81 18 143/82 93 Room Air 09/19/19 20:50 74 143/82 09/19/19 20:00 97.0 09/19/19 19:44 97.0 81 18 150/82 93 Room Air 09/19/19 16:04 70 154/103 09/19/19 15:55 97.9 69 20 140/90 99 Room Air 09/19/19 15:12 97.2 Intake and Output 09/19/19 09/20/19 19:00 07:00 Intake Total 540 ml Balance 540 ml Intake Oral 540 ml # Voids 1 2 # Bowel Movements 1 Laboratory Tests Test 09/20/19 06:00 Sodium Level 145 MMOL/L (136-145) Potassium Level 3.9 MMOL/L (3.5-5.1) Chloride Level 108 MMOL/L (98-107) H Carbon Dioxide Level 23 MMOL/L (21-32) Anion Gap 14 mmol/L (5-15) Blood Urea Nitrogen 31 mg/dL (7-18) H Creatinine 1.1 MG/DL (0.55-1.30) Estimat Glomerular Filtration Rate > 60 mL/min (>60) Glucose Level 77 MG/DL (74-106) Calcium Level 9.4 MG/DL (8.5-10.1) Troponin I 0.084 ng/mL (0.000-0.056) Pro-B-Type Natriuretic Peptide 757 pg/mL (0-125) H Triglycerides Level 98 MG/DL (30-150) Cholesterol Level 187 MG/DL (< 200) LDL Cholesterol 113 mg/dL (<100) H HDL Cholesterol 51 MG/DL (40-60) Cholesterol/HDL Ratio 3.7 (3.3-4.4) Objective HEAD AND NECK: Showed no JVD. LUNGS: Clear. CARDIOVASCULAR: Shows regular S1 and S2 with no gallop or murmur. ABDOMEN: Soft and nontender. EXTREMITIES: No pitting edema. SKIN: Has scar of the sternotomy and that has healed. Odell Lehman MD Sep 20, 2019 14:51
--- NOTE | 2019-09-20 14:51 | NUR ---
NURSE NOTES: Dr. Lehman at bedside. Per MD, change IV lasix back to PO lasix 40mg. Will carry out order.
[2019-09-20] MEDS ORDERED: Lexiscan 0.4mg/5ml syringe IV PRN (15:00)
[2019-09-20 16:00] VITALS: BP 128/81
--- NOTE | 2019-09-20 19:20 | NUR ---
HAND-OFF: Report given to Michelle ORELLANA. Endorsed plan of care.
--- NOTE | 2019-09-20 19:28 | NUR ---
NURSE NOTES: Received report from REYNA Byrd. Patient is awake lying semi-ashby's; resting comfortably. No signs of acute distress noted; complains of pain. AOx3; able to make needs known with periods of forgetfulness. Ambulates with some supervision. IV site noted to be dislodged. Will re-attempt to re-insert IV access at a later time. Bed at lowest position, brakes on, siderails up x3. Call light within reach. Will continue to monitor.
[2019-09-20 20:00] VITALS: BP 135/65
[2019-09-21] VITALS: BP 144/90
--- NOTE | 2019-09-21 01:42 | Progress Note ---
DATE: 09/20/2019 SUBJECTIVE: This is an elderly male complaining of some anxiety and chest pain. The patient has chest pain this morning, given nitroglycerin and morphine. The patient currently is still feeling uncomfortable, but no chest pain, no palpitation. PHYSICAL EXAMINATION: GENERAL: This is a middle-aged male, currently comfortable. VITAL SIGNS: Blood pressure is 134/90, pulse 74, respirations 18. HEENT: NAD. CHEST: Bilaterally clear. CARDIOVASCULAR: Regular rhythm. No gallop. No murmur. ABDOMEN: Soft. EXTREMITIES: CCE. NEUROLOGICAL: The patient is in no focal deficit. GENITOURINARY: Deferred. LABORATORY AND DIAGNOSTIC DATA: The patient has no labs today. His troponins are negative. ASSESSMENT: 1. Acute coronary syndrome. 2. Syncope. 3. Hypertension. 4. Anxiety. PLAN: We will currently continue aspirin. Continue Xarelto. Continue current treatment. Cardiology is on consult. His echo shows EF is 55%. We will consider Cardiology consult and Cardiology clearance. Navneet Arango M.D. DR: OTTO JOB#: [id number] CC:
[2019-09-21 04:00] VITALS: BP 159/95
--- NOTE | 2019-09-21 07:16 | NUR ---
HAND-OFF: Report given to REYNA Conroy. Patient is asleep lying semi-ashby's; resting comfortably. In stable condition.
[2019-09-21 08:00] VITALS: BP 143/85
[2019-09-21] MEDS: Nitroglycerin Subl 0.4mg tab SL PRN ×2 (08:37→11:07)
[2019-09-21] MEDS: Furosemide 40mg tab ORAL SCH (08:44)
[2019-09-21] MEDS: Atorvastatin 20mg tab ORAL SCH ×2 (08:45→21:12)
[2019-09-21] MEDS: Sertraline 100mg tab ORAL SCH (08:45)
[2019-09-21] MEDS: Aspirin EC 81mg tab ORAL SCH (08:45)
[2019-09-21] MEDS: Xarelto 10mg tab ORAL SCH (08:45)
[2019-09-21 11:23] VITALS: BP 129/71
[2019-09-21 15:55] VITALS: BP_SYST 145; BP_SYST 175; BP_DIAS 83; BP_DIAS 96
--- NOTE | 2019-09-21 19:47 | NUR ---
NURSE NOTES: Received report from REYNA Conroy. Patient is awake lying semi-ashby's; resting comfortably. No signs of acute distress noted; complains of pain. AOx3; able to make needs known with periods of forgetfulness. Ambulates with some supervision. Checked IV site; patent and flushed. No erythema, bleeding, or infiltration noted. Bed at lowest position, brakes on, siderails up x3. Call light within reach. Will continue to monitor.
[2019-09-21 20:00] VITALS: BP 128/74
[2019-09-21] MEDS: Morphine Sulfate 2mg/ml Inj(IV/IM USE ONLY) IVP PRN (21:21)
[2019-09-22] VITALS: BP 133/83
--- NOTE | 2019-09-22 00:44 | Progress Note ---
DATE: 09/21/2019 SUBJECTIVE: This is a young 63-year-old white male came to the emergency room for chest pain and syncope. The patient is physically doing better. PHYSICAL EXAMINATION: VITAL SIGNS: Stable. CHEST: Bilaterally clear. CARDIOVASCULAR: Regular rhythm. ABDOMEN: Soft. EXTREMITIES: CCE. ASSESSMENT: 1. Chest pain, rule out of NV. 2. Syncope. 3. Hypertension. 4. Atrial fibrillation. PLAN: Continue current treatment. Cardiology is on case. Navneet Arango M.D. DR: Yan JOB#: [id number] CC:
--- NOTE | 2019-09-22 03:37 | NUR ---
NURSE NOTES: Patient is asleep lying semi-ashby's; resting comfortably. No signs of acute distress or pain noted at this time.
[2019-09-22 04:00] VITALS: BP 128/71
--- NOTE | 2019-09-22 07:12 | NUR ---
HAND-OFF: Report given to REYNA Juan. Patient is awake lying semi-ashby's; resting comfortably. Endorsed to oncoming shift RN regarding patient's stress test procedure later today; verbalized understanding.
[2019-09-22 08:00] VITALS: BP 134/87
--- NOTE | 2019-09-22 08:36 | NUR ---
NURSE NOTES: Pt in bed in low position, Hob in semi-fowlers, pt denies pain, Ox4 calm and cooperative, pt scheduled for stress test, Iv was infiltrated and another was started, pt has been NPO, and will be picked up at 1000hrs to test. Md Arango stated if the test comes back negative pt can be discharged pending Dr Lehman's stand point
[2019-09-22] MEDS: Sertraline 100mg tab ORAL SCH (09:55)
[2019-09-22] MEDS: Aspirin EC 81mg tab ORAL SCH (09:55)
[2019-09-22] MEDS: Furosemide 40mg tab ORAL SCH (09:55)
[2019-09-22] MEDS: Xarelto 10mg tab ORAL SCH (09:55)
[2019-09-22] MEDS: Atorvastatin 20mg tab ORAL SCH (09:55)
[2019-09-22 12:00] VITALS: BP 132/84
--- NOTE | 2019-09-22 14:54 | Cardiac Electrophysiology PN ---
Assessment/Plan Assessment/Plan 1. Troponin leak in a patient with history of CABG in [place] in 2013 and multiple stents. Troponins are flat and low level. His EKG does not show any ST elevation. Last stress test 06/2019 at [facility] showed no ischemia. Echo showed EF 55%. On aspirin 81 mg daily and metoprolol 25 mg b.i.d. and Lipitor 40. Stress test results pending 2. Recurrent DVT, status post IVC filter, on Xarelto 20 mg daily. 3. Hypertension on metoprolol 25 b.i.d., Norvasc 10 mg daily and Lasix 40 mg p.o. daily. 4. History of multiple abdominal surgeries. DW RN Subjective Subjective Feeling better. No CP. Echo showed EF 55%. Had stress test today. Results pending Objective Last 24 Hour Vital Signs Date Time Temp Pulse Resp B/P (MAP) Pulse Ox O2 Delivery O2 Flow Rate FiO2 09/22/19 09:55 60 134/87 09/22/19 09:55 60 134/87 09/22/19 08:00 98.7 60 20 134/87 (103) 97 09/22/19 04:00 98.0 61 20 128/71 (90) 96 09/22/19 04:00 53 09/22/19 00:00 58 09/22/19 00:00 98.1 60 20 133/83 (100) 95 09/21/19 21:00 Room Air 09/21/19 20:00 98.1 66 22 128/74 (92) 97 09/21/19 20:00 70 09/21/19 15:55 97.5 84 16 145/83 (103) 97 09/21/19 15:54 81 Intake and Output 09/21/19 09/22/19 19:00 07:00 Intake Total 500 ml 245 ml Balance 500 ml 245 ml Intake Oral 500 ml 245 ml # Voids 3 2 # Bowel Movements 1 Objective HEAD AND NECK: Showed no JVD. LUNGS: Clear. CARDIOVASCULAR: Shows regular S1 and S2 with no gallop or murmur. ABDOMEN: Soft and nontender. EXTREMITIES: No pitting edema. SKIN: Has scar of the sternotomy and that has healed. Odell Lehman MD Sep 22, 2019 14:54
--- NOTE | 2019-09-22 15:59 | Diagnostic Imaging Report ---
Indications: Chest pain, prior history of CABG Technique: Single day single isotope protocol utilized. Initially, resting images obtained using IV administration 10.5 millicuries 99M technetium Myoview. Subsequently, patient underwent lexiscan stress testing. See cardiology report for details. During infusion, IV administration 28.5 mCi 99m technetium Myoview. SPECT and planar images obtained. SPECT images gated to 8 phases of the cardiac cycle were also obtained, and reformatted into cine images for evaluation of ejection fraction. Comparison: 07/23/2019 Findings: Per cardiology report, patient experienced no symptoms during infusion. Per cardiology report, resting EKG demonstrates normal sinus rhythm. Presence or absence of symptoms during infusion is not described in the cardiology report. Imaging demonstrates no definite fixed nor reversible poststress perfusion defects. The left ventricle is mildly dilated. Calculated post stress ejection fraction 46%. No definite focal wall motion abnormality Compared to prior exam, no significant interim change on imaging. The ejection fraction has decreased since previous value of 37% Impression: Nonischemic clinical response to pharmacologic stress, per cardiology report Nonischemic electrocardiographic response to pharmacologic stress, per cardiology report No imaging findings to suggest ischemia, at level of stress achieved. Calculated post stress ejection fraction 46%, decreased from previous value of 57%
[2019-09-22 16:00] VITALS: BP 136/76
--- NOTE | 2019-09-23 06:29 | Progress Note ---
DATE: 09/22/2019 SUBJECTIVE: The patient is a 63-year-old male, currently doing better nuclear stress test. His troponins are positive. The patient is asymptomatic. OBJECTIVE: VITAL SIGNS: Blood pressure is 140/90, pulse 64, respirations 18. HEENT: NAD. CHEST: Bilaterally clear. CARDIOVASCULAR: Regular rhythm. No gallop. No murmur. ABDOMEN: Soft. Positive bowel sounds. EXTREMITIES: No CCE. NEUROLOGICAL: The patient has generalized weakness. ASSESSMENT: 1. Acute coronary syndrome. 2. Coronary artery disease. 3. Atrial fibrillation. 4. Obesity. 5. . 6. Sepsis. PLAN: . Continue current treatment. Repeat nuclear stress test is negative. . Navneet Arango M.D. DR: OMERO JOB#: [id number] CC:
--- NOTE | 2019-09-23 13:56 | Discharge Summary ---
Discharge Summary Discharge Summary _ DATE OF ADMISSION: 09/19/2019 DATE OF DISCHARGE: 09/22/2019 DISCHARGED BY: Dr. Arango REASON FOR ADMISSION: 63 years old male with past medical history of hypertension, coronary artery disease, status post OR, status post IVC filter, history of triple coronary artery bypass graft tr, PAF, on anticoagulation therapy with Xarelto, history of recurrent DVT lower extremity ,status post IVC filter, depression, right total knee replacement, presented for evaluation due to chest pain. Onset happened about 3 hours prior to presentation to ER , while he was at rest. Chest pain described as dull ,7 out of 10, left-sided ,radiating down his arm. Patient also reported that he passed out earlier that day and hit his head. He denied headache, nausea and vomiting. Patient reported taking Xarelto a every day. No history of bleeding. Upon evaluation vital signs were stable . Laboratory work-up revealed WBC 4.9, hemoglobin 13.7, hematocrit 40.3 ,platelet count 192. INR 0.9. Sodium 141 , potassium 4.1. BUN 44, creatinine 1.4. Glucose 94. Troponin 0.078, pro BNP 724. EKG revealed sinus rhythm no acute ischemic changes. Chest x-ray revealed no acute cardiopulmonary pathology. CT of the head demonstrated mild age-related volume loss but no evidence of acute intracranial bleeding or mass-effect. Patient subsequently admitted for chest pain /ACS and syncopal episode. CONSULTANTS: chaplain resident Dr Wright HOSPITAL COURSE: Patient admitted to telemetry floor. Branch Operations Coordinator followed. Echocardiogram demonstrated preserved ejection fraction of 65% with mild left ventricular hypertrophy. No evidence of wall motion abnormalities to the extent visualized. Mild mitral regurgitation. Significant left ventricular diastolic dysfunction grade 2. Right ventricular systolic pressure of 27. Second troponin at the same range -0.084. Patein was on Aspirin and beta blockage. Patient subsequently undergone myocardial perfusion scan test , which revealed no imaging to suggest ischemia at the level of stress achieved. Calculated poststress ejection fraction was 46% decreased from the previous value of 57. Diuresis with Lasix continued. Volumes and renal parameters were closely monitored. Blood pressure was managed with calcium channel francisco, beta-francisco and Lasix, and remained stable. Carotid duplex was unremarkable. Lipid panel revealed elevated LDL 113. Statin continued. Patient was counseled on low-fat low-cholesterol diet. Patient with history of recurrent DVT, status post IVC filter , continued on Xarelto. Hemoglobin and hematocrit remained stable, no evidence of bleeding. Pulse oximetry was stable on room air. Pain management was addressed as needed. Chest pain resolved. Patient clinically stabilized and was stable for discharge home. FINAL DIAGNOSES: Possible acute coronary syndrome Coronary artery disease, status post CABG and OR, status post multiple stents Recurrent DVT , status post IVC filter Paroxysmal atrial fibrillation Syncopal episode Obesity Hypertension DISCHARGE MEDICATIONS: See Medication Reconciliation list. DISCHARGE INSTRUCTIONS: Patient was discharged home. Outpatient follow-up with primary care provider over the phone or in the office in 1 week. I have been assigned to dictate discharge summary for this account. I was not involved in the patient's management. Linda Rodney NP Sep 23, 2019 13:56
== END 2019-09-22 18:30 | disposition home or self-care (01) | DRG 311 ==
LOC: EMR 14:18 → 2E 14:30 → EDBEDREQ 21:49
DX: I24.9 Acute ischemic heart disease, unspecified (principal); Z88.6 Allergy status to analgesic agent; I10 Essential (primary) hypertension; I25.10 Atherosclerotic heart disease of native coronary artery without angina pectoris; Z95.5 Presence of coronary angioplasty implant and graft; Z95.1 Presence of aortocoronary bypass graft; Z86.718 Personal history of other venous thrombosis and embolism; Z95.828 Presence of other vascular implants and grafts; E66.9 Obesity, unspecified
CPT/HCPCS: 36415; 70450; 71045; 78452; 80048; 80053; 80061; 83880; 84484; 85025; 85610; 85730; 93005; 93017; 93306; 93880; 96374; 96376; 99285; J2785

== ENCOUNTER 2020-02-03 09:54 | Inpatient (IN) | payer MEDICARE, MEDICAID ==
[~2020-02-03] VITALS: Ht 170.2 cm; Wt 105.0 kg
[~2020-02-03 09:54] MED LIST changes: +LIPITOR20 MG ORAL; +POTASSIUM CHLO10 MEQ ORAL; +SERTRALINE HCL100 MG PO; +ZOLOFT25 MG ORAL
[2020-02-03 10:21] VITALS: BP 148/87
[2020-02-03] MEDS ORDERED: Nitroglycerin 2% oint pkt TOPIC ONE (10:30)
[2020-02-03 10:34] LABS: BASOPHILS % (AUTO) 1.1 % (0.0-2.0); EOSINOPHILS % (AUTO) 1.1 % (0.0-3.0); HEMATOCRIT 41.5 % (42.0-52.0); HEMOGLOBIN 13.8 G/DL (14.2-18.0); MEAN CORPUSCULAR VOLUME 94 FL (80-99); MONOCYTES % (AUTO) 6.5 % (1.0-10.0); NEUTROPHILS % (AUTO) 75.3 % (45.0-75.0); PLATELET COUNT 161 K/UL (150-450); RED BLOOD COUNT 4.43 M/UL (4.70-6.10); RED CELL DISTRIBUTION WIDTH 11.8 % (11.6-14.8); WHITE BLOOD COUNT 5.7 K/UL (4.8-10.8)
[2020-02-03 10:57] LABS: ANION GAP 10 mmol/L (5-15); BLOOD UREA NITROGEN 20 mg/dL (7-18); CALCIUM 8.9 MG/DL (8.5-10.1); CARBON DIOXIDE 24 MMOL/L (21-32); CHLORIDE 110 MMOL/L (98-107); CREATININE 1.2 MG/DL (0.55-1.30); POTASSIUM 3.4 MMOL/L (3.5-5.1); SODIUM 144 MMOL/L (136-145)
[2020-02-03 11:02] LABS: ALANINE AMINOTRANSFERASE 20 U/L (12-78); ALBUMIN 3.6 G/DL (3.4-5.0); ALBUMIN/GLOBULIN RATIO 1.1 (1.0-2.7); ALKALINE PHOSPHATASE 54 U/L (46-116); ASPARTATE AMINO TRANSFERASE 17 U/L (15-37); BILIRUBIN,TOTAL 0.8 MG/DL (0.2-1.0)
--- NOTE | 2020-02-03 11:29 | Emergency Room Report ---
History of Present Illness General Chief Complaint: Chest Pain Source: Patient Present Illness HPI 64-year-old male with past medical history of CAD s/p stent x 2 on Plavix, CABG , recurrent PE/DVT s/p IVC filter, afib, HTN, dyslipidemia, ruptured diverticulitis s/p EX LAP depression presents s/p presyncopal episode. Patient states he started feeling dizzy yesterday around noon. This morning woke up with left-sided substernal chest pressure radiating to the left upper extremity that prompted him to come to ED. States that he fell to the ground and may have hit his head on the carpet. Questionable LOC. Denies vision changes, focal weakness, nausea, vomiting, diarrhea, melena, hematochezia, neck pain, back pain, abdominal pain. The patient's symptoms were gradual onset, severity was moderate, duration since 2 days. Quality: Pressure Did not take aspirin this morning Past medical history: Hypertension, dyslipidemia, CAD, history of NC, diverticulitis, A. fib Past surgical history: Stent x2, exploratory laparotomy, IVC filter, CABG Smoking: Denies Alcohol use: Denies Drug use: Denies Review of systems: CONST: No fevers or chills, No night sweats PULMONARY: No productive cough, No shortness of breath CARDIAC: + chest pain, No palpitations GI: No vomiting, No diarrhea , No melena_or_BRBPR : No dysuria, No hematuria, No discharge NEURO: No new_focal_weakness_or_numbness, No confusion, No vision changes 14 point Review of Systems is otherwise negative except per HPI Physical Exam: GENERAL: Awake_alert_ nontoxic, no acute distress Spo2 93% on RA -normal EYES: Extraocular muscles are intact. Conjunctivae clear. Lids without swelling ENT: External nose and ear normal_in_appearance. Oropharynx clear. Head_ atraumatic, Moist_oral_mucosa NECK: No JVD. No meningismus. No thyromegaly. Supple. Trachea midline RESP: Normal respiratory effort. Symmetric rise. No stridor. Clear_to_ auscultation_No_rales_No_wheezes CARDIAC: Regular rate and regular rhytm. No_significant pedal edema. ABDOMEN: Soft. Nondistended. Nontender_No_rebound_or_guarding. LLQ ecchymosis. No flank ecchymosis. No CVA TTP. MSK: Normal muscle tone, without rigidity. Extremities without asymmetric deformity or swelling. SKIN: Warm and dry. No visible cyanosis or pallor NEUROLOGIC: Alert, oriented x3. Motor_and_sensation_grossly_intact. No truncal ataxia. Gait_normal Psych: Normal mood and affect, normal judgment and insight - COORDINATION OF CARE Case was discussed with: Patient , Patient's Physician Any labs and imaging that were ordered were interpreted as part of the medical decision making: Medical Decision Making/Plan: Differential diagnosis includes acute myocardial infarction, acute coronary syndrome and unstable angina, pulmonary embolism, pneumothorax, pneumonia, and aortic dissection, among others. Patient is currently well appearing with stable vitals. EKG shows normal sinus rhythm with left anterior fascicular block. No evidence of STEMI. Initial troponin is elevated at 0.08. Renal function is WNL. Chest xray shows previous CABG and Left greater than right pleural effusion. No evidence of pneumothorax or lobar pneumonia.. CT of the head is negative for ICH. Aspirin and nitroglycerin were given. However, given that chest pain is currently resolved, risks likely outweigh benefits of IV heparin at this time, so deferred. The pain is not classic for pericarditis or myocarditis, and the patient has no significant risk factors for a pericardial effusion and has stable vitals signs , unlikely to have tamponade. Pain is not likely to be pulmonary embolism, patient has no significant PE risk factors. The presentation is not consistent with dissection, pain is not severe, radiating to back, or tearing in nature. Has normal bilateral radial and pedal pulses. This patient appears to be a suitable candidate for transfer to telemetry floor at this time with orders from the admitting physician who is aware of the patient's evaluation, ancillary test findings, and current condition, and agrees with treatment and disposition. I spoke with Dr. Dawn, and reviewed the patients presentation, workup, results, and treatment. They will admit the patient for further care and evaluation, and assume care of the patient at this time. Allergies: Coded Allergies: ACETAMINOPHEN (Verified Allergy, Unknown, 09/19/19) HYDROCODONE (Verified Allergy, Unknown, 09/19/19) COVID-19 Screening Contact w/high risk pt: No Recent Travel to affected area: No Experienced COVID-19 symptoms?: No COVID-19 Testing performed [employer] COACH: No Nursing Documentation-PMH Hx Cardiac Problems: Yes - bypass Hx Hypertension: Yes Hx Pacemaker: No Hx Asthma: No Hx COPD: No Hx Diabetes: No Hx Cancer: No Hx Gastrointestinal Problems: No - diverticulosis Hx Dialysis: No Hx Neurological Problems: No Hx Cerebrovascular Accident: No Hx Seizures: No Hx Syncope: Yes Physical Exam Vital Signs Date Time Temp Pulse Resp B/P (MAP) Pulse Ox O2 Delivery O2 Flow Rate FiO2 02/03/20 10:08 98.8 79 20 148/87 (107) 98 Room Air Sp02 EP Interpretation: reviewed, normal Procedures Critical Care Time Critical Care Time Critical Care Statement Organ systems at risk include: [cardiac / circulatory] Critical care performed for 45 minutes. Time is exclusive of separately billable procedures. Time includes: direct patient care, continuous monitoring and multiple patient reassessment, coordination of patient care, review of patient's medical records , medical consultation, family consultation regarding treatment decisions and documentation of patient care. Medical Decision Making Diagnostic Impression: Primary Impression: NSTEMI (non-ST elevated myocardial infarction) Additional Impressions: CAD (coronary artery disease) Presence of IVC filter Personal history of DVT (deep vein thrombosis) Dyslipidemia Chest pain Syncope Closed head injury ACS (acute coronary syndrome) HTN (hypertension) History of CVA (cerebrovascular accident) EKG Diagnostic Results SAMANTHA Mayibjean marie Mccullough 12-lead EKG (interpreted by ) Time: 958 Indication: Rhythm analysis Tracing visualized and Interpreted by me. Rhythm: Normal sinus rhythm Rate: 76 bpm QTc: 436 Morphology: No_significant_ST_elevations_or_depressions, No STEMI Impression: Normal_sinus_rhythm_without_significant_abnormality Rhythm Strip Diag. Results Rhythm Strip Time: 11:28 EP Interpretation: yes Rate: 75 Rhythm: NSR, no PVC's, no ectopy Chest X-Ray Diagnostic Results Chest X-Ray Diagnostic Results : SAMANTHA Mayibe Sadia Chest X-Ray: Views: 1 view(s) Indication: Chest pain Findings: See below Impression: CABG. Cardiomegaly. No wide mediastinum. Left greater than right pleural effusion The X-ray(s) were independently viewed and interpreted contemporaneously Electronically signed by , Angelita Garland, CT/MRI/US Diagnostic Results CT/MRI/US Diagnostic Results : Impression CT Head no Contrast Indication: Blurred vision, status post fall Findings: There is age-related enlargement of the extra-axial CSF spaces. Ventricles are normal in size. No acute intracranial hemorrhage or edema. No mass effect nor midline shift. Normal peguero-white differentiation. Small deep white matter lacunar infarct is seen in the left frontal region. The calvaria is intact. Visualized and sinuses are unremarkable. There is evidence of prior bilateral cataract surgery. 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 Feb 03, 2020 11:29
[2020-02-03 11:42] VITALS: BP 131/82
--- NOTE | 2020-02-03 11:56 | Diagnostic Imaging Report ---
Indication: Blurred vision, status post fall Technique: Spiral acquisitions obtained through the abdomen and pelvis. No oral or IV contrast utilized, per urinary stone protocol. Multiplanar reconstructions were generated. Total dose length product 1098 mGycm. CTDIvol(s) 53 mGy. Dose reduction achieved using automated exposure control Comparison: none Findings: There is age-related enlargement of the extra-axial CSF spaces. Ventricles are normal in size. No acute intracranial hemorrhage or edema. No mass effect nor midline shift. Normal peguero-white differentiation. Small deep white matter lacunar infarct is seen in the left frontal region. The calvaria is intact. Visualized and sinuses are unremarkable. There is evidence of prior bilateral cataract surgery. 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 Brain on current
--- NOTE | 2020-02-03 13:07 | Cardiac Electrophysiology PN ---
Subjective Subjective [id number] Objective Last 24 Hour Vital Signs Date Time Temp Pulse Resp B/P (MAP) Pulse Ox O2 Delivery O2 Flow Rate FiO2 02/03/20 11:42 98.8 60 15 131/82 95 Room Air 02/03/20 10:25 148/87 02/03/20 10:21 98.8 79 20 148/87 98 Room Air 02/03/20 10:21 79 20 Room Air 02/03/20 10:08 98.8 79 20 148/87 (107) 98 Room Air Laboratory Tests Test 02/03/20 10:18 White Blood Count 5.7 K/UL (4.8-10.8) Red Blood Count 4.43 M/UL (4.70-6.10) L Hemoglobin 13.8 G/DL (14.2-18.0) L Hematocrit 41.5 % (42.0-52.0) L Mean Corpuscular Volume 94 FL (80-99) Mean Corpuscular Hemoglobin 31.2 PG (27.0-31.0) H Mean Corpuscular Hemoglobin Concent 33.3 G/DL (32.0-36.0) Red Cell Distribution Width 11.8 % (11.6-14.8) Platelet Count 161 K/UL (150-450) Mean Platelet Volume 8.2 FL (6.5-10.1) Neutrophils (%) (Auto) 75.3 % (45.0-75.0) H Lymphocytes (%) (Auto) 16.0 % (20.0-45.0) L Monocytes (%) (Auto) 6.5 % (1.0-10.0) Eosinophils (%) (Auto) 1.1 % (0.0-3.0) Basophils (%) (Auto) 1.1 % (0.0-2.0) Prothrombin Time 11.4 SEC (9.30-11.50) Prothromb Time International Ratio 1.0 (0.9-1.1) Activated Partial Thromboplast Time 30 SEC (23-33) Sodium Level 144 MMOL/L (136-145) Potassium Level 3.4 MMOL/L (3.5-5.1) L Chloride Level 110 MMOL/L (98-107) H Carbon Dioxide Level 24 MMOL/L (21-32) Anion Gap 10 mmol/L (5-15) Blood Urea Nitrogen 20 mg/dL (7-18) H Creatinine 1.2 MG/DL (0.55-1.30) Estimat Glomerular Filtration Rate > 60 mL/min (>60) Glucose Level 105 MG/DL (74-106) Calcium Level 8.9 MG/DL (8.5-10.1) Total Bilirubin 0.8 MG/DL (0.2-1.0) Aspartate Amino Transf (AST/SGOT) 17 U/L (15-37) Alanine Aminotransferase (ALT/SGPT) 20 U/L (12-78) Alkaline Phosphatase 54 U/L (46-116) Troponin I 0.080 ng/mL (0.000-0.056) Pro-B-Type Natriuretic Peptide 925 pg/mL (0-125) H Total Protein 6.8 G/DL (6.4-8.2) Albumin 3.6 G/DL (3.4-5.0) Globulin 3.2 g/dL Albumin/Globulin Ratio 1.1 (1.0-2.7) Microbiology Date/Time Source Procedure Growth Status 02/03/20 11:06 Nasopharynx SARS-CoV-2 RdRp Gene Assay - Final Complete Odell Lehman MD Feb 03, 2020 13:07
--- NOTE | 2020-02-03 14:44 | Consultation ---
DATE OF CONSULTATION: 02/03/2020 CARDIOLOGY CONSULTATION CONSULTING PHYSICIAN: Odell Lehman MD REFERRING PHYSICIAN: Rush Dawn MD REASON FOR CONSULTATION: Chest pain. HISTORY OF PRESENT ILLNESS: The patient is a 64-year-old gentleman with hypertension, coronary artery disease with history of coronary artery bypass graft as well as paroxysmal atrial fibrillation and history of DVT and PE status post IVC filter who presents to the hospital after a presyncopal episode. The patient stated he was feeling dizzy around noon and this morning woke up with left-sided chest pressure with radiation to the left upper extremity. The patient was admitted and a Cardiology consultation was obtained for further evaluation. REVIEW OF SYSTEMS: Review of systems was negative other than what is mentioned in the history of present illness. PAST MEDICAL HISTORY: As mentioned above. FAMILY HISTORY: Noncontributory. SOCIAL HISTORY: He lives in [place]. Does not smoke or drink alcohol. PHYSICAL EXAMINATION: VITAL SIGNS: Blood pressure is 131/82, pulse 60, respirations 18, and temperature 98.8. HEAD AND NECK: No JVD. LUNGS: Clear. CARDIOVASCULAR: Regular S1 and S2. Sternotomy scar is intact. ABDOMEN: Soft. EXTREMITIES: No pitting edema. LABORATORY DATA: Labs show white count 5.7, hemoglobin 13.8, hematocrit 41.5, platelet count 161. Sodium 144, potassium 3.4, BUN of 20, creatinine 1.2. Troponin 0.08. BNP is 925. EKG shows sinus rhythm with left anterior fascicular block with no acute ST-T wave abnormalities. ASSESSMENT AND PLAN: 1. Chest pain. The patient with history of coronary artery bypass graft and stent placement. We will completely rule out [place] protocol. Repeat EKG and echocardiogram. His previous admission here was on September 22, 2019 for similar presentation. We will schedule a stress test for further evaluation. 2. History of hypertension on Norvasc 10, metoprolol 25 twice a day, Lasix 40 mg daily. 3. History of DVT, status post IVC filter, on Xarelto 20 mg daily. 4. Status post multiple abdominal surgeries. It is of note patient's CABG in 2013 in [place]. He states that he had last stent at [facility] two years ago. His previous echo showed ejection fraction of %. Thank you much for allowing me to participate in the care of this patient. Please do not hesitate to contact me for any questions regarding my evaluation. Sincerely, Odell Lehman M.D. DR: Collette JOB#: [id number] CC:
--- NOTE | 2020-02-03 15:36 | Diagnostic Imaging Report ---
Indication: Chest pain Technique: One view of the chest Comparison: For 15/09/2019 Findings: There is evidence of a small left pleural effusion. There is a retrocardiac consolidation. The heart is borderline enlarged. Impression: Small left pleural effusion Retrocardiac consolidation
[2020-02-03] MEDS: traMADol 50mg tab ORAL PRN ×2 (15:57→20:53)
[2020-02-03 16:00] VITALS: BP 161/94
[2020-02-03] MEDS ORDERED: HydrALAZINE 25mg tab ORAL PRN (19:15)
[2020-02-03] MEDS ORDERED: Gadavist 7.5mMol/7.5ml vial IV PRN (19:30)
[2020-02-03 20:00] VITALS: BP 157/92
--- NOTE | 2020-02-03 20:44 | Consultation ---
DATE OF CONSULTATION: 02/03/2020 PULMONARY CONSULTATION CONSULTING PHYSICIAN: Selvin Griffin MD. HISTORY OF PRESENT ILLNESS: This is a 64-year-old male admitted to the hospital with chest pain. The patient has a history of hypertension and CAD as well as previous CABG. He has previously also undergone IVC filter placement for DVT and PE, and also history of paroxysmal atrial fibrillation. He came to hospital with presyncopal episode. He was dizzy and he presented to the hospital. He also reports chest pain. The patient underwent a complete workup including head CT, which was negative except for old lacunar infarct. Chest x-ray was obtained, which shows small left effusion. REVIEW OF SYSTEMS: Denies any headaches, hematemesis, melena, hematochezia, or weight loss. PAST MEDICAL HISTORY: Notable for DVT/PE, IVC filter, paroxysmal atrial fibrillation, CABG, CAD, and hypertension. CURRENT MEDICATIONS: Include aspirin, Lipitor, Lasix, potassium, Xarelto, Zoloft, and tramadol. He is also on Norvasc. The patient denies any headaches, hematemesis, melena, or hematochezia. PHYSICAL EXAMINATION: GENERAL: Reveals a 64-year-old male. VITAL SIGNS: Blood pressure 130/80, heart rate 72, respirations 20. He is afebrile. O2 saturation 99% on room air. HEENT: Unremarkable. LUNGS: Clear breath sounds bilaterally. ABDOMEN: Soft. LABORATORY DATA: Lab testing shows hemoglobin 13.8. Potassium 3.4. Troponin 0.08. Coags are negative. X-ray chest discussed above, notable for a small left effusion. IMPRESSION: 1. Small left pleural effusion. 2. Non-STEMI. 3. CAD. 4. CABG. 5. History of DVT and IVC filter. 6. Chronic anticoagulation. DISCUSSION: Admit to the hospital. The patient needs diuretics. We will . We will order oxygen and pulmonary hygiene. Predominant care as per Cardiology. Selvin Griffin M.D. DR: BRITTANI JOB#: [id number] CC:
[2020-02-03] MEDS: Atorvastatin 20mg tab ORAL SCH (20:53)
--- NOTE | 2020-02-03 23:00 | Consultation ---
DATE OF CONSULTATION: 02/03/2020 NEUROLOGIC CONSULTATION CONSULTING PHYSICIAN: Elliot Santos MD. CHIEF COMPLAINT: This is the first [facility] admission; however, patient thinks second [facility] admission for this 64-year-old male; however, he thinks he is 63 right-handed white male who has a history of hypertension for 20 years and hyperlipidemia for 10 to 20 years, episodes of syncope going back at least 15 years, coronary artery disease. The patient was admitted to the ER with a faint. I was asked to see the patient because of his symptom spells. HISTORY OF PRESENT ILLNESS: The patient was brought to the emergency room yesterday feeling dizzy beginning yesterday around noon. He noted some chest pressure-like pain. The patient fell. There was no loss of consciousness, but he fainted today. The patient did not struck his head. He denies any loss of consciousness. There was no nausea or vomiting. He laid on the ground for 10 minutes. He complained of shortness of breath. No diaphoresis or pallor,as far as he knows. He does not drink at all. Never had any seizures. The patient has had 2 fainting episodes in the past. The first one, he was in about 20 years ago. He "woke up in the hospital" and he was told he had 3 coronary artery bypass surgeries. There was no other reason for fainting. The patient about 3 to 4 years ago, also was in [place]. He had no chest pain and he also woke in the hospital at that time. The patient denies any illegal drugs. Last time he smoked was in high school. The patient also has deep vein thromboses in the legs. He has an IVC placed and is also on Xarelto and Plavix. The patient had apparently had 2 stents placed. The patient apparently has had atrial fibrillation along with this hypertension. He is on Norvasc. He saw Dr. Lehman today. At home, he is on aspirin 81 mg, Norvasc 10 mg, furosemide 40 mg daily, potassium chloride, Xarelto 10 mg 20 mg a day, sertraline 100 mg 200 mg a day. The patient denies any kidney disease or previous strokes. He denies any memory loss or seizures. He has had depression, anxiety, affect is bipolar, and takes the above medications. The patient denies any dysarthria, dysphagia, loss of smell or taste, or diplopia although he sees black spots. He has a lot of headaches beginning 15 to 20 years ago. They are bitemporal, throbbing, 7 to 8/10 in severity, and lasts few hours. He has 2 to 3 a month. He denies ever having an MRI or CT scan of his brain except for today. The patient used to have paresthesias in his feet, which disappeared after a previous procedure, but they are now coming back below his knees. On admission, the patient's CBC revealed that he was slightly anemic with a normal platelet count and normal white count. His PT and PTT were normal. His chemistries revealed slightly low potassium, elevated chloride, BUN of 20, and creatinine was normal. Troponin was slightly elevated. Liver function tests were normal. His COVID testing was negative. His chest x-ray reveals small left pleural effusion and retrocardiac consolidation. A CT scan of the brain today was abnormal revealing age-related cortical volume loss. There is some small deep white matter lacunar infarct seen in the left frontal region. There is evidence of prior bilateral cataract surgery. The patient has had an EKG revealed incomplete right bundle-branch block pattern and left anterior fascicular block. The patient's father of a cerebral aneurysm. PAST MEDICAL HISTORY/PAST MEDICAL ILLNESSES: 1. Hypertension. See above. 2. Hyperlipidemia, on Crestor. 3. Ruptured diverticulitis with exploratory laparotomy. 4. Bipolar disorder, depression. 5. Pulmonary embolism, deep vein thrombosis, status post IVC filter. ALLERGIES: He denies any allergies. HABITS: See above. SURGERIES: He had exploratory laparotomy, see above. He had at least 2 stents and CABG of 3 vessels. He also had cataract surgery. Bilateral knee surgeries. SOCIAL HISTORY: He lives in a alf. 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 FAMILY HISTORY: His mother of heart disease and father of aneurysm. He was the only child. REVIEW OF SYSTEMS: Appetite is fair. Weight is 225 pounds and 5 feet 9 inches tall. Rest of review of systems except for the above is noncontributory. PHYSICAL EXAMINATION: GENERAL: He is a well-developed, obese man, lying in bed, no acute distress. VITAL SIGNS: Blood pressure is 161/94, pulse rate is 60 to 65, temperature is 96.6 degrees, respiratory rate 18, SpO2 is 95%. HEENT: Examination of head is basically intact. NECK: There is no tenderness. Carotids are +2. No bruits could be appreciated. LUNGS: Clear to auscultation. CARDIOVASCULAR: PMI could not be felt. JVP was not noted. HEART: Heart tones are distant. I could not hear any murmurs, rubs, S3, or S4. ABDOMEN: Obese. There were surgical scars. There is no tenderness, masses, or organomegaly. BACK: There is no tenderness to percussion. EXTREMITIES: He has bilateral knee scars. He had a surgical scar on the left thumb from a partial laceration "amputation". NEUROLOGIC EXAMINATION: MENTAL STATUS: He is alert and awake. Judgment was fair. Affect was appropriate. Memory, past memory is intact to date of . Immediate recall is 3/3 objects. Recent recall is 1/3 objects at 5 minutes. Intellect, similarities are mildly abstract i.e., watch and a ruler they "measure stuff." Orientation, he was slightly disoriented. He thought the date was 01/30/2020 or 01/31/2020. Place, he knew he was at [facility] second or third floor. He was oriented to person. Language function, spoken speech was fluent without paraphasias. Comprehension, repetition intact, however, he could not spell world backwards, spelling it "DOWLD." There is no right left confusion or finger agnosia. CRANIAL NERVE EXAMINATION: CRANIAL NERVE II: Visual sen are intact to confrontation. CRANIAL NERVES III, IV, AND : Extraocular motility was full. Pupils are about 4 mm, round, light reactive. CRANIAL NERVE V: There is decreased right facial sensation in the first division of fifth cranial nerve only to fine touch. CRANIAL NERVE VII: Facial strength is 5/5 bilaterally. CRANIAL NERVE VIII: Auditory acuity was probably intact bilaterally. CRANIAL NERVES IX AND X: Not tested. CRANIAL NERVES XI AND XII: Normal. Tongue stuck out in the midline. MUSCLE EXAMINATION: Muscle bulk is symmetrical. Tone is normal. Strength is 5/5 proximally and distally in the upper extremities. In lower extremities, proximal strength is about 4/5. Distal strength is 5/5. REFLEXES: +1 to +2 in the upper extremities, +2 at the knees, 0 at the ankles with probable downgoing toes and testing for Babinski response. COORDINATION: Finger finger-nose was intact. He had to be shown how to do rapid alternating movements with each hand. [id number] testing was intact. GAIT AND STATION: Not tested. SENSORY EXAMINATION: Proprioception may been decreased in the left foot in the toes, normal on the right side, normal in the upper extremities. Pinprick and fine touch were decreased over the right upper and right lower extremity, probably symmetrically normal in the trunk. IMPRESSION: Patient has a history of migraine headaches, prior syncopal episodes, probably related to coronary artery disease. The cause of the syncopal episode is unclear at this time. Given the abnormal EKG, history of atrial fibrillation maybe cardiac in nature. He had some lightheadedness, therefore vasodepressor syncopal episode is possible. He is also on antihypertensive medication. He is mildly anemic. The patient will need to see if he was orthostatic changes. He also needs a stool for Hemoccult. The patient should also have an MRI of the brain. The patient's slight confusion may be related to the head injury that he suffered with his fall. On admission, the patient was also placed on hydralazine and nitroglycerin. He is also on aspirin 325 mg. PLAN: 1. Stool for Hemoccult blood. 2. MRI scan of the brain. 3. Orthostatics. 4. Follow this patient with you. Thank you for this interesting case. Elliot Santos MD DR: CRISPIN JOB#: [id number] CC: REGINA
[2020-02-04] VITALS: BP 149/83
--- NOTE | 2020-02-04 01:59 | Cardiology Report ---
APPROVED REPORT EXAM: Two-dimensional and M-mode echocardiogram with Doppler and color Doppler. INDICATION Chest Pain M-Mode DIMENSIONS IVSd1.0 (0.7-1.1cm)Left Atrium (MM)4.8 (1.6-4.0cm) LVDd4.2 (3.5-5.6cm)Aortic Root4.5 (2.0-3.7cm) PWd0.9 (0.7-1.1cm)Aortic Cusp Exc.2.2 (1.5-2.0cm) IVSs1.5 cm LVDs2.7 (2.5-4.0cm) PWs1.0 cm <Conclusion> Technically difficult study due to poor acousical windows. Normal left ventricular chamber size, systolic function and wall motion to extent visualized however the distal septum appears hypokinetic . Left ventricular ejection fraction estimated to be 55 %. No evidence of pericardial fat or effusion. All other cardiac chamber sizes are within normal limits. Calcification of aortic valve with adequate cusp excursion. Thickened mitral valve leaflets with normal excursion. Mitral annulus and aortic root calcification. Pulmonic valve not well visualized. Normal tricuspid valve structure. IVC at normal size with physiologic collapse. A color flow and spectral Doppler study was performed and revealed: No aortic regurgitation. Mild mitral regurgitation. Mitral diastolic velocities suggest reduced left ventricular relaxation c/w mild LV diastolic dysfunction (Grade I ). Trace tricuspid regurgitation. Tricuspid systolic velocities suggests peak right ventricular systolic pressure of 25 mmHg.
[2020-02-04 03:03] LABS: BASOPHILS % (AUTO) 1.9 % (0.0-2.0); EOSINOPHILS % (AUTO) 4.7 % (0.0-3.0); HEMATOCRIT 41.9 % (42.0-52.0); LYMPHOCYTES % (AUTO) 23.9 % (20.0-45.0); MEAN CORPUSCULAR VOLUME 93 FL (80-99); MONOCYTES % (AUTO) 8.6 % (1.0-10.0); NEUTROPHILS % (AUTO) 60.9 % (45.0-75.0); PLATELET COUNT 137 K/UL (150-450); RED CELL DISTRIBUTION WIDTH 11.9 % (11.6-14.8); WHITE BLOOD COUNT 4.9 K/UL (4.8-10.8)
[2020-02-04 03:20] LABS: ALANINE AMINOTRANSFERASE 20 U/L (12-78); ALBUMIN 3.2 G/DL (3.4-5.0); ALKALINE PHOSPHATASE 60 U/L (46-116); ANION GAP 6 mmol/L (5-15); ASPARTATE AMINO TRANSFERASE 11 U/L (15-37); BILIRUBIN,TOTAL 0.5 MG/DL (0.2-1.0); BLOOD UREA NITROGEN 22 mg/dL (7-18); CALCIUM 8.5 MG/DL (8.5-10.1); CARBON DIOXIDE 27 MMOL/L (21-32); CHLORIDE 109 MMOL/L (98-107); CREATININE 1.2 MG/DL (0.55-1.30); POTASSIUM 4.1 MMOL/L (3.5-5.1); SODIUM 142 MMOL/L (136-145)
[2020-02-04 03:26] LABS: PHOSPHORUS 3.1 MG/DL (2.5-4.9)
[2020-02-04 04:00] VITALS: BP 173/103
[2020-02-04] MEDS: traMADol 50mg tab ORAL PRN ×2 (06:14→16:57)
[2020-02-04 08:00] VITALS: BP 147/99
--- NOTE | 2020-02-04 08:53 | Consultation ---
History of Present Illness General Date patient seen: Feb 04, 2020 Time patient seen: 08:50 - am Chief Complaint: Joint pain Referring physician: Nereyda Reason for Consultation: Pain management Present Illness HPI This is a 64 y/o male seen on the tele floor of [facility] for initial pain management consultation for initial pain management consultation. Patient was admitted under the care of Dr. Dawn due to chest pain. As well is c/o chronic constant joint pain. Started on Tramadol 50mg PO 1 tab Q4H PRN severe pain which has adequately reduced his pain. Allergies: Coded Allergies: NO KNOWN ALLERGIES (Verified Allergy, Unknown, 02/03/20) Medication History Scheduled Amlodipine Besylate (Norvasc), 10 MG ORAL DAILY, (Reported) Aspirin* (Aspir 81*), 81 MG ORAL DAILY, (Reported) Atorvastatin Calcium* (Lipitor*), 20 MG ORAL BEDTIME, (Reported) Furosemide* (Lasix*), 80 MG ORAL DAILY, (Reported) Potassium Chloride* (K-Dur*), 10 MEQ ORAL DAILY, (Reported) Rivaroxaban (Xarelto*), 20 MG ORAL DAILY, (Reported) Sertraline Hcl* (Zoloft*), 200 MG PO DAILY, (Reported) Patient History Healthcare decision maker Resuscitation status Advanced Directive on File Patient History Narrative PAST MEDICAL HISTORY/PAST MEDICAL ILLNESSES: 1. Hypertension. See above. 2. Hyperlipidemia, on Crestor. 3. Ruptured diverticulitis with exploratory laparotomy. 4. Bipolar disorder, depression. 5. Pulmonary embolism, deep vein thrombosis, status post IVC filter. SURGERIES: He had exploratory laparotomy, see above. He had at least 2 stents and CABG of 3 vessels. He also had cataract surgery. Bilateral knee surgeries. Review of Systems Constitutional: Reports: weakness Eye: Reports: no symptoms ENT: Reports: no symptoms Respiratory: Reports: no symptoms Cardiovascular: Reports: no symptoms Gastrointestinal: Reports: no symptoms Genitourinary: Reports: no symptoms Musculoskeletal: Reports: joint pain Skin: Reports: no symptoms Psychiatric: Reports: no symptoms Neurological: Reports: no symptoms Endocrine: Reports: no symptoms Hematologic/Lymphatic: Reports: no symptoms Physical Exam General Appearance: no apparent distress, alert HEENT: PERRL Neck: non-tender, normal alignment Respiratory/Chest: lungs clear, normal breath sounds Cardiovascular/Chest: normal rate, regular rhythm Abdomen: non tender, soft Extremities: normal range of motion, non-tender Neurologic: alert, oriented x 3 Last 24 Hour Vital Signs Date Time Temp Pulse Resp B/P (MAP) Pulse Ox O2 Delivery O2 Flow Rate FiO2 02/04/20 08:00 96.1 63 19 147/99 (115) 96 02/04/20 06:44 97.7 02/04/20 04:31 173/103 02/04/20 04:00 64 02/04/20 04:00 97.7 66 20 173/103 (126) 95 02/04/20 00:00 97.9 72 20 149/83 (105) 94 02/04/20 00:00 66 02/03/20 21:00 Room Air 02/03/20 20:00 67 02/03/20 20:00 97.2 69 20 157/92 (113) 95 02/03/20 16:00 65 02/03/20 16:00 96.6 60 18 161/94 (116) 95 02/03/20 13:53 Room Air 02/03/20 13:20 98.8 72 19 138/84 100 Room Air 02/03/20 11:42 98.8 60 15 131/82 95 Room Air 02/03/20 10:25 148/87 02/03/20 10:21 98.8 79 20 148/87 98 Room Air 02/03/20 10:21 79 20 Room Air 02/03/20 10:08 98.8 79 20 148/87 (107) 98 Room Air Intake and Output 02/03/20 02/04/20 19:00 07:00 Intake Total 730 ml 350 ml Output Total 0 ml Balance 730 ml 350 ml Intake Oral 730 ml 350 ml Output Urine Total 0 ml # Bowel Movements 1 Laboratory Tests Test 02/03/20 10:18 02/03/20 19:00 02/04/20 02:55 White Blood Count 5.7 K/UL (4.8-10.8) 4.9 K/UL (4.8-10.8) Red Blood Count 4.43 M/UL (4.70-6.10) L 4.50 M/UL (4.70-6.10) L Hemoglobin 13.8 G/DL (14.2-18.0) L 14.0 G/DL (14.2-18.0) L Hematocrit 41.5 % (42.0-52.0) L 41.9 % (42.0-52.0) L Mean Corpuscular Volume 94 FL (80-99) 93 FL (80-99) Mean Corpuscular Hemoglobin 31.2 PG (27.0-31.0) H 31.0 PG (27.0-31.0) Mean Corpuscular Hemoglobin Concent 33.3 G/DL (32.0-36.0) 33.3 G/DL (32.0-36.0) Red Cell Distribution Width 11.8 % (11.6-14.8) 11.9 % (11.6-14.8) Platelet Count 161 K/UL (150-450) 137 K/UL (150-450) L Mean Platelet Volume 8.2 FL (6.5-10.1) 8.2 FL (6.5-10.1) Neutrophils (%) (Auto) 75.3 % (45.0-75.0) H 60.9 % (45.0-75.0) Lymphocytes (%) (Auto) 16.0 % (20.0-45.0) L 23.9 % (20.0-45.0) Monocytes (%) (Auto) 6.5 % (1.0-10.0) 8.6 % (1.0-10.0) Eosinophils (%) (Auto) 1.1 % (0.0-3.0) 4.7 % (0.0-3.0) H Basophils (%) (Auto) 1.1 % (0.0-2.0) 1.9 % (0.0-2.0) Prothrombin Time 11.4 SEC (9.30-11.50) Prothromb Time International Ratio 1.0 (0.9-1.1) Activated Partial Thromboplast Time 30 SEC (23-33) Sodium Level 144 MMOL/L (136-145) 142 MMOL/L (136-145) Potassium Level 3.4 MMOL/L (3.5-5.1) L 4.1 MMOL/L (3.5-5.1) Chloride Level 110 MMOL/L (98-107) H 109 MMOL/L (98-107) H Carbon Dioxide Level 24 MMOL/L (21-32) 27 MMOL/L (21-32) Anion Gap 10 mmol/L (5-15) 6 mmol/L (5-15) Blood Urea Nitrogen 20 mg/dL (7-18) H 22 mg/dL (7-18) H Creatinine 1.2 MG/DL (0.55-1.30) 1.2 MG/DL (0.55-1.30) Estimat Glomerular Filtration Rate > 60 mL/min (>60) > 60 mL/min (>60) Glucose Level 105 MG/DL (74-106) 105 MG/DL (74-106) Calcium Level 8.9 MG/DL (8.5-10.1) 8.5 MG/DL (8.5-10.1) Total Bilirubin 0.8 MG/DL (0.2-1.0) 0.5 MG/DL (0.2-1.0) Aspartate Amino Transf (AST/SGOT) 17 U/L (15-37) 11 U/L (15-37) L Alanine Aminotransferase (ALT/SGPT) 20 U/L (12-78) 20 U/L (12-78) Alkaline Phosphatase 54 U/L (46-116) 60 U/L (46-116) Troponin I 0.080 ng/mL (0.000-0.056) 0.088 ng/mL (0.000-0.056) 0.095 ng/mL (0.000-0.056) Pro-B-Type Natriuretic Peptide 925 pg/mL (0-125) H 843 pg/mL (0-125) H Total Protein 6.8 G/DL (6.4-8.2) 6.4 G/DL (6.4-8.2) Albumin 3.6 G/DL (3.4-5.0) 3.2 G/DL (3.4-5.0) L Globulin 3.2 g/dL 3.2 g/dL Albumin/Globulin Ratio 1.1 (1.0-2.7) 1.0 (1.0-2.7) Phosphorus Level 3.1 MG/DL (2.5-4.9) Magnesium Level 2.0 MG/DL (1.8-2.4) C-Reactive Protein, Quantitative < 0.4 mg/dL (0.00-0.90) Microbiology Date/Time Source Procedure Growth Status 02/03/20 11:06 Nasopharynx SARS-CoV-2 RdRp Gene Assay - Final Complete Height (Feet): 5 Height (Inches): 7.00 Weight (Pounds): 224 Medications Current Medications Medications (Trade) Dose Ordered Sig/Hal Route PRN Reason Start Time Stop Time Status Last Admin Dose Admin Amlodipine Besylate (Norvasc) 10 mg DAILY ORAL 02/04/20 09:00 03/05/20 08:59 Aspirin (Ecotrin) 81 mg DAILY ORAL 02/04/20 09:00 03/20/20 08:59 Atorvastatin Calcium (Lipitor) 20 mg BEDTIME ORAL 02/03/20 21:00 05/03/20 20:59 02/03/20 20:53 Clonidine HCl (Catapres Tab) 0.1 mg Q2H PRN ORAL if sbp >170 02/03/20 20:06 05/03/20 20:05 02/04/20 04:31 Furosemide (Lasix) 80 mg DAILY ORAL 02/04/20 09:00 03/05/20 08:59 Gadobutrol (Gadavist) 7.5 mmol NOW PRN IV Radiology Procedure 02/03/20 19:30 02/07/20 19:25 Potassium Chloride (K-Dur) 10 meq DAILY ORAL 02/04/20 09:00 05/04/20 08:59 Rivaroxaban (Xarelto) 20 mg DAILY ORAL 02/04/20 09:00 05/04/20 08:59 Sertraline HCl (Zoloft) 200 mg DAILY ORAL 02/04/20 09:00 03/05/20 08:59 Tramadol HCl (Ultram) 50 mg Q4H PRN ORAL for severe pain 02/03/20 15:30 02/10/20 15:29 02/04/20 06:14 Assessment/Plan Assessment/Plan: (1) Multiple Joint Osteoarthritis (2) Multiple Joint pain Patient will be continued on Tramadol 50mg Q4H PRN D/w Dr. Barlow and he concurred Thank you for consultation Elliott Holliday Feb 04, 2020 08:53
[2020-02-04] MEDS: Aspirin EC 81mg tab ORAL SCH (09:13)
[2020-02-04] MEDS: Furosemide 40mg tab ORAL SCH (09:14)
[2020-02-04] MEDS: Sertraline 100mg tab ORAL SCH (09:15)
[2020-02-04] MEDS: Xarelto 10mg tab ORAL SCH (09:15)
[2020-02-04 11:29] VITALS: BP 141/89
--- NOTE | 2020-02-04 12:26 | Consultation ---
Consult Note Consult Note I am asked to evaluate the patient at the request of Edwin (I received a text from him last evening) for management of high blood pressure. 64-year-old male with past medical history of CAD s/p stent x 2 on Plavix, CABG , recurrent PE/DVT s/p IVC filter, afib, HTN, dyslipidemia, ruptured diverticulitis s/p EX LAP depression presents s/p presyncopal episode. Patient states he started feeling dizzy yesterday around noon. This morning woke up with left-sided substernal chest pressure radiating to the left upper extremity that prompted him to come to ED. States that he fell to the ground and may have hit his head on the carpet. Questionable LOC. Denies vision changes, focal weakness, nausea, vomiting, diarrhea, melena, hematochezia, neck pain, back pain, abdominal pain. The patient's symptoms were gradual onset, severity was moderate, duration since 2 days. PHYSICAL EXAMINATION: VITAL SIGNS: Blood pressure is 131/82, pulse 60, respirations 18, and temperature 98.8. HEAD AND NECK: No JVD. LUNGS: Clear. CARDIOVASCULAR: Regular S1 and S2. Sternotomy scar is intact. ABDOMEN: Soft. EXTREMITIES: No pitting edema. LABORATORY DATA: Labs show white count 5.7, hemoglobin 13.8, hematocrit 41.5, platelet count 161. Sodium 144, potassium 3.4, BUN of 20, creatinine 1.2. Troponin 0.08. BNP is 925. EKG shows sinus rhythm with left anterior fascicular block with no acute ST-T wave abnormalities. . 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
[2020-02-04 16:00] VITALS: BP 148/66
[2020-02-04 16:13] LABS: CHOLESTEROL 143 MG/DL (< 200); HDL CHOLESTEROL 42 MG/DL (40-60); TRIGLYCERIDES 106 MG/DL (30-150)
--- NOTE | 2020-02-04 16:40 | Diagnostic Imaging Report ---
Indication: Syncope, altered level of consciousness Technique: sagittal T1 fast spin echo, axial T1 and T2 FLAIR PROPELLER, axial T2 FS PROPELLER, T2* GRE, axial diffusion weighted images, post contrast axial and coronal T1 FLAIR PROPELLER images. ADC and exponential ADC maps generated Comparison: CT brain 02/03/2020 Findings: . No abnormal areas of restricted diffusion to suggest acute infarction. No acute hemorrhage or edema. No mass effect nor midline shift. No abnormal contrast enhancement. Normal size ventricles and extra axial CSF spaces. There is evidence of prior bilateral cataract surgery. The sinuses are clear. Tiny bilateral basal ganglia lacunar infarcts are noted. There is also periventricular deep white matter high T2 signal, consistent with chronic microvascular ischemic change. The vascular flow voids are clear. Impression: Chronic and age-related changes as described Negative for acute intracranial bleed, mass effect, or contrast enhancing lesion
--- NOTE | 2020-02-04 17:47 | Cardiac Electrophysiology PN ---
Assessment/Plan Assessment/Plan 1. Chest pain. The patient with history of CABG 2014 in [place] and stent placement. Ruled out for MA protocol.( Troponins are all flat and Low 0.08, 0.08, 0.09) His previous admission here was on September 22, 2019 for similar presentation. We will schedule a stress test for further evaluation. 2. History of hypertension on Norvasc 10, metoprolol 25 twice a day, Lasix 40 mg daily. 3. History of DVT, status post IVC filter, on Xarelto 20 mg daily. 4. Status post multiple abdominal surgeries. Subjective Subjective Alert in NAD. Stool OB pending.Was orthostatic Objective Last 24 Hour Vital Signs Date Time Temp Pulse Resp B/P (MAP) Pulse Ox O2 Delivery O2 Flow Rate FiO2 02/04/20 16:00 97.7 67 20 148/66 (93) 96 02/04/20 16:00 67 80 90 02/04/20 12:00 68 02/04/20 11:29 99.1 70 21 141/89 (106) 96 02/04/20 09:14 63 147/99 02/04/20 09:00 Room Air 02/04/20 08:00 77 02/04/20 08:00 96.1 63 19 147/99 (115) 96 02/04/20 06:44 97.7 02/04/20 04:31 173/103 02/04/20 04:00 64 02/04/20 04:00 97.7 66 20 173/103 (126) 95 02/04/20 00:00 97.9 72 20 149/83 (105) 94 02/04/20 00:00 66 02/03/20 21:00 Room Air 02/03/20 20:00 67 02/03/20 20:00 97.2 69 20 157/92 (113) 95 Intake and Output 02/03/20 02/04/20 19:00 07:00 Intake Total 730 ml 350 ml Output Total 0 ml Balance 730 ml 350 ml Intake Oral 730 ml 350 ml Output Urine Total 0 ml # Bowel Movements 1 Laboratory Tests Test 02/03/20 19:00 02/04/20 02:55 02/04/20 14:20 Troponin I 0.088 ng/mL (0.000-0.056) 0.095 ng/mL (0.000-0.056) White Blood Count 4.9 K/UL (4.8-10.8) Red Blood Count 4.50 M/UL (4.70-6.10) L Hemoglobin 14.0 G/DL (14.2-18.0) L Hematocrit 41.9 % (42.0-52.0) L Mean Corpuscular Volume 93 FL (80-99) Mean Corpuscular Hemoglobin 31.0 PG (27.0-31.0) Mean Corpuscular Hemoglobin Concent 33.3 G/DL (32.0-36.0) Red Cell Distribution Width 11.9 % (11.6-14.8) Platelet Count 137 K/UL (150-450) L Mean Platelet Volume 8.2 FL (6.5-10.1) Neutrophils (%) (Auto) 60.9 % (45.0-75.0) Lymphocytes (%) (Auto) 23.9 % (20.0-45.0) Monocytes (%) (Auto) 8.6 % (1.0-10.0) Eosinophils (%) (Auto) 4.7 % (0.0-3.0) H Basophils (%) (Auto) 1.9 % (0.0-2.0) Sodium Level 142 MMOL/L (136-145) Potassium Level 4.1 MMOL/L (3.5-5.1) Chloride Level 109 MMOL/L (98-107) H Carbon Dioxide Level 27 MMOL/L (21-32) Anion Gap 6 mmol/L (5-15) Blood Urea Nitrogen 22 mg/dL (7-18) H Creatinine 1.2 MG/DL (0.55-1.30) Estimat Glomerular Filtration Rate > 60 mL/min (>60) Glucose Level 105 MG/DL (74-106) Hemoglobin A1c 6.6 % (4.3-6.0) H Calcium Level 8.5 MG/DL (8.5-10.1) Phosphorus Level 3.1 MG/DL (2.5-4.9) Magnesium Level 2.0 MG/DL (1.8-2.4) Total Bilirubin 0.5 MG/DL (0.2-1.0) Aspartate Amino Transf (AST/SGOT) 11 U/L (15-37) L Alanine Aminotransferase (ALT/SGPT) 20 U/L (12-78) Alkaline Phosphatase 60 U/L (46-116) C-Reactive Protein, Quantitative < 0.4 mg/dL (0.00-0.90) Pro-B-Type Natriuretic Peptide 843 pg/mL (0-125) H Total Protein 6.4 G/DL (6.4-8.2) Albumin 3.2 G/DL (3.4-5.0) L Globulin 3.2 g/dL Albumin/Globulin Ratio 1.0 (1.0-2.7) Triglycerides Level 106 MG/DL (30-150) Cholesterol Level 143 MG/DL (< 200) LDL Cholesterol 90 mg/dL (<100) HDL Cholesterol 42 MG/DL (40-60) Cholesterol/HDL Ratio 3.4 (3.3-4.4) Stool Occult Blood Pending Microbiology Date/Time Source Procedure Growth Status 02/03/20 11:06 Nasopharynx SARS-CoV-2 RdRp Gene Assay - Final Complete Objective HEAD AND NECK: No JVD. LUNGS: Clear. CARDIOVASCULAR: Regular S1 and S2. Sternotomy scar is intact. ABDOMEN: Soft. EXTREMITIES: No pitting edema. Odell Lehman MD Feb 04, 2020 17:47
[2020-02-04] MEDS ORDERED: Lexiscan 0.4mg/5ml syringe IV PRN (18:00)
--- NOTE | 2020-02-04 18:14 | Cardiac Electrophysiology PN ---
Assessment/Plan Assessment/Plan 1. Chest pain. The patient with history of CABG 2014 in [place] and stent placement. Ruled out for [place] protocol.( Troponins are all flat and Low 0.08, 0.08, 0.09) His previous admission here was on September 22, 2019 for similar presentation. We will schedule a stress test for further evaluation. 2. NSVT 15 beats. Stress test pending. Continue Toprol 3. Hypertension on Norvasc 10, metoprolol 25 twice a day, Lasix 40 mg daily. 4. History of DVT, status post IVC filter, on Xarelto 20 mg daily. 5. Status post multiple abdominal surgeries. Subjective Subjective Alert in NAD. Stool OB pending.Was orthostatic. Had 15 beats of NSVT today Objective Last 24 Hour Vital Signs Date Time Temp Pulse Resp B/P (MAP) Pulse Ox O2 Delivery O2 Flow Rate FiO2 02/04/20 17:27 97.7 02/04/20 16:00 97.7 67 20 148/66 (93) 96 02/04/20 16:00 67 80 90 02/04/20 16:00 63 02/04/20 12:00 68 02/04/20 11:29 99.1 70 21 141/89 (106) 96 02/04/20 09:14 63 147/99 02/04/20 09:00 Room Air 02/04/20 08:00 77 02/04/20 08:00 96.1 63 19 147/99 (115) 96 02/04/20 04:31 173/103 02/04/20 04:00 64 02/04/20 04:00 97.7 66 20 173/103 (126) 95 02/04/20 00:00 97.9 72 20 149/83 (105) 94 02/04/20 00:00 66 02/03/20 21:00 Room Air 02/03/20 20:00 67 02/03/20 20:00 97.2 69 20 157/92 (113) 95 Intake and Output 02/03/20 02/04/20 19:00 07:00 Intake Total 730 ml 350 ml Output Total 0 ml Balance 730 ml 350 ml Intake Oral 730 ml 350 ml Output Urine Total 0 ml # Bowel Movements 1 Laboratory Tests Test 02/03/20 19:00 02/04/20 02:55 02/04/20 14:20 Troponin I 0.088 ng/mL (0.000-0.056) 0.095 ng/mL (0.000-0.056) White Blood Count 4.9 K/UL (4.8-10.8) Red Blood Count 4.50 M/UL (4.70-6.10) L Hemoglobin 14.0 G/DL (14.2-18.0) L Hematocrit 41.9 % (42.0-52.0) L Mean Corpuscular Volume 93 FL (80-99) Mean Corpuscular Hemoglobin 31.0 PG (27.0-31.0) Mean Corpuscular Hemoglobin Concent 33.3 G/DL (32.0-36.0) Red Cell Distribution Width 11.9 % (11.6-14.8) Platelet Count 137 K/UL (150-450) L Mean Platelet Volume 8.2 FL (6.5-10.1) Neutrophils (%) (Auto) 60.9 % (45.0-75.0) Lymphocytes (%) (Auto) 23.9 % (20.0-45.0) Monocytes (%) (Auto) 8.6 % (1.0-10.0) Eosinophils (%) (Auto) 4.7 % (0.0-3.0) H Basophils (%) (Auto) 1.9 % (0.0-2.0) Sodium Level 142 MMOL/L (136-145) Potassium Level 4.1 MMOL/L (3.5-5.1) Chloride Level 109 MMOL/L (98-107) H Carbon Dioxide Level 27 MMOL/L (21-32) Anion Gap 6 mmol/L (5-15) Blood Urea Nitrogen 22 mg/dL (7-18) H Creatinine 1.2 MG/DL (0.55-1.30) Estimat Glomerular Filtration Rate > 60 mL/min (>60) Glucose Level 105 MG/DL (74-106) Hemoglobin A1c 6.6 % (4.3-6.0) H Calcium Level 8.5 MG/DL (8.5-10.1) Phosphorus Level 3.1 MG/DL (2.5-4.9) Magnesium Level 2.0 MG/DL (1.8-2.4) Total Bilirubin 0.5 MG/DL (0.2-1.0) Aspartate Amino Transf (AST/SGOT) 11 U/L (15-37) L Alanine Aminotransferase (ALT/SGPT) 20 U/L (12-78) Alkaline Phosphatase 60 U/L (46-116) C-Reactive Protein, Quantitative < 0.4 mg/dL (0.00-0.90) Pro-B-Type Natriuretic Peptide 843 pg/mL (0-125) H Total Protein 6.4 G/DL (6.4-8.2) Albumin 3.2 G/DL (3.4-5.0) L Globulin 3.2 g/dL Albumin/Globulin Ratio 1.0 (1.0-2.7) Triglycerides Level 106 MG/DL (30-150) Cholesterol Level 143 MG/DL (< 200) LDL Cholesterol 90 mg/dL (<100) HDL Cholesterol 42 MG/DL (40-60) Cholesterol/HDL Ratio 3.4 (3.3-4.4) Stool Occult Blood Pending Microbiology Date/Time Source Procedure Growth Status 02/03/20 11:06 Nasopharynx SARS-CoV-2 RdRp Gene Assay - Final Complete Objective HEAD AND NECK: No JVD. LUNGS: Clear. CARDIOVASCULAR: Regular S1 and S2. Sternotomy scar is intact. ABDOMEN: Soft. EXTREMITIES: No pitting edema. Odell Lehman MD Feb 04, 2020 18:14
--- NOTE | 2020-02-04 18:41 | Pulmonology Progress Note ---
Subjective Interval Events: None new Constitutional: Reports: no symptoms HEENT: Repors: no symptoms Respiratory: Reports: no symptoms Cardiovascular: Reports: no symptoms Gastrointestinal/Abdominal: Reports: no symptoms Allergies: Coded Allergies: NO KNOWN ALLERGIES (Verified Allergy, Unknown, 02/03/20) Objective Last 24 Hour Vital Signs Date Time Temp Pulse Resp B/P (MAP) Pulse Ox O2 Delivery O2 Flow Rate FiO2 02/04/20 17:27 97.7 02/04/20 16:00 97.7 67 20 148/66 (93) 96 02/04/20 16:00 67 80 90 02/04/20 16:00 63 02/04/20 12:00 68 02/04/20 11:29 99.1 70 21 141/89 (106) 96 02/04/20 09:14 63 147/99 02/04/20 09:00 Room Air 02/04/20 08:00 77 02/04/20 08:00 96.1 63 19 147/99 (115) 96 02/04/20 04:31 173/103 02/04/20 04:00 64 02/04/20 04:00 97.7 66 20 173/103 (126) 95 02/04/20 00:00 97.9 72 20 149/83 (105) 94 02/04/20 00:00 66 02/03/20 21:00 Room Air 02/03/20 20:00 67 02/03/20 20:00 97.2 69 20 157/92 (113) 95 Intake and Output 02/03/20 02/04/20 19:00 07:00 Intake Total 730 ml 350 ml Output Total 0 ml Balance 730 ml 350 ml Intake Oral 730 ml 350 ml Output Urine Total 0 ml # Bowel Movements 1 General Appearance: no acute distress HEENT: normocephalic Respiratory: chest wall non-tender, lungs clear Cardiovascular: normal peripheral pulses Abdomen: normal bowel sounds Microbiology Date/Time Source Procedure Growth Status 02/03/20 11:06 Nasopharynx SARS-CoV-2 RdRp Gene Assay - Final Complete Laboratory Tests 02/03/20 19:00: Troponin I 0.088H 02/04/20 02:55: Troponin I 0.095H, White Blood Count 4.9, Red Blood Count 4.50L, Hemoglobin 14.0L, Hematocrit 41.9L, Mean Corpuscular Volume 93, Mean Corpuscular Hemoglobin 31.0, Mean Corpuscular Hemoglobin Concent 33.3, Red Cell Distribution Width 11.9, Platelet Count 137L, Mean Platelet Volume 8.2, Neutrophils (%) (Auto) 60.9, Lymphocytes (%) (Auto) 23.9, Monocytes (%) (Auto) 8.6, Eosinophils (%) (Auto) 4.7H, Basophils (%) (Auto) 1.9, Sodium Level 142, Potassium Level 4.1, Chloride Level 109H, Carbon Dioxide Level 27, Anion Gap 6, Blood Urea Nitrogen 22H, Creatinine 1.2, Estimat Glomerular Filtration Rate > 60 , Glucose Level 105, Hemoglobin A1c 6.6H, Calcium Level 8.5, Phosphorus Level 3.1, Magnesium Level 2.0, Total Bilirubin 0.5, Aspartate Amino Transf (AST/SGOT ) 11L, Alanine Aminotransferase (ALT/SGPT) 20, Alkaline Phosphatase 60, C- Reactive Protein, Quantitative < 0.4, Pro-B-Type Natriuretic Peptide 843H, Total Protein 6.4, Albumin 3.2L, Globulin 3.2, Albumin/Globulin Ratio 1.0, Triglycerides Level 106, Cholesterol Level 143, LDL Cholesterol 90, HDL Cholesterol 42, Cholesterol/HDL Ratio 3.4 02/04/20 14:20: Stool Occult Blood [Pending] Current Medications Medications (Trade) Dose Ordered Sig/Hal Route PRN Reason Start Time Stop Time Status Last Admin Dose Admin Amlodipine Besylate (Norvasc) 10 mg DAILY ORAL 02/04/20 09:00 03/05/20 08:59 02/04/20 09:14 Aspirin (Ecotrin) 81 mg DAILY ORAL 02/04/20 09:00 03/20/20 08:59 02/04/20 09:13 Atorvastatin Calcium (Lipitor) 20 mg BEDTIME ORAL 02/03/20 21:00 05/03/20 20:59 02/03/20 20:53 Clonidine HCl (Catapres Tab) 0.1 mg Q2H PRN ORAL if sbp >170 02/03/20 20:06 05/03/20 20:05 02/04/20 04:31 Furosemide (Lasix) 80 mg DAILY ORAL 02/04/20 09:00 03/05/20 08:59 02/04/20 09:14 Gadobutrol (Gadavist) 7.5 mmol NOW PRN IV Radiology Procedure 02/03/20 19:30 02/07/20 19:25 Potassium Chloride (K-Dur) 10 meq DAILY ORAL 02/04/20 09:00 05/04/20 08:59 02/04/20 09:14 Regadenoson (Lexiscan) 0.4 mg ONCE PRN IV stress test 02/04/20 18:00 02/06/20 18:00 Rivaroxaban (Xarelto) 20 mg DAILY ORAL 02/04/20 09:00 05/04/20 08:59 02/04/20 09:15 Sertraline HCl (Zoloft) 200 mg DAILY ORAL 02/04/20 09:00 03/05/20 08:59 02/04/20 09:15 Tramadol HCl (Ultram) 50 mg Q4H PRN ORAL for severe pain 02/03/20 15:30 02/10/20 15:29 02/04/20 16:57 Assessment/Plan Assessment/Plan IMPRESSION: 1. Small left pleural effusion. 2. Non-STEMI. 3. CAD. 4. CABG. 5. History of DVT and IVC filter. 6. Chronic anticoagulation. DISCUSSION: Continue diuretics. I have ordered oxygen and pulmonary hygiene. Predominant care as per Cardiology. Saturating well on RA. Lester De Leon Omar Syed MD Feb 04, 2020 18:41
[2020-02-04 19:29] LABS: CREATINE KINASE 123 U/L (26-308)
[2020-02-04 20:00] VITALS: BP 136/87
[2020-02-04] MEDS: Atorvastatin 20mg tab ORAL SCH (21:55)
--- NOTE | 2020-02-04 22:00 | History and Physical Report ---
DATE OF ADMISSION: 02/03/2020 HISTORY OF PRESENT ILLNESS: Patient is admitted for non-STEMI and syncope. EKG shows non-STEMI. Patient had borderline elevated troponin. Has history of CAD, CABG, and atrial fib as well as also IVC filter. He also has history of CHF. CT of the head was negative. Got some aspirin, nitroglycerin in the emergency room. Patient has had chest pain that was going on for one day and radiated to the right arm. Patient is status post fall, rule out syncope. Patient also was dizzy and short of breath. Denies cough. Denies headache. Denies nausea, vomiting, or diarrhea. Denies fever or chills. PAST MEDICAL HISTORY: Significant for hyperlipidemia, CHF, depression, CAD, history of diverticulosis, history of DVT, atrial fibrillation. PAST SURGICAL HISTORY: Repair of the diverticulosis, part of the intestine was removed, bilateral knee surgery. Patient has 4 stents, CABG. FAMILY HISTORY: Does have history of heart disease and hypertension. SOCIAL HISTORY: He has history of smoking. Has history of drug abuse. Denies history of alcohol abuse. MEDICATIONS: Aspirin, Lipitor, Lasix, potassium, Xarelto, and Zoloft. REVIEW OF SYSTEMS: HEENT: Denies headaches. RESPIRATORY: Reports shortness of breath. Denies cough. CARDIOVASCULAR: Reports chest pain radiating to right arm. Denies orthopnea. GASTROINTESTINAL: No nausea, vomiting, or diarrhea. Does have heartburn. EXTREMITIES: Denies pain in lower extremities. CENTRAL NERVOUS SYSTEM: Reports dizziness and status post fall, rule out syncope. PHYSICAL EXAMINATION: VITAL SIGNS: Temperature 97.7, pulse 67, blood pressure 148/66. HEENT: PERRLA. NECK: Supple. CHEST: Clear to auscultation. CARDIOVASCULAR: Irregularly irregular. No murmurs. GASTROINTESTINAL: Soft, nontender, nondistended. No organomegaly. EXTREMITIES: 1+ edema. He is able to move all extremities. Dorsalis pedis pulses present. EKG shows non-STEMI. LABORATORY DATA: WBC of 5.7, hemoglobin 13.8, platelets 161. ASSESSMENT AND PLAN: Non-STEMI, syncope, borderline elevated troponin, CAD, AFib, chest pain, rule out acute coronary syndrome. I have consulted Dr. Barlow, Dr. Hinkle, Dr. Santos, Dr. Lehman, and Dr. Selvin Griffin to help with the management of the shortness of breath and CAD and rule out chest pain as well as to help with the management of the CHF and pain control and also for syncopal workup. Rush Dawn M.D. DR: CATHI JOB#: [id number] CC:
[2020-02-05] VITALS (8 sets, daily range): BP systolic 118–152; BP diastolic 76–95
[2020-02-05] MEDS: traMADol 50mg tab ORAL PRN (06:10)
[2020-02-05] MEDS: Xarelto 10mg tab ORAL SCH (09:07)
[2020-02-05] MEDS: Furosemide 40mg tab ORAL SCH (09:07)
[2020-02-05] MEDS: Aspirin EC 81mg tab ORAL SCH (09:08)
[2020-02-05] MEDS: Sertraline 100mg tab ORAL SCH (09:08)
--- NOTE | 2020-02-05 09:34 | General Progress Note ---
Assessment/Plan Assessment/Plan: (1) Multiple Joint Osteoarthritis (2) Multiple Joint pain Patient will be continued on Tramadol D/w Dr. Barlow and he concurred Subjective Allergies: Coded Allergies: NO KNOWN ALLERGIES (Verified Allergy, Unknown, 02/03/20) Subjective Constitutional: Reports: weakness Eye: Reports: no symptoms ENT: Reports: no symptoms Respiratory: Reports: no symptoms Cardiovascular: Reports: no symptoms Gastrointestinal: Reports: no symptoms Genitourinary: Reports: no symptoms Musculoskeletal: Reports: joint pain Skin: Reports: no symptoms Psychiatric: Reports: no symptoms Neurological: Reports: no symptoms Endocrine: Reports: no symptoms Hematologic/Lymphatic: Reports: no symptoms SUBJECTIVE: Patient is in bed and showing no signs of pain or distress. His pain has been tolerated on the Tramadol. No new complaints at this time. Objective Last 24 Hour Vital Signs Date Time Temp Pulse Resp B/P (MAP) Pulse Ox O2 Delivery O2 Flow Rate FiO2 02/05/20 09:08 79 148/88 02/05/20 06:40 98.1 02/05/20 04:00 97.7 55 20 152/81 (104) 95 02/05/20 04:00 55 02/05/20 00:00 97.7 54 20 130/76 (94) 100 02/05/20 00:00 54 02/04/20 21:00 Room Air 02/04/20 20:00 64 02/04/20 20:00 98.1 66 20 136/87 (103) 94 02/04/20 16:00 97.7 67 20 148/66 (93) 96 02/04/20 16:00 67 80 90 02/04/20 16:00 63 02/04/20 12:00 68 02/04/20 11:29 99.1 70 21 141/89 (106) 96 Intake and Output 02/04/20 02/05/20 19:00 07:00 Intake Total 1200 ml Balance 1200 ml Intake Oral 1200 ml # Voids 2 2 # Bowel Movements 1 Laboratory Tests 02/04/20 14:20: Stool Occult Blood [Pending] 02/04/20 18:00: Total Creatine Kinase 123, Aldolase [Pending], Vitamin B12 Level 561, Methylmalonic Acid [Pending], Thyroid Stimulating Hormone (TSH) 0.936 Height (Feet): 5 Height (Inches): 7.00 Weight (Pounds): 224 Objective General Appearance: no apparent distress, alert HEENT: PERRL Neck: non-tender, normal alignment Respiratory/Chest: lungs clear, normal breath sounds Cardiovascular/Chest: normal rate, regular rhythm Abdomen: non tender, soft Extremities: normal range of motion, non-tender Neurologic: alert, oriented x 3 Elliott Holliday Feb 05, 2020 09:34
--- NOTE | 2020-02-05 10:19 | Pulmonology Progress Note ---
Subjective Interval Events: None new Constitutional: Reports: no symptoms HEENT: Repors: no symptoms Respiratory: Reports: no symptoms Cardiovascular: Reports: no symptoms Gastrointestinal/Abdominal: Reports: no symptoms Allergies: Coded Allergies: NO KNOWN ALLERGIES (Verified Allergy, Unknown, 02/03/20) Objective Last 24 Hour Vital Signs Date Time Temp Pulse Resp B/P (MAP) Pulse Ox O2 Delivery O2 Flow Rate FiO2 02/05/20 09:08 79 148/88 02/05/20 09:00 Room Air 02/05/20 08:00 97.5 79 18 148/88 (108) 97 02/05/20 08:00 107 02/05/20 06:40 98.1 02/05/20 04:00 97.7 55 20 152/81 (104) 95 02/05/20 04:00 55 02/05/20 00:00 97.7 54 20 130/76 (94) 100 02/05/20 00:00 54 02/04/20 21:00 Room Air 02/04/20 20:00 64 02/04/20 20:00 98.1 66 20 136/87 (103) 94 02/04/20 16:00 97.7 67 20 148/66 (93) 96 02/04/20 16:00 67 80 90 02/04/20 16:00 63 02/04/20 12:00 68 02/04/20 11:29 99.1 70 21 141/89 (106) 96 Intake and Output 02/04/20 02/05/20 19:00 07:00 Intake Total 1200 ml Balance 1200 ml Intake Oral 1200 ml # Voids 2 2 # Bowel Movements 1 General Appearance: no acute distress HEENT: normocephalic Respiratory: chest wall non-tender, lungs clear Cardiovascular: normal peripheral pulses Abdomen: normal bowel sounds Microbiology Date/Time Source Procedure Growth Status 02/03/20 11:06 Nasopharynx SARS-CoV-2 RdRp Gene Assay - Final Complete Laboratory Tests 02/04/20 14:20: Stool Occult Blood [Pending] 02/04/20 18:00: Total Creatine Kinase 123, Aldolase [Pending], Vitamin B12 Level 561, Methylmalonic Acid [Pending], Thyroid Stimulating Hormone (TSH) 0.936 Current Medications Medications (Trade) Dose Ordered Sig/Hal Route PRN Reason Start Time Stop Time Status Last Admin Dose Admin Amlodipine Besylate (Norvasc) 10 mg DAILY ORAL 02/04/20 09:00 03/05/20 08:59 02/05/20 09:08 Aspirin (Ecotrin) 81 mg DAILY ORAL 02/04/20 09:00 03/20/20 08:59 02/05/20 09:08 Atorvastatin Calcium (Lipitor) 20 mg BEDTIME ORAL 02/03/20 21:00 05/03/20 20:59 02/04/20 21:55 Clonidine HCl (Catapres Tab) 0.1 mg Q2H PRN ORAL if sbp >170 02/03/20 20:06 05/03/20 20:05 02/04/20 04:31 Furosemide (Lasix) 80 mg DAILY ORAL 02/04/20 09:00 03/05/20 08:59 02/05/20 09:07 Gadobutrol (Gadavist) 7.5 mmol NOW PRN IV Radiology Procedure 02/03/20 19:30 02/07/20 19:25 Potassium Chloride (K-Dur) 10 meq DAILY ORAL 02/04/20 09:00 05/04/20 08:59 02/05/20 09:08 Regadenoson (Lexiscan) 0.4 mg ONCE PRN IV stress test 02/04/20 18:00 02/06/20 18:00 Rivaroxaban (Xarelto) 20 mg DAILY ORAL 02/04/20 09:00 05/04/20 08:59 02/05/20 09:07 Sertraline HCl (Zoloft) 200 mg DAILY ORAL 02/04/20 09:00 03/05/20 08:59 02/05/20 09:08 Tramadol HCl (Ultram) 50 mg Q4H PRN ORAL for severe pain 02/03/20 15:30 02/10/20 15:29 02/05/20 06:10 Assessment/Plan Assessment/Plan IMPRESSION: 1. Small left pleural effusion. 2. Non-STEMI. 3. CAD. 4. CABG. 5. History of DVT and IVC filter. 6. Chronic anticoagulation. DISCUSSION: Continue diuretics. I have ordered oxygen and pulmonary hygiene. Predominant care as per Cardiology. Saturating well on RA. Lester De Leon Omar Syed MD Feb 05, 2020 10:19
[2020-02-05 12:34] LABS: APPEARANCE,URINE CLEAR; BILIRUBIN, URINE NEGATIVE (NEGATIVE); COLOR,URINE PALE YELLOW; GLUCOSE, URINE (UA) NEGATIVE (NEGATIVE); KETONES,URINE NEGATIVE (NEGATIVE); LEUKOCYTE ESTERASE ,URINE NEGATIVE (NEGATIVE); NITRITE,URINE NEGATIVE (NEGATIVE); PH,URINE 5 (4.5-8.0); PROTEIN,URINE NEGATIVE (NEGATIVE); UROBILINOGEN,URINE NORMAL MG/DL (0.0-1.0)
[2020-02-05] MEDS ORDERED: HYDROCORTISONE 2.5% TOPIC PRN (14:15)
[2020-02-05] MEDS ORDERED: Hydrocortisone 1% Cr TOPIC PRN (16:30)
--- NOTE | 2020-02-05 16:54 | Cardiac Electrophysiology PN ---
Assessment/Plan Assessment/Plan 1. Chest pain. The patient with history of CABG 2014 in [place] and stent placement. Ruled out for [place] protocol.( Troponins are all flat and Low 0.08, 0.08 , 0.09) His previous admission here was on September 22, 2019 for similar presentation. Rescheduled stress test for tomorrow 2. NSVT 15 beats. Stress test pending. Continue Toprol 3. Hypertension on Norvasc 10, metoprolol 25 twice a day, Lasix 40 mg daily. 4. History of DVT, status post IVC filter, on Xarelto 20 mg daily. 5. Status post multiple abdominal surgeries. Subjective Subjective Alert in NAD. Stool OB pending.Was orthostatic. Had 15 beats of NSVT yesterday. Stress test postponed to tomorrow as he had breakfast Objective Last 24 Hour Vital Signs Date Time Temp Pulse Resp B/P (MAP) Pulse Ox O2 Delivery O2 Flow Rate FiO2 02/05/20 16:00 97.9 69 18 144/87 (106) 96 02/05/20 12:10 97 118/84 (95) 02/05/20 12:05 85 131/85 (100) 02/05/20 12:00 97.5 77 20 130/80 (97) 95 02/05/20 12:00 71 02/05/20 09:08 79 148/88 02/05/20 09:00 Room Air 02/05/20 08:00 97.5 79 18 148/88 (108) 97 02/05/20 08:00 107 02/05/20 06:40 98.1 02/05/20 04:00 97.7 55 20 152/81 (104) 95 02/05/20 04:00 55 02/05/20 00:00 97.7 54 20 130/76 (94) 100 02/05/20 00:00 54 02/04/20 21:00 Room Air 02/04/20 20:00 64 02/04/20 20:00 98.1 66 20 136/87 (103) 94 Intake and Output 02/04/20 02/05/20 19:00 07:00 Intake Total 1200 ml Balance 1200 ml Intake Oral 1200 ml # Voids 2 2 # Bowel Movements 1 Laboratory Tests Test 02/04/20 18:00 02/05/20 11:55 Total Creatine Kinase 123 U/L (26-308) Aldolase Pending Vitamin B12 Level 561 PG/ML (193-986) Methylmalonic Acid Pending Thyroid Stimulating Hormone (TSH) 0.936 uiU/mL (0.358-3.740) Urine Color Pale yellow Urine Appearance Clear Urine pH 5 (4.5-8.0) Urine Specific [place] 1.010 (1.005-1.035) Urine Protein Negative (NEGATIVE) Urine Glucose (UA) Negative (NEGATIVE) Urine Ketones Negative (NEGATIVE) Urine Blood 2+ (NEGATIVE) H Urine Nitrite Negative (NEGATIVE) Urine Bilirubin Negative (NEGATIVE) Urine Urobilinogen Normal MG/DL (0.0-1.0) Urine Leukocyte Esterase Negative (NEGATIVE) Urine RBC 0-2 /HPF (0 - 0) H Urine WBC 0 /HPF (0 - 0) Urine Squamous Epithelial Cells Occasional /LPF Urine Bacteria Occasional /HPF (NONE) Microbiology Date/Time Source Procedure Growth Status 02/03/20 11:06 Nasopharynx SARS-CoV-2 RdRp Gene Assay - Final Complete Objective HEAD AND NECK: No JVD. LUNGS: Clear. CARDIOVASCULAR: Regular S1 and S2. Sternotomy scar is intact. ABDOMEN: Soft. EXTREMITIES: No pitting edema. Odell Lehman MD Feb 05, 2020 16:54
--- NOTE | 2020-02-05 20:54 | General Progress Note ---
Assessment/Plan Problem List: (1) Chest pain ICD Codes: R07.9 - Chest pain, unspecified SNOMED: 09283183, 401691320 (2) Syncope ICD Codes: R55 - Syncope and collapse SNOMED: 769282712, 665180473 (3) CAD (coronary artery disease) ICD Codes: I25.10 - Atherosclerotic heart disease of [place] coronary artery without angina pectoris SNOMED: 99536289 (4) History of CVA (cerebrovascular accident) ICD Codes: Z86.73 - Personal history of transient ischemic attack (TIA), and cerebral infarction without residual deficits SNOMED: 364152472 (5) HTN (hypertension) ICD Codes: I10 - Essential (primary) hypertension SNOMED: 89652465 (6) Dyslipidemia ICD Codes: E78.5 - Hyperlipidemia, unspecified SNOMED: 122424378, 478860975 (7) ACS (acute coronary syndrome) ICD Codes: I20.0 - Unstable angina SNOMED: 068894905 (8) Presence of IVC filter ICD Codes: Z95.828 - Presence of other vascular implants and grafts SNOMED: 184915900452898, 363391598 (9) NSTEMI (non-ST elevated myocardial infarction) ICD Codes: I21.4 - Non-ST elevation (NSTEMI) myocardial infarction SNOMED: 16111782, 773916857 Status: progressing Assessment/Plan: afebrile needs pt /ot cad h/o cva weak htn reviewed chart and labs Subjective ROS Limited/Unobtainable: Yes Allergies: Coded Allergies: NO KNOWN ALLERGIES (Verified Allergy, Unknown, 02/03/20) Objective Last 24 Hour Vital Signs Date Time Temp Pulse Resp B/P (MAP) Pulse Ox O2 Delivery O2 Flow Rate FiO2 02/05/20 16:00 68 02/05/20 16:00 97.9 69 18 144/87 (106) 96 02/05/20 16:00 69 71 77 02/05/20 12:10 97 118/84 (95) 02/05/20 12:05 85 131/85 (100) 02/05/20 12:00 97.5 77 20 130/80 (97) 95 02/05/20 12:00 71 02/05/20 09:08 79 148/88 02/05/20 09:00 Room Air 02/05/20 08:00 97.5 79 18 148/88 (108) 97 02/05/20 08:00 107 02/05/20 06:40 98.1 02/05/20 04:00 97.7 55 20 152/81 (104) 95 02/05/20 04:00 55 02/05/20 00:00 97.7 54 20 130/76 (94) 100 02/05/20 00:00 54 02/04/20 21:00 Room Air Intake and Output 02/04/20 02/05/20 19:00 07:00 Intake Total 1200 ml Balance 1200 ml Intake Oral 1200 ml # Voids 2 2 # Bowel Movements 1 Laboratory Tests 02/05/20 11:55: Urine Color Pale yellow, Urine Appearance Clear, Urine pH 5, Urine Specific [place] 1.010, Urine Protein Negative, Urine Glucose (UA) Negative, Urine Ketones Negative, Urine Blood 2+H, Urine Nitrite Negative, Urine Bilirubin Negative, Urine Urobilinogen Normal, Urine Leukocyte Esterase Negative, Urine RBC 0-2H, Urine WBC 0, Urine Squamous Epithelial Cells Occasional, Urine Bacteria Occasional Height (Feet): 5 Height (Inches): 7.00 Weight (Pounds): 224 Rush Dawn MD Feb 05, 2020 20:54
[2020-02-05 21:27] LABS: APPEARANCE,URINE CLEAR; BILIRUBIN, URINE NEGATIVE (NEGATIVE); COLOR,URINE PALE YELLOW; GLUCOSE, URINE (UA) NEGATIVE (NEGATIVE); KETONES,URINE NEGATIVE (NEGATIVE); LEUKOCYTE ESTERASE ,URINE NEGATIVE (NEGATIVE); NITRITE,URINE NEGATIVE (NEGATIVE); PH,URINE 7 (4.5-8.0); PROTEIN,URINE NEGATIVE (NEGATIVE); UROBILINOGEN,URINE 1 MG/DL (0.0-1.0)
[2020-02-05] MEDS: Atorvastatin 20mg tab ORAL SCH (22:21)
[2020-02-06] VITALS: BP 124/79
[2020-02-06 04:00] VITALS: BP 142/88
[2020-02-06 08:00] VITALS: BP 164/99
[2020-02-06] MEDS: Sertraline 100mg tab ORAL SCH (08:26)
[2020-02-06] MEDS: Aspirin EC 81mg tab ORAL SCH (08:27)
[2020-02-06] MEDS: Xarelto 10mg tab ORAL SCH (08:27)
[2020-02-06] MEDS: Furosemide 40mg tab ORAL SCH (08:27)
--- NOTE | 2020-02-06 09:13 | Neurology Progress Note ---
Interim History Interim History ROS Limited/Unobtainable: Yes Complaints: patient without change Objective Physical Exam Last Vital Signs Date Time Temp Pulse Resp B/P (MAP) Pulse Ox O2 Delivery O2 Flow Rate FiO2 02/06/20 08:26 69 164/99 02/06/20 08:00 97.7 20 97 02/05/20 21:00 Room Air Laboratory Tests Test 02/05/20 11:55 02/06/20 08:15 Urine Color Pale yellow Urine Appearance Clear Urine pH 5 (4.5-8.0) Urine Specific [place] 1.010 (1.005-1.035) Urine Protein Negative (NEGATIVE) Urine Glucose (UA) Negative (NEGATIVE) Urine Ketones Negative (NEGATIVE) Urine Blood 2+ (NEGATIVE) H Urine Nitrite Negative (NEGATIVE) Urine Bilirubin Negative (NEGATIVE) Urine Urobilinogen Normal MG/DL (0.0-1.0) Urine Leukocyte Esterase Negative (NEGATIVE) Urine RBC 0-2 /HPF (0 - 0) H Urine WBC 0 /HPF (0 - 0) Urine Squamous Epithelial Cells Occasional /LPF Urine Bacteria Occasional /HPF (NONE) Troponin I 0.049 ng/mL (0.000-0.056) Neurologic Exam Mental Status: alert, oriented x4, normal cognition, good mathematical skills, normal recent memory, normal remote memory, preserved visuospatial function Speech: normal speech, no dysarthia Language: normal language, no aphasia Cranial Nerves III, IV, : pupils - pupils 4.00 Cranial Nerve V: normal facial sensations, temporales function normal, masseters function normal, pterygoids function normal Cranial Nerve VIII: normal hearing, no nystagmus Cranial Nerve X: no voice hoarseness Cranial Nerve XI: SCM symmetric, trapezii function normal Cranial Nerve XII: tongue midline, no tongue atrophy/fasciculations Motor System: normal muscle tone, strength 5/5 - lower ext proximal 4/5, no involuntary movement, no muscle wasting Deep Tendon Reflexes: 0 ankle (L), 0 ankle (R); 1+ bicep (L), 1+ bicep (R), 1+ tricep (L), 1+ tricep (R), 1+ brachioradialis (L), 1+ brachioradialis (R), 1+ knee (L), 1+ knee (R) Reflexes: flexor plantar (L), flexor plantar (R) Stance: normal, other - romberg + Impression/Recommendations Status: progressing Diagnostic Impression statin myopathy,vasodepressor syncope Elliot Santos MD Feb 06, 2020 09:13
--- NOTE | 2020-02-06 09:46 | General Progress Note ---
Assessment/Plan Assessment/Plan: (1) Multiple Joint Osteoarthritis (2) Multiple Joint pain Patient will be continued on Tramadol D/w Dr. Barlow and he concurred Subjective Date patient seen: Feb 06, 2020 Time patient seen: 08:45 - am Allergies: Coded Allergies: NO KNOWN ALLERGIES (Verified Allergy, Unknown, 02/03/20) Subjective Constitutional: Reports: weakness Eye: Reports: no symptoms ENT: Reports: no symptoms Respiratory: Reports: no symptoms Cardiovascular: Reports: no symptoms Gastrointestinal: Reports: no symptoms Genitourinary: Reports: no symptoms Musculoskeletal: Reports: joint pain Skin: Reports: no symptoms Psychiatric: Reports: no symptoms Neurological: Reports: no symptoms Endocrine: Reports: no symptoms Hematologic/Lymphatic: Reports: no symptoms SUBJECTIVE: Patient reports pain is stable and using 3 doses of tramadol as needed. No new complaints at this time. Objective Last 24 Hour Vital Signs Date Time Temp Pulse Resp B/P (MAP) Pulse Ox O2 Delivery O2 Flow Rate FiO2 02/06/20 08:26 69 164/99 02/06/20 08:00 97.7 69 20 164/99 (120) 97 02/06/20 04:00 97.1 69 20 142/88 (106) 94 02/06/20 04:00 60 02/06/20 00:00 96.2 61 17 124/79 (94) 94 02/06/20 00:00 71 02/05/20 21:00 Room Air 02/05/20 20:00 60 02/05/20 20:00 98.1 61 19 140/95 (110) 96 02/05/20 16:00 68 02/05/20 16:00 97.9 69 18 144/87 (106) 96 02/05/20 16:00 69 71 77 02/05/20 12:10 97 118/84 (95) 02/05/20 12:05 85 131/85 (100) 02/05/20 12:00 97.5 77 20 130/80 (97) 95 02/05/20 12:00 71 Intake and Output 02/05/20 02/06/20 19:00 07:00 Intake Total 480 ml Balance 480 ml Intake Oral 480 ml # Voids 4 Laboratory Tests 02/05/20 11:55: Urine Color Pale yellow, Urine Appearance Clear, Urine pH 5, Urine Specific [place] 1.010, Urine Protein Negative, Urine Glucose (UA) Negative, Urine Ketones Negative, Urine Blood 2+H, Urine Nitrite Negative, Urine Bilirubin Negative, Urine Urobilinogen Normal, Urine Leukocyte Esterase Negative, Urine RBC 0-2H, Urine WBC 0, Urine Squamous Epithelial Cells Occasional, Urine Bacteria Occasional 02/06/20 08:15: Troponin I 0.049 Height (Feet): 5 Height (Inches): 7.00 Weight (Pounds): 224 Objective General Appearance: no apparent distress, alert HEENT: PERRL Neck: non-tender, normal alignment Respiratory/Chest: lungs clear, normal breath sounds Cardiovascular/Chest: normal rate, regular rhythm Abdomen: non tender, soft Extremities: normal range of motion, non-tender Neurologic: alert, oriented x 3 Elliott Holliday Feb 06, 2020 09:46
[2020-02-06] MEDS: Nitroglycerin Subl 0.4mg tab SL PRN ×2 (10:00→10:03)
[2020-02-06 12:00] VITALS: BP 132/77
[2020-02-06] MEDS ORDERED: ONE DAILY MUL400 MCG ORAL (12:47)
--- NOTE | 2020-02-06 12:56 | Cardiac Electrophysiology PN ---
Assessment/Plan Assessment/Plan 1. Chest pain. The patient with history of CABG 2014 in [place] and stent placement. Ruled out for [place] protocol.( Troponins are all flat and Low 0.08, 0.08 , 0.09) His previous admission here was on September 22, 2019 for similar presentation. Lexiscan Stress test was done today.Developed T wave inversion in Lateral leads. Nuclear report is pending 2. NSVT 15 beats. Stress test report pending. Continue Toprol 3. Hypertension on Norvasc 10, metoprolol 25 twice a day, Lasix 40 mg daily. 4. History of DVT, status post IVC filter, on Xarelto 20 mg daily. 5. Status post multiple abdominal surgeries. DW RN, DR Cooper who did the stress test and Dr Dawn Subjective Subjective Alert in NAD. Had 15 beats of NSVT 02/04/20. Stress test was done by Dr. Cooper today. Nuclear report is pending Objective Last 24 Hour Vital Signs Date Time Temp Pulse Resp B/P (MAP) Pulse Ox O2 Delivery O2 Flow Rate FiO2 02/06/20 10:03 154/107 02/06/20 10:00 164/98 02/06/20 09:00 Room Air 02/06/20 08:26 69 164/99 02/06/20 08:00 62 02/06/20 08:00 97.7 69 20 164/99 (120) 97 02/06/20 04:00 97.1 69 20 142/88 (106) 94 02/06/20 04:00 60 02/06/20 00:00 96.2 61 17 124/79 (94) 94 02/06/20 00:00 71 02/05/20 21:00 Room Air 02/05/20 20:00 60 02/05/20 20:00 98.1 61 19 140/95 (110) 96 02/05/20 16:00 68 02/05/20 16:00 97.9 69 18 144/87 (106) 96 02/05/20 16:00 69 71 77 Intake and Output 02/05/20 02/06/20 19:00 07:00 Intake Total 480 ml Balance 480 ml Intake Oral 480 ml # Voids 4 Laboratory Tests Test 02/06/20 08:15 Troponin I 0.049 ng/mL (0.000-0.056) Objective HEAD AND NECK: No JVD. LUNGS: Clear. CARDIOVASCULAR: Regular S1 and S2. Sternotomy scar is intact. ABDOMEN: Soft. EXTREMITIES: No pitting edema. Odell Lehman MD Feb 06, 2020 12:56
[2020-02-06 16:00] VITALS: BP 131/80
--- NOTE | 2020-02-06 16:24 | Diagnostic Imaging Report ---
Indications: 64-year-old male with chest pain Technique: Single day single isotope protocol utilized. Initially, resting images obtained using IV administration 10.8 millicuries 99M technetium Myoview. Subsequently, patient underwent lexiscan stress testing. See cardiology report for details. During Lexiscan infusion, IV administration 30.5 mCi 99 M technetium Myoview. SPECT and planar images obtained. SPECT images gated to 8 phases of the cardiac cycle were also obtained, and reformatted into cine images for evaluation of ejection fraction. Comparison: 09/22/2019 Findings: Per cardiology report, patient experienced mild chest pain during infusion. Per cardiology report, resting EKG demonstrates normal sinus rhythm, left axis deviation and left anterior fascicular block. During infusion, new T-wave inversion and Q waves in the lateral leads developed. Imaging demonstrates no fixed nor reversible poststress perfusion defects. There is minimal left ventricular dilatation. The calculated post stress ejection fraction is 40%.. Calculated post stress ejection fraction 40%. There is global hypokinesis Impression: Ischemic clinical response to pharmacologic stress, per cardiology report Ischemic electrocardiographic response to pharmacologic stress, per cardiology report No imaging findings to suggest ischemia, at level of stress achieved. Calculated post stress ejection fraction 40%
--- NOTE | 2020-02-06 16:39 | Pulmonology Progress Note ---
Subjective ROS Limited/Unobtainable: Yes Interval Events: None new Constitutional: Reports: no symptoms HEENT: Repors: no symptoms Respiratory: Reports: no symptoms Cardiovascular: Reports: no symptoms Gastrointestinal/Abdominal: Reports: no symptoms Allergies: Coded Allergies: NO KNOWN ALLERGIES (Verified Allergy, Unknown, 02/03/20) Objective Last 24 Hour Vital Signs Date Time Temp Pulse Resp B/P (MAP) Pulse Ox O2 Delivery O2 Flow Rate FiO2 02/06/20 16:00 98.1 72 20 131/80 (97) 97 02/06/20 12:00 97.7 81 18 132/77 (95) 100 02/06/20 12:00 86 02/06/20 10:03 154/107 02/06/20 10:00 164/98 02/06/20 09:00 Room Air 02/06/20 08:26 69 164/99 02/06/20 08:00 62 02/06/20 08:00 97.7 69 20 164/99 (120) 97 02/06/20 04:00 97.1 69 20 142/88 (106) 94 02/06/20 04:00 60 02/06/20 00:00 96.2 61 17 124/79 (94) 94 02/06/20 00:00 71 02/05/20 21:00 Room Air 02/05/20 20:00 60 02/05/20 20:00 98.1 61 19 140/95 (110) 96 Intake and Output 02/05/20 02/06/20 19:00 07:00 Intake Total 480 ml Balance 480 ml Intake Oral 480 ml # Voids 4 General Appearance: no acute distress HEENT: normocephalic Respiratory: chest wall non-tender, lungs clear Cardiovascular: normal peripheral pulses Abdomen: normal bowel sounds Laboratory Tests 02/06/20 08:15: Troponin I 0.049 Current Medications Medications (Trade) Dose Ordered Sig/Hal Route PRN Reason Start Time Stop Time Status Last Admin Dose Admin Amlodipine Besylate (Norvasc) 10 mg DAILY ORAL 02/04/20 09:00 03/05/20 08:59 02/06/20 08:26 Aspirin (Ecotrin) 81 mg DAILY ORAL 02/04/20 09:00 03/20/20 08:59 02/06/20 08:27 Atorvastatin Calcium (Lipitor) 20 mg BEDTIME ORAL 02/03/20:00 05/03/20 20:59 02/05/20 22:21 Clonidine HCl (Catapres Tab) 0.1 mg Q2H PRN ORAL if sbp >170 02/03/20 20:06 05/03/20 20:05 02/04/20 04:31 Furosemide (Lasix) 80 mg DAILY ORAL 02/04/20 09:00 03/05/20 08:59 02/06/20 08:27 Gadobutrol (Gadavist) 7.5 mmol NOW PRN IV Radiology Procedure 02/03/20 19:30 02/07/20 19:25 Hydrocortisone (Hydrocortisone) 1 applic Q4H PRN TOPIC Itching 02/05/20 16:30 05/05/20 16:29 02/05/20 18:29 Nitroglycerin (Ntg) 0.4 mg Q5M PRN SL Prn Chest Pain 02/06/20 09:55 03/07/20 09:54 02/06/20 10:03 Potassium Chloride (K-Dur) 10 meq DAILY ORAL 02/04/20 09:00 05/04/20 08:59 02/06/20 08:26 Regadenoson (Lexiscan) 0.4 mg ONCE PRN IV stress test 02/04/20 18:00 02/06/20 18:00 Rivaroxaban (Xarelto) 20 mg DAILY ORAL 02/04/20 09:00 05/04/20 08:59 02/06/20 08:27 Sertraline HCl (Zoloft) 200 mg DAILY ORAL 02/04/20 09:00 03/05/20 08:59 02/06/20 08:26 Tramadol HCl (Ultram) 50 mg Q4H PRN ORAL for severe pain 02/03/20 15:30 02/10/20 15:29 02/05/20 06:10 Assessment/Plan Assessment/Plan IMPRESSION: 1. Small left pleural effusion. 2. Non-STEMI. 3. CAD. 4. CABG. 5. History of DVT and IVC filter. 6. Chronic anticoagulation. DISCUSSION: Continue diuretics. I have ordered oxygen and pulmonary hygiene. Predominant care as per Cardiology. Saturating well on RA. Lester De Leon Omar Syed MD Feb 06, 2020 16:39
--- NOTE | 2020-02-08 10:38 | Discharge Summary ---
Discharge Summary Discharge Summary _ DATE OF ADMISSION: 02/03/2020 DATE OF DISCHARGE: 02/06/2020 DISCHARGED BY: Dr. Rush Goldsmith CONSULTANTS: Dr. Selvin Hinkle BRIEF HOSPITAL COURSE: The patient is a 64-year-old male, with past medical history of CAD status post stent x2, on Plavix, CABG, recurrent PE/DVT status post IVC filter, atrial fibrillation, hypertension, dyslipidemia, ruptured diverticulitis status post exploratory laparotomy, depression, presented to ED secondary to a presyncopal episode. The patient started feeling dizzy the day prior. In the morning, he woke up with left-sided substernal chest pressure radiating to the left upper extremity that prompted him to come to the emergency department. He stated he fell to the ground and may have hit his head on the carpet. There was questionable LOC. He denied any vision changes, focal weakness, nausea, vomiting, diarrhea, melena, hematochezia, neck pain, back pain and abdominal pain. Symptoms were gradual in onset. Upon evaluation at ED, vital signs were stable. EKG showed normal sinus rhythm with left anterior fascicular block. No evidence of STEMI. Initial troponin was elevated to 0.08. Renal function was within normal limits. Chest x-ray showed previous CABG and left greater than right pleural effusion, no evidence of pneumothorax or lobar pneumonia. Head CT was negative for intracranial hemorrhage. EKG was in sinus rhythm with left anterior fascicular block with no ST abnormality anterior. He was given aspirin and nitroglycerin. Due to his risk factors, he was admitted to telemetry. He was admitted to monitored floor. Disease Case Manager and licensed tax consultant were consulted. Cardiac enzymes were monitored. Repeat EKG done. He was continued on Norvasc, metoprolol and Lasix. He was continued on Xarelto. He had small pleural effusion in the left lung, would benefit from diuretics. Lead Sustainability Specialist was consulted for management of high blood pressure. He underwent neuro evaluation. The patient had 2 fainting episodes in the past. First 1 was he was in [place], [place] about 20 years ago. He woke up in the hospital and he was told he had 3 coronary artery bypass surgeries. There was no other reason for fainting. Around 3 or 4 years ago, he was also in [place], he had no chest pain and he woke up in the hospital he had deep vein thrombosis in the legs where he had an IVC placed. The patient also has atrial fibrillation. He denies any memory loss or seizure. Denies dysarthria, dysphagia, loss of sense of smell or taste or diplopia. Patient was recommended to undergo MRI of the brain. Stool OB was negative. He was given physical therapy. Patient complained of chronic constant joint pains. litigation specialist was consulted. He was given tramadol. MRI showed chronic age-related changes, negative for acute intracranial bleed, mass-effect or contrast-enhancing lesion. Echocardiogram showed normal left ventricular size, systolic function and wall motion. Left ventricular ejection fraction 55%. No aortic regurgitation. Mild mitral regurgitation. Mild diastolic dysfunction. Cardiac enzymes did not have any peak or trough. He had 15 beats of NSVT on 02/04/20. He underwent Lexiscan stress test. Results did not show any findings to suggest ischemia. Patient was discharged back to longterm. FINAL DIAGNOSES: Vasodepressor syncope Chest pain with history of CABG and stent placement Nonsustained ventricular tachycardia Hypertension Small left pleural effusion History of DVT and IVC filter Chronic anticoagulation DISPOSITION: The patient was discharged back to longterm. DISCHARGE MEDICATIONS: Refer to Discharge Medication List. I have been assigned to complete a discharge summary on this account, I was not involved with the patient's management.--LAURA Gregg Jacqueline Robles NP Feb 08, 2020 10:38
== END 2020-02-06 19:17 | DRG 281 ==
LOC: EMR 10:30 → EDBEDREQ 11:54 → 2E 12:33
DX: I21.4 Non-ST elevation (NSTEMI) myocardial infarction (principal); F31.89 Other bipolar disorder; I25.10 Atherosclerotic heart disease of native coronary artery without angina pectoris; Z95.5 Presence of coronary angioplasty implant and graft; Z95.1 Presence of aortocoronary bypass graft; I48.91 Unspecified atrial fibrillation; Z90.49 Acquired absence of other specified parts of digestive tract; Z87.891 Personal history of nicotine dependence; Z79.01 Long term (current) use of anticoagulants; Z79.82 Long term (current) use of aspirin; Z86.711 Personal history of pulmonary embolism; Z86.718 Personal history of other venous thrombosis and embolism; I34.0 Nonrheumatic mitral (valve) insufficiency; I10 Essential (primary) hypertension; Z95.828 Presence of other vascular implants and grafts; Z79.02 Long term (current) use of antithrombotics/antiplatelets; M15.9 Polyosteoarthritis, unspecified; E78.5 Hyperlipidemia, unspecified; I44.7 Left bundle-branch block, unspecified
CPT/HCPCS: 36415; 70450; 70553; 71045; 78452; 80053; 80061; 81001; 82085; 82270; 82550; 82607; 83036; 83735; 83880; 83921; 84100; 84443; 84484; 85025; 85610; 85730; 86140; 93005; 93017; 93306; 99291; A9585; U0002